=== PATIENT | female | born 1990 | race Caucasian/White ===

== ENCOUNTER 2020-11-22 11:00 | Outpatient (CLI) | payer OTHER, SELFPAY ==
--- NOTE | ~2020-11-22 | US_ITS ---
EXAMINATION: US breast RT limited HISTORY: Palpable lump in the upper outer quadrant of the right breast. Patient with history of segun gn excisional biopsy on the right. TECHNIQUE: Limited right breast ultrasound was performed in the area of clinical concern. FINDINGS: There is no evidence of focal abnormal cystic or solid mass in the vicinity of the palpable abnormality. Features consistent with prior excisional biopsy are noted. More laterally in the upper outer quadrant of the breast, there is normal-appearing dense fibroglandular tissue. IMPRESSION: No suspicious sonographic correlate is identified for the reported palpable abnormality of concern. F urther evaluation at this time should be based on clinical assessment. Continued follow-up physical e xamination is recommended. BI-RADS Category 2: Benign finding(s). Reviewed, dictated and finalized at location A. OYMENT EDUCATIONAL COORD IMPRESSION: No suspicious sonographic correlate is identified for the reported palpable abn ormality of concern. Further evaluation at this time should be based on clinica l assessment. Continued follow-up physical examination is recommended. BI-RADS Category 2: Benign finding(s).
== END 2020-11-22 11:01 | disposition home or self-care (01) ==
LOC: ANHIMG 11:01
PROVIDERS: PCP Internal Medicine; Visit Provider Obstetrics & Gynecology
DX: N63.11 Unspecified lump in the right breast, upper outer quadrant (principal)
CPT/HCPCS: 76642

== ENCOUNTER → 2023-05-16 15:18 | Outpatient (CLI) | payer OTHER, SELFPAY ==
--- NOTE | ~2023-05-16 | US_ITS ---
EXAMINATION: US breast RT limited HISTORY: Painful lump in the upper outer quadrant of the left breast. TECHNIQUE: Limited right breast ultrasound performed. FINDINGS: There is no evidence of focal abnormal cystic or solid mass in the vicinity of the patient reported right breast pain. IMPRESSION: No specific sonographic correlate is identified for the patient's reported right breast pain. Further evaluation at this time should be based on clinical assessment. Continued follow-up physical examina tion is recommended. BI-RADS Category 1: Negative Reviewed, dictated and finalized at location A. IMPRESSION: No specific sonographic correlate is identified for the patient's reported righ t breast pain. Further evaluation at this time should be based on clinical asse ssment. Continued follow-up physical examination is recommended. BI-RADS Category 1: Negative
== END ==
PROVIDERS: PCP Obstetrics & Gynecology; Visit Provider Obstetrics & Gynecology
DX: N63.10 Unspecified lump in the right breast, unspecified quadrant (principal)
CPT/HCPCS: 76642

== ENCOUNTER 2024-05-25 12:57 | Emergency (ER) | payer OTHER, SELFPAY ==
[2024-05-25 13:06] VITALS: BP 107/73; PULSE 79; RESP 18; TEMP 37.1; O2SAT 98
--- NOTE | 2024-05-25 13:10 | ED.URI ---
HPI - URI/Sore Throat General Chief Complaint: Upper Respiratory Infection Stated Complaint: throat Time Seen by Provider: 05/25/24 13:10 Source: patient Mode of arrival: ambulatory Limitations: no limitations History of Present Illness HPI Narrative: 34 yo F presents with c/o sore throat for 2 to 3 days. Sinus pressure, congestion for over a week. Taking zyrtec daily. Feels fatigue and run down. Afebrile. has been taking amox 500mg TID for 1 wk. No improvement of symptoms. Had antibiotic for dental infection. All systems reviewed and negative except as noted above. Related Data Home Medications Medication Instructions Recorded Confirmed norethindrone 1 mg-ethinyl 1 tablet PO DAILY 05/15/21 05/25/24 estradiol 10 mcg (24)-iron 10 mcg(2) tablet (Lo Loestrin Fe) alprazolam 1 mg tablet See Rx Instructions .Route 05/25/24 05/25/24 .COMPLEX PRN Anxiety amoxicillin 500 mg tablet See Rx Instructions .Route .COMPLEX 05/25/24 05/25/24 duloxetine 30 mg capsule,delayed 30 mg PO DAILY 05/25/24 05/25/24 release lisdexamfetamine 30 mg capsule 30 mg PO 05/25/24 (Vyvanse) omeprazole 40 mg capsule,delayed mg 05/25/24 release paroxetine HCl 37.5 mg mg PO 05/25/24 tablet,extended release 24 hr Allergies Allergy/AdvReac Type Severity Reaction Status Date / Time No Known Allergies Allergy Unverified 05/25/21 10:30 Review of Systems Review of Systems: CONSTITUTIONAL: Denies fever, chills, or sweats. EYES: Denies visual changes, redness, or discharge. ENT: Reports rhinorrhea, congestion, sore throat. Denies otalgia. CARDIOVASCULAR: Denies chest pain, palpitations, or edema. RESPIRATORY: Denies cough or dyspnea. GASTROINTESTINAL: Denies abdominal pain, nausea, vomiting, or diarrhea. GENITOURINARY: Denies dysuria or hematuria. SKIN: Denies rash or itching. MUSCULOSKELETAL: Denies back pain, joint pain, or myalgia. NEUROLOGIC: Denies headache, numbness, or weakness. PSYCHIATRIC: Denies anxiety or depression. All other systems reviewed are negative, except as documented in HPI. [facility] Family History Family History (System 05/25/21 @ 10:30 by Meka Tran) Mother Family history of blood dyscrasia Hypertension Family history of elevated blood lipids Grandparent Carcinoma of colon Other Diabetes mellitus Social History Social History (System 05/25/21 @ 10:30 by Meka Tran) Smoking status: Never smoker Second hand tobacco smoke exposure: No Alcohol intake: never Comments At time of signature, agree with nursing past medical, surgical, social and family history. There is no relevant family history pertinent to the presenting complaint. Exam Narrative: GENERAL: This is a well-nourished, well-developed patient, in no apparent distress. HEAD: normocephalic, atraumatic. EYES: PERRL. Sclera clear/white. Vision is grossly intact. EARS: External ears normal, auditory canals clear and without drainage, TMs normal without perforation. Hearing grossly intact. NOSE: External nose normal with mild congestion, erythema and swelling to bilateral nares THROAT: Mucous membranes moist, no significant erythema. No swelling or exudates. NECK: Neck supple, non-tender without lymphadenopathy, masses or thyromegaly. CARDIOVASCULAR: Regular rate and rhythm without murmurs, gallops, or rubs. RESPIRATORY: Clear to auscultation. Breath sounds equal bilaterally. No wheezes, rales, or rhonchi. SKIN: warm, Dry, intact with no suspicious lesions or rash, good texture and turgor. NEURO: awake, alert, and oriented to person, place and time. There were no obvious focal neurologic abnormalities. EXTREMITIES: No joint tenderness, effusion, or edema noted. Course Course Level of Care: Express Care Visit Vital Signs Vital signs: Vital Signs Temperature 37.1 C 05/25/24 13:06 Pulse Rate 79 05/25/24 13:06 Respiratory Rate 18 05/25/24 13:06 Blood Pressure 107/73 05/25/24 13:06
== END 2024-05-25 13:20 | disposition home or self-care (01) ==
PROVIDERS: Emergency Provider Nurse Practitioner Family; PCP Internal Medicine
DX: J01.90 Acute sinusitis, unspecified (principal); K21.9 Gastro-esophageal reflux disease without esophagitis; F41.9 Anxiety disorder, unspecified; F32.A Depression, unspecified
CPT/HCPCS: 99213; G0463

== ENCOUNTER 2025-02-25 16:07 | Emergency (ER) | payer OTHER, SELFPAY ==
--- OUTSIDE RECORDS SUMMARY | 2025-02-25 16:09 | XMS_ITS | Encounter Summary ---
Author Organization [facility] Address [address] [place] [address] Phone Care Team Providers Care Sr Account Executive Name Role Phone Thong Martin MD Primary Care Provider Carlos Gallardo MD Unavailable [phone] Reason for Visit * Reason Comments Medication Refill Encounter Details Date Type Department Care Team (Late st Contact Info) Description 10/10/2023 [facility]ill [facility] [address] [place] [address] Thong Martin MD [address] [address] Medication Refill Social History Tobacco Use Types Packs/Day Years Used Date Smoking Tobacco: Never Smokeless Tobacco: Never Alcohol Use Standard Drinks/Week Comments Yes 0 (1 standard drink = 0.6 oz pur e alcohol) rarely PHQ-2 Answer Date Recorded Total Score - Questions 1-9 0 11/22 Education Answer Date Recorded What is the highest level of school you have completed or the highest degree you have received? Associate degree: occupational, technical, or vocational program 06/12/2023 Sexually Active Control Partners Comments Yes Male Comments No Sex and Gender Information Value Date Recorded Sex Assigned at Not on file Legal Sex Female 11:47 PM CDT Gender Identity Not on file Sexual Orientation Straight 07/03/2023 4: 54 PM CDT documented as of this encounter Miscellaneous Notes * Telephone Encounter - Allie Fitch RN - 10/11/2023 9:25 AM CST PDMP 09/05/23 Medication failed the protocol, provider to review and approve the medication order if appropriate. Requested Prescriptions Pending Prescriptions Disp Refills ALPRAZolam (XANAX) 1 MG Tablet [Pharmacy Med Name: ALPRAZOLAM 1MG TABLETS] 30 Tablet 0 Sig: TAKE 1 TABLET BY MOUTH THREE TIMES DAILY NEEDED FOR SLEEP Not Delegated - Benzodiazepines Protocol Failed - 10/10/2023 10:13 PM Failed - This refill cannot be delegated Passed - Visit with relevant provider in past 12 months or upcoming 90 days Recent Visits Date Type Provider Dept 08/15/23 Office Visit Candy Prabhakar APRN, BASIC COMBATANT SWIMMER [facility] 06/26/23 Office Visit Shailesh Brennan APRN, CNP [facility] 06/13/23 Office Visit Thong Martin MD [facility] 12/14/22 Office Visit Thong Martin MD [facility] 11/30/22 Office Visit [facility] Showing recent visits within past 365 days and meeting all other requirements Future Appointments Date Type Provider Dept 12/17/23 Appointment Thong Martin MD [facility] Showing future appointments within next 90 days and meeting all other 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 documented in this encounter Plan of Treatment Upcoming Encounters Date Type Department Care Team (Late st Contact Info) Description 04/05/2025 2:45 PM CDT Office Visit [facility] - Family Medicine - [place] [address] [place] [address] Thong Martin MD [address] [address] documented as of this encounter Visit Diagnoses Diagnosis Encounter for long-term (current) use of medications Encounter for long-term (current) use of other medications documented in this encounter Additional Health Concerns Infection Onset Date Last Indicated Resolved Time COVID - 19 09/30/2024 09/30/2024 09/30/2024 1:30 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 Respiratory Rule-Out 09/30/2024 09/30/2024 024 1:30 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
--- OUTSIDE RECORDS SUMMARY | 2025-02-25 16:09 | XMS_ITS | Encounter Summary ---
Author Organization [facility] Address [address] [place] [address] Phone Care Team Providers Care Documentum Consultant Name Role Phone Thong Martin MD Primary Care Provider Carlos Gallardo MD Unavailable [phone] Reason for Visit * Reason Comments Medication Refill Encounter Details Date Type Department Care Team (Late st Contact Info) Description 02/07/2024 Refill [facility] [address] [place] [address] Thong Martin MD [address] [address] Medication Refill Social History Tobacco Use Types Packs/Day Years Used Date Smoking Tobacco: Never Smokeless Tobacco: Never Alcohol Use Standard Drinks/Week Comments Yes 0 (1 standard drink = 0.6 oz pur e alcohol) rarely [facility] Utilities Answer Date Recorded In the past 12 months has [employer] electric, gas, oil, or water company threatened to shut off services in your home? No 02/11/2024 Social Connection and Isolat ion Panel [NHANES] Answer Date Recorded In a typical week, how many times do you talk on the phone with family, friends, or neighbors? More than three times a week 02/11/2024 How often do you get togethe r with friends or relatives? Three times a week 02/11/2024 How often do you attend chur ch or sikhism services? Never 02/11/2024 Do you belong to any clubs o r organizations such as gnosticist groups, unions, fraternal or athletic groups, or school groups? No 02/11/2024 How often do you attend meet ings of the clubs or organizations you belong to? Never 02/11/2024 Are you , , di vorced, , never , or living with a partner? 02/11/2024 AUDIT-C Answer Date Recorded Q1: How often do you have a drink containing alc ohol? 2-4 times a month 02/11/2024 Q2: How many drinks containi ng alcohol do you have on a typical day when you are drinking? 1 or 2 02/11/2024 Q3: How often do you have si x or more drinks on one occasion? Less than monthly 02/11/2024 Overall Financial Resource Strain (CARDIA) Answe r Date Recorded How hard is it for you to pa y for the very basics like food, housing, medical care, and heating? Somewhat hard 02/11/2024 PHQ-2 Answer Date Recorded Total Score - Questions 1-9 0 01/20 [facility] - Occupational Stress Questionnaire Answer Date Recorded Do you feel stress - tense, restless, nervous, or anxious, or unable to sleep at night because your mind is troubled all the time - these days? Rather much 02/11/2024 Exercise Vital Sign Answer Date Recorde d On average, how many days pe r week do you engage in moderate to strenuous exercise (like a brisk walk)? 4 days 02/11/2024 On average, how many minutes do you engage in exercise at this level? 60 min 02/11/2024 Hunger Vital Sign Answer Date Recorded Within the past 12 months, y ou worried that your food would run out before you got the money to buy more. Never true 02/11/20 24 Within the past 12 months, t he food you bought just didn't last and you didn't have money to get more. Never true 02/11/2024 PRAPARE - Transportation Answer Date Re corded In the past 12 months, has l ack of transportation kept you from medical appointments or from getting medications? No 01/20 In the past 12 months, has l ack of transportation kept you from meetings, work, or from getting things needed for daily living? No 02/11/2024 Housing Stability Vital Sign Answer Tomás e Recorded In the last 12 months, was t here a time when you were not able to pay the mortgage or rent on time? No 02/11/2024 Number of Places Lived in the Last Year Not on f ile 02/11/2024 In the last 12 months, was t here a time when you did not have a steady place to sleep or slept in a correction (including now)? No 02/11/2024 Education Answer Date Recorded What is the [...] Telephone Encounter - Allie Fitch RN - 02/07/2024 3:43 PM CDT Refused Today (02/07/2024): Patient needs appointment ALPRAZolam (XANAX) 1 MG Tablet Sig: TAKE 1 TABLET BY MOUTH THREE TIMES DAILY NEEDED FOR SLEEP Disp: 30 Tablet Refills: 0 Received from: Pharmacy Refused by Dr Martin. Needs OV documented in this encounter Plan of Treatment Upcoming Encounters Date Type Department Care Team (Late st Contact Info) Description 04/05/2025 2:45 PM CDT [facility] Visit [facility] [address] [place] [address] Thong Martin MD [address] [address] documented as of this encounter Visit Diagnoses Diagnosis Primary insomnia Persistent disorder of initiating or maintaining sleep documented in this encounter Additional Health Concerns Infection Onset Date Last Indicated Resolved Time COVID - 19 09/30/2024 09/30/2024 09/30/2024 1:30 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
--- OUTSIDE RECORDS SUMMARY | 2025-02-25 16:09 | XMS_ITS | Encounter Summary ---
Author Organization [facility] Address [address] [place] [address] Phone Care Team Providers Care Truck Bracer Name Role Phone Thong Martin MD Primary Care Provider [phone] Carlos Gallardo MD Unavailable [phone] Reason for Visit * Reason Comments Medication Refill Encounter Details Date Type Department Care Team (Late st Contact Info) Description 02/07/2024 Refill [facility] - Family Medicine [facility] [address]2 [place] [address] Thong Martin MD [address] [address] Medication Refill Social History Tobacco Use Types Packs/Day Years Used Date Smoking Tobacco: Never Smokeless Tobacco: Never Alcohol Use Standard Drinks/Week Comments Yes 0 (1 standard drink = 0.6 oz pur e alcohol) rarely [facility] Utilities Answer Date Recorded In the past 12 months has [employer] electric, gas, oil, or water company threatened [...] often do you attend chur ch or anglican services? Never 02/11/2024 Do you belong to any clubs o r organizations such as restoration groups, unions, fraternal or athletic groups, or [...] Total Score - Questions 1-9 0 01/20 [facility] of Occupat ional Health - Occupational Stress [...] place to sleep or slept in a intermediate (including now)? No 02/11/2024 Education Answer Date [...] encounter Miscellaneous Notes * Telephone Encounter - Alta Nielsen RMA - 02/10/2024 3:09 PM CDT scheduled * Telephone Encounter - Allie Fitch RN - 02/07/2024 1:57 PM CDT PDMP 12/23/23 Medication failed the protocol, provider to review and approve the medication order if appropriate. Requested Prescriptions Pending Prescriptions Disp Refills ALPRAZolam (XANAX) 1 MG Tablet [Pharmacy Med Name: ALPRAZOLAM 1MG TABLETS] 30 Tablet 0 Sig: TAKE 1 TABLET BY MOUTH THREE TIMES DAILY NEEDED FOR SLEEP Not Delegated - Benzodiazepines Protocol Failed - 02/07/2024 9:46 AM Failed - This refill cannot be delegated Passed - Visit with relevant provider in past 12 months or upcoming 90 days Recent Visits Date Type Provider Dept 08/15/23 Office Visit Candy Prabhakar APRN, SALES AG[employer] [facility] 06/26/23 Office Visit Shailesh Brennan APRN, [facility] 06/13/23 Office Visit Thong Martin MD [facility] Showing recent visits within past 365 days and meeting all other requirements Future Appointments No visits were found meeting these conditions. Showing future appointments within next 90 days and meeting all other requirements documented in this encounter Plan of Treatment Upcoming Encounters Date Type Department Care Team (Late st Contact Info) Description 04/05/2025 2:45 PM CDT Office Visit [facility] - Family Medicine [facility] [address] [place] [address] Thong Martin MD [address] [address] documented as of this encounter Visit Diagnoses Diagnosis Encounter for long-term (current) use of medications Encounter for long-term (current) use of other medications documented in this encounter Additional Health Concerns Infection Onset Date Last Indicated Resolved Time COVID - 19 09/30/2024 09/30/2024 09/30/2024 1:30 PM BOTTOM LINER Respiratory Rule-Out 09/30/2024 09/30/2024 024 1:30 PM BOTTOM LINER Assessment Noted Time PHQ-9 Depression Total Score: 0 12/14/19 23 11:02 AM BOTTOM LINER documented as of this encounter Care Teams Truck Bracer Relationship Specialty Start Date End Date Tohng Martin MD [address] [facility] [place] [address] PCP - General Family Medicine 09/12/15 Carlos Gallardo MD [address] [place] [address] [address] [place] [address] Consulting Physician Obstetrics & Gynecology 08/13/17 documented as of this encounter
--- OUTSIDE RECORDS SUMMARY | 2025-02-25 16:09 | XMS_ITS | Encounter Summary ---
Author Organization [facility] Address [address] [place] [address] Phone Care Team Providers Care Customer Care Manager Name Role Phone Thong Martin MD Primary Care Provider Carlos Gallardo MD Unavailable [phone] Reason for Visit * Reason Comments Medication Refill Encounter Details Date Type Department Care Team (Late st Contact Info) Description 02/24/2023 Refill [facility] [address]2 [place] [address] Thong Martin MD #[address] [address] Medication Refill Social History Tobacco Use Types Packs/Day Years Used Date Smoking Tobacco: Never Smokeless Tobacco: Never Alcohol Use Standard Drinks/Week Comments Yes 0 (1 standard drink = 0.6 oz pur e alcohol) rarely PHQ-2 Answer Date Recorded Total Score - Questions 1-9 0 11/22 Sexually Active Control Partners Comments Yes Male Comments No Sex and Gender Information Value Date Recorded Sex Assigned at Not on file Legal Sex Female 11:47 PM CDT Gender Identity Not on file Sexual Orientation Straight 07/03/2023 4: 54 PM CDT documented as of this encounter Miscellaneous Notes * Telephone Encounter - Allie Ficth RN - 02/25/2023 12:26 PM CDT PDMP 01/21/23 Medication failed the protocol, provider to review and approve the medication order if appropriate. Requested Prescriptions Pending Prescriptions Disp Refills ALPRAZolam (XANAX) 0.5 MG Tablet [Pharmacy Med Name: ALPRAZOLAM 0.5MG TABLETS] 30 Tablet 0 Sig: TAKE 1 TABLET BY MOUTH EVERY NIGHT NEEDED FOR SLEEP Not Delegated - Benzodiazepines Protocol Failed - 02/24/2023 10:01 PM Failed - This refill cannot be delegated Passed - Visit with relevant provider in past 12 months or upcoming 90 days Recent Visits Date Type Provider Dept 12/14/22 Office Visit [facility] 11/30/22 Office Visit Shailesh Brennan APRN, PRESS CLEANER [facility] 06/28/22 Office Visit Thong Martin MD [facility] 04/09/22 Office Visit Candy Prabhakar APRN, [facility] 03/01/22 Office Visit [facility] Showing recent visits within past 365 days and meeting all other requirements Future Appointments No visits were found meeting these conditions. Showing future appointments within next 90 days and meeting all other requirements documented in this encounter Plan of Treatment Upcoming Encounters Date Type Department Care Team (Late st Contact Info) Description 04/05/2025 2:45 PM CDT Office Visit [facility] - Family Medicine [facility] [address]2 [place] [address] Thong Martin MD #[address] [address] documented as of this encounter Visit Diagnoses Diagnosis Primary insomnia Persistent disorder of initiating or maintaining sleep documented in this encounter Additional Health Concerns Infection Onset Date Last Indicated Resolved Time COVID - 19 09/30/2024 09/30/2024 09/30/2024 1:30 PM MANAGER TAX Respiratory Rule-Out 09/30/2024 09/30/2024 024 1:30 PM MANAGER TAX Assessment Noted Time PHQ-9 Depression Total Score: 0 12/14/19 23 11:02 AM MANAGER TAX documented as of this encounter Care Teams Customer Care Manager Relationship Specialty Start Date End Date Thong Martin MD [address] [place] [address] PCP - General Family Medicine 09/12/15 Carlos Gallardo MD [address] [facility] [address] [place] [address] Consulting Physician Obstetrics & Gynecology 08/13/17 documented as of this encounter
--- OUTSIDE RECORDS SUMMARY | 2025-02-25 16:09 | XMS_ITS | Encounter Summary ---
Author Organization [facility] Address [address] [place] [address] Phone Care Team Providers Care Tool Machine Setup Operator Name Role Phone Thong Martin MD Primary Care Provider [phone] Carlos Gallardo MD Unavailable [phone] Reason for Visit * Reason Comments Medication Refill Encounter Details Date Type Department Care Team (Late st Contact Info) Description 02/25/2025 [facility]ill [facility] #2 [place] [address] Thong Martin MD #[address] [address] Medication Refill Social History Tobacco Use Types Packs/Day Years Used Date Smoking Tobacco: Never Smokeless Tobacco: Never Alcohol Use Standard Drinks/Week Comments Yes 0 (1 standard drink = 0.6 oz pur e alcohol) rarely [facility] Utilities Answer Date Recorded In the past 12 months has [employer] electric, gas, oil, or water company threatened to shut off services in your home? No 07/16/2024 Social Connection and Isolat ion Panel [NHANES] Answer Date Recorded In a typical week, how many times do you talk on the phone with family, friends, or neighbors? More than three times a week 07/16/2024 How often do you get togethe r with friends or relatives? Three times a week 07/16/2024 How often do you attend chur ch or tenriism services? Never 07/16/2024 Do you belong to any clubs o r organizations such as restorationism groups, unions, fraternal or athletic groups, or school groups? Yes 07/16/2024 How often do you attend meet ings of the clubs or organizations you belong to? More than 4 times per year 07/16/2024 Are you , , di vorced, , never , or living with a partner? 07/16/2024 AUDIT-C Answer Date Recorded Q1: How often do you have a drink containing alc ohol? Monthly or less 07/16/2024 Q2: How many drinks containi ng alcohol do you have on a typical day when you are drinking? 1 or 2 07/16/2024 Q3: How often do you have si x or more drinks on one occasion? Less than monthly 07/16/2024 Overall Financial Resource Strain (CARDIA) Answe r Date Recorded How hard is it for you to pa y for the very basics like food, housing, medical care, and heating? Not very hard 07/16/2024 PHQ-2 Answer Date Recorded Total Score - Questions 1-9 0 09/20 [facility] ional Health - Occupational Stress Questionnaire Answer Date Recorded Do you feel stress - tense, restless, nervous, or anxious, or unable to sleep at night because your mind is troubled all the time - these days? To some extent 07/16/2024 Exercise Vital Sign Answer Date Recorde d On average, how many days pe r week do you engage in moderate to strenuous exercise (like a brisk walk)? 2 days 07/16/2024 On average, how many minutes do you engage in exercise at this level? 40 min 07/16/2024 Hunger Vital Sign Answer Date Recorded Within the past 12 months, y ou worried that your food would run out before you got the money to buy more. Never true 07/16/20 24 Within the past 12 months, t he food you bought just didn't last and you didn't have money to get more. Never true 07/16/2024 PRAPARE - Transportation Answer Date Re corded In the past 12 months, has l ack of transportation kept you from medical appointments or from getting medications? No 06/22 In the past 12 months, has l ack of transportation kept you from meetings, work, or from getting things needed for daily living? No 07/16/2024 Housing Stability Vital Sign Answer Tomás e [...] place to sleep or slept in a fpc (including now)? No 02/11/2024 Housing Stability Vital Sign Answer Tomás e Recorded In the last 12 months, was t here a time when you were not able to pay the mortgage or rent on time? No 07/16/2024 In the past 12 months, how m any times have you moved where you were living? 0 07/16/2024 At any time in the past 12 m [facility], were you homeless or living in a fpc (including now)? No 07/16/2024 Education Answer Date Recorded What is the [...] PM CDT documented as of this encounter Plan of Treatment Upcoming Encounters Date Type Department Care Team (Late st Contact Info) Description 04/05/2025 2:45 PM CDT Office Visit [facility] Medicine [facility] [address] [place] [address] Thong Martin MD [address] [address] documented as of this encounter Visit Diagnoses Diagnosis Encounter for long-term (current) use of medications Encounter for long-term (current) use of other medications documented in this encounter Additional Health Concerns Assessment Noted Time PHQ-9 Depression Total Score: 0 12/11/20 24 1:07 PM CHEMIST PHYSICAL documented as of this encounter Care Teams Tool Machine Setup Operator Relationship Specialty Start Date End Date Thong Martin MD [facility] [facility] [address] [place] [address] PCP - General Family Medicine 09/12/15 Carlos Gallardo MD [address] [facility] [address] [place] [address] Consulting Physician Obstetrics & Gynecology 08/13/17 documented as of this encounter
--- OUTSIDE RECORDS SUMMARY | 2025-02-25 16:09 | XMS_ITS | Encounter Summary ---
Author Organization [facility] Address [address] [place] [address] Phone Care Team Providers Care Editorial Director Name Role Phone Thong Martin MD Primary Care Provider Carlos Gallardo MD Unavailable [phone] Reason for Visit * Reason Comments Medication Refill Encounter Details Date Type Department Care Team (Late st Contact Info) Description 08/12/2023 Refill [facility] #2 [place] [address] Thong Martin MD #[address] [address] Medication Refill Social History Tobacco Use Types [...] Orientation Straight 07/03/2023 4: 54 PM CDT COVID-19 Exposure Response Date Recorded In the last 10 days, have romina u been in contact with someone who was confirmed or suspected to have Coronavirus/COVID-19? No / Unsure 08/15/2023 8:39 AM CDT documented as of this encounter Miscellaneous Notes * Telephone Encounter - Allie Fitch RN - 08/13/2023 10:55 AM CDT PDMP 07/14/23 - 10 days Medication failed the protocol, provider to review and approve the medication order if appropriate. Requested Prescriptions Pending Prescriptions Disp Refills ALPRAZolam (XANAX) 1 MG Tablet [Pharmacy Med Name: ALPRAZOLAM 1MG TABLETS] 30 Tablet 0 Sig: TAKE 1 TABLET BY MOUTH THREE TIMES DAILY NEEDED FOR SLEEP Not Delegated - Benzodiazepines Protocol Failed - 08/12/2023 4:37 PM Failed - This refill cannot be delegated Passed - Visit with relevant provider in past 12 months or upcoming 90 days Recent Visits Date Type Provider Dept 06/26/23 Office Visit Shailesh Brennan APRN, [facility] 06/13/23 Office Visit Thong Martin MD [facility] [place] 12/14/22 Office Visit Thong Martin MD [facility] 11/30/22 Office Visit Shailesh Brennan APRN, [facility] Showing recent visits within past 365 days [...] Visit [facility] - [place] [address] [place] [address] Thong Martin MD [address] [address] documented as of this encounter Visit Diagnoses Diagnosis Encounter for long-term (current) use of medications Encounter for long-term (current) use of other medications documented in this encounter Additional Health Concerns Infection Onset Date Last Indicated Resolved Time COVID - 19 09/30/2024 09/30/2024 09/30/2024 1:30 PM DELIVERY ARCHITECT Respiratory Rule-Out 09/30/2024 09/30/2024 024 1:30 PM DELIVERY ARCHITECT Assessment Noted Time PHQ-9 Depression Total Score: 0 12/14/19 23 11:02 AM DELIVERY ARCHITECT documented as of this encounter Care Teams Editorial Director Relationship Specialty Start Date End Date Thong Martin MD #2 [facility] [address] [facility] [address] [place] [address] PCP - General Family Medicine 09/12/15 Carlos Gallardo MD [address] [facility] [address] [place] [address] Consulting Physician Obstetrics & Gynecology 08/13/17 documented as of this encounter
--- OUTSIDE RECORDS SUMMARY | 2025-02-25 16:09 | XMS_ITS | Clinical Summary ---
Author Organization [facility] [employer] Address [address] [place] [address] Care Team Providers Care Continuing Education Instructor Name Role Phone Unavailable Primary Care Provider Unavailabl e Source Comments [facility],non-owned Affiliates and Associated Physician Practices is amultiple site organization consisting of ambulatory clinics and hospital sitesin [place], [place], [place] and [place]. This disclosure is being madepursuant to the Care Everywhere program and may not contain all information available regarding this patient. Last updated 18.[facility] [employer] Social History Tobacco Use Types Packs/Day Years Used Date Smoking Tobacco: Never Assessed Comments Unknown Sex and Gender Information Value Date Recorded Sex Assigned at Not on file Legal Sex Female 6:06 PM HYDRO STATION SUPERVISOR Gender Identity Not on file Sexual Orientation Not on file Plan of Treatment Health Maintenance Due Date Last Done Comments HIV SCREENING 01/11/2007 HEPATITIS C SCREENING 01/07/2010 DTAP/TDAP/TD VACCINES (1 - Tdap) 01/11/2011 HEPATITIS B VACCINE (1 of 3 - 19+ 3-dose series) 01/11/2011 COVID-19 VACCINE ( - 2023-2 5 season) 2024 DEPRESSION SCREENING 10/21/2024 INFLUENZA VACCINE (Season Ended) 2025 ZOSTER VACCINE (1 of 2) 01/11/2042 HIB VACCINE Aged Out No longer eligi ble based on patient's age to complete this topic HPV VACCINE Aged Out No longer eligi ble based on patient's age to complete this topic MENINGOCOCCAL (Group B) VACC INE SHARED DECISION-MAKING Aged Out No longer eligibl e based on patient's age to complete this topic MENINGOCOCCAL GROUPS A/C/Y/W VACCINE Aged Out No longer eligible b ased on patient's age to complete this topic PNEUMOCOCCAL VACCINE Aged Out No long er eligible based on patient's age to complete this topic Insurance [facility]
--- OUTSIDE RECORDS SUMMARY | 2025-02-25 16:09 | XMS_ITS | Encounter Summary ---
Author Organization [facility] Address [address] [place] [address] Phone Care Team Providers Care Multiple Spindle Router Operator Name Role Phone Thong Martin MD Primary Care Provider Carlos Gallardo MD Unavailable [phone] Reason for Visit * Reason Comments Medication Refill Encounter Details Date Type Department Care Team (Late st Contact Info) Description 03/04/2021 Refill [facility] #2 [place] [address] Thong Martin MD #[address] [address] Medication Refill Social History Tobacco Use Types Packs/Day Years Used Date Smoking Tobacco: Never Smokeless Tobacco: Never Alcohol Use Standard Drinks/Week Comments Yes 0 (1 standard drink = 0.6 oz pur e alcohol) rarely PHQ-2 Answer Date Recorded Total Score - Questions 1-9 0 11/21 Sexually Active Control Partners Comments Yes Male Comments No Sex and Gender Information Value Date Recorded Sex Assigned at Not on file Legal Sex Female 11:47 PM CDT Gender Identity Not on file Sexual Orientation Straight 07/03/2023 4 :54 PM CDT documented as of this encounter Miscellaneous Notes * Telephone Encounter - Alta Nielsen RMA - 03/07/2021 10:32 AM CDT Pt refuses to make appt at this time. * Telephone Encounter - Allie Fitch RN - 03/07/2021 9:09 AM CDT Patient needs an appointment with PCP for medication. documented in this encounter Plan of Treatment Upcoming Encounters Date Type Department Care Team (Late st Contact Info) Description 04/05/2025 2:45 PM CDT Office Visit [facility] Medicine - [place] [address] [place] [address] Thong Martin [facility] [address] [address] documented as of this encounter Visit Diagnoses Not on filedocumented in this encounter Additional Health Concerns Infection Onset Date Last Indicated Resolved Time COVID - 19 09/18/2021 09/18/2021 10/08/2021 12:1 6 AM TELEVISION TECHNICIAN COVID - 19 Confirmed 09/18/2021 09/18/2021 021 12:16 AM TELEVISION TECHNICIAN COVID - 19 09/30/2024 09/30/2024 09/30/2024 1:30 PM TELEVISION TECHNICIAN Respiratory Rule-Out 09/30/2024 09/30/2024 024 1:30 PM TELEVISION TECHNICIAN Assessment Noted Time PHQ-9 Depression Total Score: 0 11/30/19 21 2:04 PM TELEVISION TECHNICIAN documented as of this encounter Care Teams Multiple Spindle Router Operator Relationship Specialty Start Date End Date Thong Martin MD [address] [address] PCP - General Family Medicine 09/12/15 Carlos Gallardo MD [address] [place] [address] [facility] [address] [place] [address] Consulting Physician Obstetrics & Gynecology 08/13/17 documented as of this encounter
--- OUTSIDE RECORDS SUMMARY | 2025-02-25 16:09 | XMS_ITS | Encounter Summary ---
Author Organization [facility] Address [address] [place] [address] Phone Care Team Providers Care Interior Specialist Name Role Phone Thong Martin MD Primary Care Provider Carlos Gallardo MD Unavailable [phone] Reason for Visit * Reason Comments Medication Refill Encounter Details Date Type Department Care Team (Late st Contact Info) Description 03/08/2024 Refill [facility] #2 [place] [address] Thong Martin MD #[address] [address] Medication Refill Social History Tobacco Use Types Packs/Day Years Used Date Smoking Tobacco: Never Smokeless Tobacco: Never Alcohol Use Standard Drinks/Week Comments Yes 0 (1 standard drink = 0.6 oz pur e alcohol) rarely [facility] Utilities Answer Date Recorded In the past 12 months has [employer] electric, gas, oil, or water company threatened [...] often do you attend chur ch or confucianism services? Never 02/11/2024 Do you belong to any clubs o r organizations such as methodist groups, unions, fraternal or athletic groups, or [...] Total Score - Questions 1-9 0 01/20 [facility] of Occupat ional Health - Occupational Stress [...] place to sleep or slept in a custodial (including now)? No 02/11/2024 Education Answer Date [...] Telephone Encounter - Allie Fitch RN - 03/09/2024 11:49 AM CDT PDMP 02/12/24 - 10 days Medication failed the protocol, provider to review and approve the medication order if appropriate. Requested Prescriptions Pending Prescriptions Disp Refills ALPRAZolam (XANAX) 1 MG Tablet [Pharmacy Med Name: ALPRAZOLAM 1MG TABLETS] 30 Tablet 0 Sig: TAKE 1 TABLET BY MOUTH THREE TIMES DAILY NEEDED FOR SLEEP Not Delegated - Benzodiazepines Protocol Failed - 03/08/2024 8:19 PM Failed - This refill cannot be delegated Passed - Visit with relevant provider in past 12 months or upcoming 90 days Recent Visits Date Type Provider Dept 02/11/24 Office Visit Thong Martin MD [facility] 08/15/23 Office Visit Candy Prabhakar APRN, [facility] 06/26/23 Office Visit Shailesh Brennan APRN, [facility] 06/13/23 Office [facility] Showing recent visits within past 365 days and meeting all other requirements Future Appointments No visits were found meeting these conditions. Showing future appointments within next 90 days and meeting all other requirements documented in this encounter Plan of Treatment Upcoming Encounters Date Type Department Care Team (Late st Contact Info) Description 04/05/2025 2:45 PM CDT Office Visit [facility] #2 [place] [address] Thong Martin MD #[address] [address] documented as of this encounter Visit Diagnoses Diagnosis Encounter for long-term (current) use of medications Encounter for long-term (current) use of other medications documented in this encounter Additional Health Concerns Infection Onset Date Last Indicated Resolved Time COVID - 19 09/30/2024 09/30/2024 09/30/2024 1:30 PM ASP NET DEVELOPER Respiratory Rule-Out 09/30/2024 09/30/2024 024 1:30 PM ASP NET DEVELOPER Assessment Noted Time PHQ-9 Depression Total Score: 0 02/11/20 24 1:26 PM CDT documented as of this encounter Care Teams Interior Specialist Relationship Specialty Start Date End Date Thong Martin MD #[address] [address] PCP - General Family Medicine 09/12/15 Carlos Gallardo MD [address] [place] [address] [facility] [address] [place] [address] Consulting Physician Obstetrics & Gynecology 08/13/17 documented as of this encounter
--- OUTSIDE RECORDS SUMMARY | 2025-02-25 16:09 | XMS_ITS | Encounter Summary ---
Author Organization [facility] Address [address] [place] [address] Phone Care Team Providers Care Analytical Sciences Director Name Role Phone Thong Martin MD Primary Care Provider [phone] Carlos Gallardo MD Unavailable [phone] Reason for Visit * Reason Comments Medication Refill Encounter Details Date Type Department Care Team (Late st Contact Info) Description 06/24/2023 Refill [facility] #2 [place] [address] Thong Martin MD #[address] [address] Medication Refill Social History Tobacco Use Types [...] suspected to have Coronavirus/COVID-19? No / Unsure 06/26/2023 11:19 AM CDT documented as of this encounter Miscellaneous Notes * Telephone Encounter - Allie Fitch RN - 06/25/2023 10:05 AM CDT Medication warning Per nursing clinical judgement, provider to review and approve the medication(s) order(s) if appropriate. Requested Prescriptions Pending Prescriptions Disp Refills PARoxetine CR (PAXIL-CR) 37.5 MG TABLET SR 24 HR [Pharmacy Med Name: PARoxetine HCl ER 37.5 MG OralTablet Extended Release 24 Hour] 90 Tablet 1 Sig: Take 1 tablet by mouth once daily SSRI (6 Month Refill Only) Protocol Passed - 06/24/2023 9:16 AM Passed - No test in the past 12 months or most recent test was negative Passed - No active on record Passed - Visit with relevant provider in past 6 months or upcoming 90 days Recent Visits Date Type Provider Dept 06/13/23 Office Visit Thong Martin MD [facility] Showing recent visits within past 182 days and meeting all other requirements Future Appointments No visits were found meeting these conditions. Showing future appointments within next 90 days and meeting all other requirements Passed - Patient has established therapy with SSRI for at least 6 months Passed - Has an encounter in the past 6 months with a depression, anxiety, adjustment disorder, OCD, or PTSD visit diagnosis documented in this encounter Plan of Treatment Upcoming Encounters Date Type Department Care Team (Late st Contact Info) Description 04/05/2025 2:45 PM CDT Office Visit [facility] - Family Medicine - [place] [address] [place] [address] Thong Martin MD [address] [address] documented as of this encounter Visit Diagnoses Not on filedocumented in this encounter Additional Health Concerns Infection Onset Date Last Indicated Resolved Time COVID - 19 09/30/2024 09/30/2024 09/30/2024 1:30 PM CORPORATE COMMUNICATIONS SPECIALIST Respiratory Rule-Out 09/30/2024 09/30/2024 024 1:30 PM CORPORATE COMMUNICATIONS SPECIALIST Assessment Noted Time PHQ-9 Depression Total Score: 0 12/14/19 11:02 AM CORPORATE COMMUNICATIONS SPECIALIST documented as of this encounter Care Teams Analytical Sciences Director Relationship Specialty Start Date End Date Thong Martin MD #2 [facility] [address] [place] [address] PCP - General Family Medicine 09/12/15 Carlos Gallardo MD [address] [facility] [address] [place] [address] Consulting Physician Obstetrics & Gynecology 08/13/17 documented as of this encounter
--- OUTSIDE RECORDS SUMMARY | 2025-02-25 16:09 | XMS_ITS | Encounter Summary ---
Author Organization [facility] Address [address] [place] [address] Phone Care Team Providers Care Agricultural Production Engineer Name Role Phone Thong Martin MD Primary Care Provider Carlos Gallardo MD Unavailable [phone] Reason for Visit * Reason Comments Medication Refill Encounter Details Date Type Department Care Team (Late st Contact Info) Description 01/14/2022 Refill [facility] #2 [place] [address] Thong Martin MD #[address] [address] Medication Refill Social History Tobacco Use Types [...] Telephone Encounter - Alta Nielsen RMA - 01/16/2022 9:01 AM CDT Spoke with patient, states she doesn't want to come into office visit due to cost, I explained she needed to come in since it's been 6 mo and needed a refill on lorazepam and drug screen. She did notknow it was a controlled substance so stated she did not want refill and did not want an appointment since she went to [facility] to see a different Doctor and is now taking hydroxizine. * Telephone Encounter - Allie Fitch RN - 01/15/2022 3:12 PM CDT Per PCP, OV needed * Telephone Encounter - Allie Fitch RN - 01/15/2022 2:36 PM CDT PDMP 12/26/21 (7 days) Medication failed the protocol, provider to review and approve the medication order if appropriate. Requested Prescriptions Pending Prescriptions Disp Refills LORazepam (ATIVAN) 0.5 MG Tablet [Pharmacy Med Name: LORAZEPAM 0.5MG TABLETS] 30 Tablet Sig: TAKE 1 TABLET BY MOUTH EVERY 6 HOURS NEEDED FOR ANXIETY Not Delegated - Benzodiazepines Protocol Failed - 01/14/2022 9:29 PM Failed - This refill cannot be delegated Passed - Visit with relevant provider in past 12 months or upcoming 90 days Recent Visits Date Type Provider Dept 09/18/21 Office Visit Maren Anna PAC [facility] [place] 07/21/21 Office Visit Thong Martin MD [facility] [place] Showing recent visits within past 365 days and meeting all other requirements Future Appointments No visits were found meeting these conditions. Showing future appointments within next 90 days and meeting all other requirements documented in this encounter Plan of Treatment Upcoming Encounters Date Type Department Care Team (Late st Contact Info) Description 04/05/2025 2:45 PM CDT Office Visit [facility] Group - Family Medicine - [place] [address] [place] [address] Thong Martin MD #2 [address] [facility] [place] [address] documented as of this encounter Visit Diagnoses Diagnosis Anxiety Anxiety state, unspecified documented in this encounter Additional Health Concerns Infection Onset Date Last Indicated Resolved Time COVID - 19 09/30/2024 09/30/2024 09/30/2024 1:30 PM MACHINE OPERATOR HOP PICKER Respiratory Rule-Out 09/30/2024 09/30/2024 024 1:30 PM MACHINE OPERATOR HOP PICKER Assessment Noted Time PHQ-9 Depression Total Score: 0 11/30/19 21 2:04 PM MACHINE OPERATOR HOP PICKER documented as of this encounter Care Teams Agricultural Production Engineer Relationship Specialty Start Date End Date Thong Martin MD #[address] [address] PCP - General Family Medicine 09/12/15 Carlos Gallardo MD 4 [facility] [address] [place] [address] Consulting Physician Obstetrics & Gynecology 08/13/17 documented as of this encounter
--- OUTSIDE RECORDS SUMMARY | 2025-02-25 16:09 | XMS_ITS | Encounter Summary ---
Author Organization [facility] Address [address] [place] [address] Phone Care Team Providers Care Corporate Legal Intern Name Role Phone Thong Martin MD Primary Care Provider Carlos Gallardo MD Unavailable [phone] Reason for Visit * Reason Comments Medication Refill Encounter Details Date Type Department Care Team (Late st Contact Info) Description 08/31/2023 Refill [facility] - [facility] [address] [place] [address] Thong Martin MD #[address] [address] Medication Refill Social History Tobacco Use Types [...] encounter Miscellaneous Notes * Telephone Encounter - Shirin Burnham RN - 08/31/2023 3:49 PM MONOTYPE OPERATOR This script differs from previous script. How often do you want pt to take this PRN? PDMP 08-13-23 #30 Medication failed the protocol, provider to review and approve the medication order if appropriate. Requested Prescriptions Pending Prescriptions Disp Refills ALPRAZolam (XANAX) 0.5 MG Tablet [Pharmacy Med Name: ALPRAZOLAM 0.5MG TABLETS] 30 Tablet Sig: TAKE 1 TABLET BY MOUTH EVERY NIGHT NEEDED FOR ANXIETY Not Delegated - Benzodiazepines Protocol Failed - 08/31/2023 1:53 AM Failed - This refill cannot be delegated Passed - Visit with relevant provider in past 12 months or upcoming 90 days Recent Visits Date Type Provider Dept 08/15/23 Office Visit Candy Prabhakar APRN, [facility] 06/26/23 Office Visit Shailesh Brennan APRN, CNP [facility] 06/13/23 Office Visit Thong Martin MD [facility] 12/14/22 Office Visit Thong Martin MD [facility] 11/30/22 Office Visit Shailesh Brennan APRN, [facility] Showing recent visits within past 365 days and meeting all other requirements Future Appointments No visits were found meeting these conditions. Showing future appointments within next 90 days and meeting all other requirements TYPE OPERATOR documented in this encounter Plan of Treatment Upcoming Encounters Date Type Department Care Team (Late st Contact Info) Description 04/05/2025 2:45 PM CDT Office Visit [facility] - [facility] - [place] [address] [place] [address] Thong Martin MD [address] [address] documented as of this encounter Visit Diagnoses Diagnosis Primary insomnia Persistent disorder of initiating or maintaining sleep documented in this encounter Additional Health Concerns Infection Onset Date Last Indicated Resolved Time COVID - 19 09/30/2024 09/30/2024 09/30/2024 1:30 PM MONOTYPE OPERATOR Respiratory Rule-Out 09/30/2024 09/30/2024 024 1:30 PM MONOTYPE OPERATOR Assessment Noted Time PHQ-9 Depression Total Score: 0 12/14/19 23 11:02 AM MONOTYPE OPERATOR documented as of this encounter Care Teams Corporate Legal Intern Relationship Specialty Start Date End Date Thong Martin MD #2 [facility] [address] [facility] [address] [place] [address] PCP - General Family Medicine 09/12/15 Carlos Gallardo MD [address] [place] [address] Consulting Physician Obstetrics & Gynecology 08/13/17 documented as of this encounter
--- OUTSIDE RECORDS SUMMARY | 2025-02-25 16:09 | XMS_ITS ---
Author Organization [facility] Address [address] [place], [place] [id number] Care Team Providers Care Design Printing Machine Setter Name Role Phone Conner Saunders DO [phone] Allergies No Known Allergies REASON FOR VISIT Post gastric bypass follow up- ulcers- on meds. pt vomiting daily Medications Medication SIG (Take, Route, Frequency, Duration) Notes Start Date End Date Status ProAir Digihaler 108 (90 Base) MCG/ACT Inhalation 01/01/2024 Active Amoxicillin-Pot Clavulanate 875-125 MG Oral 01/01/2024 Not-T aking Fluconazole 150 MG Oral 01/01/2024 Not-Taking Sucralfate 1 GM 1 tablet on an empty stomach Orally 4 times a day for 30 days Crush pill in 1 ounce of liquid before taking 10/28/2024 02/25/2025 Active Ondansetron HCl 4 MG Oral 01/01/2024 Not-Taking PreviDent 5000 Booster Plus 1.1 % Dental 01/01/2024 Active Ondansetron 4 MG Oral 01/01/2024 Ac tive valACYclovir HCl 500 MG Oral 01/01/2024 Active Lo Loestrin Fe 1 MG-10 MCG / 10 MCG Oral 01/01/2024 Active PARoxetine HCl ER 37.5 MG Oral 01/01/2024 Active Omeprazole 40 MG Oral 01/01/2024 Ac tive ALPRAZolam 1 MG Oral 01/01/2024 Act naun Vital Signs Temperature 97.9 degrees Fahrenheit 10/28/19 25 Blood pressure systolic 117 mm Hg 10/28/19 25 Blood pressure diastolic 87 mm Hg 01/08/2 025 Heart Rate 80 /min 10/28/2024 Height 60.00 in 10/28/2024 Weight 125 lbs 10/28/2024 BMI 24.41 kg/m2 10/28/2024 Oximetry 98 % 10/28/2024 Height-cm 152.40 cm 10/28/2024 Weight-kg 56.7 kg 10/28/2024 Procedures Procedure Date Ordered Date Performed Result Body Sit e ESOPHAGOGASTRODUODENOSCOPY 10/28/2024 N/A Encounters Encounter Location Date Provider Diagnosis [facility] [address] [place], [place] [id number] 10/28/2024 Conner Saunders S/P gastric bypass Z98.84 ; Nicotine use Z72.0 ; Epigastric pain R10.13 ; Gastro-esophageal reflux disease without esophagitis K21.9 ; History of bariatric surgery Z98.84 ; Nausea and vomiting in adult R11.2 and Chronic gastritis without bleeding, unspecified gastritis type K29.50 Assessments Encounter Date Diagnosis (ICD Code) Assessment Notes Treatment Notes Treatment Clinical Notes Section Notes 10/28/2024 S/P gastric bypass (ICD-10 - Z98.84) 10/28/2024 Nicotine use (ICD-10 - Z72.0) 10/28/2024 Epigastric pain (ICD-10 - R10.13) 10/28/2024 Gastro-esophagea l reflux disease without esophagitis (ICD-10 - K21.9) 10/28/2024 History of bariatric surgery (ICD-10 - Z98.84) 10/28/2024 Nausea and vomiting in adult (ICD-10 - R11.2) 10/28/2024 Chronic gastritis without bleeding, unspecified gastritis type (ICD-10 - K29.50) Plan Of Treatment Medication Medication Name Sig Start Date Stop Date Notes Sucralfate 1 GM 1 tablet on an empty stomach Orally 4 times a day for 30 days 10/28/2024 02/25/2025 Pending Test Test Name Order Date ESOPHAGOGASTRODUODENOSCOPY 10/28/2024 Next Appt Details Follow Up: 6 Weeks, Reason: Procedure Notes * Category Sub-Category Detail Notes Post Operative Plan Education: Emphasized e xercise and activity expectations; goal of 10,000 steps/day & 150 active min/wk. Reiterated importance of drinking at least 64 oz fluid & taking in at least 60-90g protein daily: . Patient understands the tarsha y postop vitamin requirements: MVI, calcium + Vit D (1,500IU), folate 100mg, and any other vitamin supplements as needed based on laboratory monitoring. Reviewed appropriate eating habits and food choices: . Reminded patient that surger y is not a magic fix for weight loss: it is hard work and requires many behavioral changes to be successful. Encouraged patient follow with their PCP regularly, especially regarding medication changes: ; to see a counselor if mental health concerns arise; and continue to follow-up with bariatric human resource advisor. There are no barriers to education today: . DISPOSITION: Return in: 2 months for follo w-up visit. We will plan to do an EGD to assess her symptoms to assess for a suspected marginal ulcer or stenosis that could be causing her symptoms. In the meantime I strongly encouraged her to stop using her VAPE immediately and we will have her take Omeprazole 40 mg BID and open the capsule as well as start Carafate 1g q 6 hours to see if this helps with her symptoms as well. Patient also instructed to h ave repeat labs drawn prior to next postop follow-up visit; orders placed: CBC w/diff, CMP, Vit B1, Folate, Vit B12, iron/TIBC, lipid panel, 25-Hydroxy, HbA1C, zinc. The patient is encouraged to call the clinic with any questions or concerns in the meantime. The patient demonstrates understanding and is amendable to the above outlined plan: . Progress Notes * SAUL COCHRAN ADOB:1990 (34 yo F)Acc No.[id number]:10/28/2024 Patient: MESHA GARNERN A Provider: Mihaela Saunders DO :1990 A ge:34 Y S ex:Female Date:10/28/2024 Address:[address], [facility] Subjective: * Chief Complaints: * P ost gastric bypass follow up- ulcers- on meds. pt vomiting daily * HPI: H istory of Present Illness: Visit: T marianela since surgery: 5 Years 3 Months S urgical Procedure: R oux-en-Y Gastric Bypass D ate of Surgery: 0 07/13/2019 Interval History: Gio pandey patient is a f emale presenting for bariatric postoperative follow-up. Since our last follow- up, she has been having repeated episodes of nausea and vomiting with foods. No foods in particular trigger these episodes but she does admit that she started using a VAPE regularly that contains nicotine. She is not sure if these events coincide with the timing of her nausea and vomiting. Otherwise she has been doing well and has been tolerating liquids with no issues. She denies any numbness or tingling and denies any decrease in urination or dark color to her urine. gio avila been taking bariatric vitamins and gio avila not had bariatric vitamin labs drawn. > INTERVAL ISSUES/CONCERNS: h eartburn/gastric reflux,nausea,abdominal pain,vomiting,food intolerance Ulcer H as patient been admitted to the hospital??No H as patient undergone any post-bariatric surgical operations or interventions? N o P re-surgical Weight: 2 07 lb L ast Visit Weight: 1 35 lb T NORMA'S WEIGHT: 1 25 lb T otal Weight Loss (TBW): 8 2 lb % TBW Lost: 4 5 % > Daily fluid/water intake = 4 0-60 ounces > Protein Intake is a dequate > Physical Activity: W alking less than 10,000 steps/day COMORBIDITY EVALUATION : KIESHA No GERD No Hypertension No Hyperlipidemia No Diabetes No VTE No Is Patient attending any support groups E ncouraged attendance . Does patient take any medications for weight loss? - N o * ROS: G eneral / Constitutional: Chills d enies. F ever d enies. A llergy / Immunology: Blistering skin d enies. H EENT: Difficulty in swallowing d enies. N tim congestion?denies. E ndocrine: Cold intolerance d enies. E xcessive thirst d enies. R espiratory: Chest pain d enies. C ough d enies. ? C ardiovascular: Chest pain d enies. P alpitations d enies. W eakness d enies. G astrointestinal: Abdominal pain d enies. D iarrhea d enies. J aundice d enies. R ectal bleeding d enies. G enitourinary: Blood in the urine d enies. D ifficulty urinating d enies. M usculoskeletal: Limping gait d enies. W eakness d enies. B urning pain in lower legs d enies. P sychiatric: Auditory / visual hallucinations d enies. S ubstance abuse d enies. S uicidal thoughts d enies. R eview of Systems: Fever/Chills: N o. E levated HR: N o. B loating/hiccups: N o. S OB/cough/wheezing: N o. L ower extremity pain or swelling: N o.?Decreased UOP: N o. B owel function N ormal BMs without complaint. ? * Medical History: * Surgical History: L umpectomy of breast ([id number]) 10/21/2007Cholecystectomy 10/21/2010Cesarean section ([id number]) 10/21/2017Esophagogastroduodenoscopy ([id number]) Dr. Conner Saunders; [facility] 04/14/2019Esophagogastroduodenoscopy ([id number]) Dr. Conner Saunders; [facility] 05/06/2020Gastric bypass Dr. Conner Saunders; [facility] 07/13/2019 * Hospitalization/Major Diagno stic Procedure: * Medications: T akingALPRAZolam 1 MG Tablet Oral Omeprazole 40 MG Capsule Delayed Release Oral Ondansetron 4 MG Tablet Disintegrating Oral valACYclovir HCl 500 MG Tablet Oral Lo Loestrin Fe 1 MG-10 MCG / 10 MCG Tablet Oral PARoxetine HCl ER 37.5 MG Tablet Extended Release 24 Hour Oral PreviDent 5000 Booster Plus 1.1 % Paste Dental ProAir Digihaler 108 (90 Base) MCG/ACT Aerosol Powder Breath Activated Inhalation Taking ALPRAZolam 1 MG Tablet Oral Taking Omeprazole 40 MG Capsule Delayed Release Oral Taking Ondansetron 4 MG Tablet Disintegrating Oral Taking valACYclovir HCl 500 MG Tablet Oral Taking Lo Loestrin Fe 1 MG-10 MCG / 10 MCG Tablet Oral Taking PARoxetine HCl ER 37.5 MG Tablet Extended Release 24 Hour Oral Taking PreviDent 5000 Booster Plus 1.1 % Paste Dental Taking ProAir Digihaler 108 (90 Base) MCG/ACT Aerosol Powder Breath Activated Inhalation Doa-JyjgavOkateijjbxa-Dcg Clavulanate 875-125 MG Tablet Oral Fluconazole 150 MG Tablet Oral Ondansetron HCl 4 MG Tablet Oral Medication List reviewed and reconciled with the patientNot-Taking Amoxicillin-Pot Clavulanate 875-125 MG Tablet Oral Not-Taking Fluconazole 150 MG Tablet Oral Not-Taking Ondansetron HCl 4 MG Tablet Oral Medication List reviewed and reconciled with the patient * Allergies: N .K.D.A.no[Allergies Verified] Objective: * Vitals: W t:125, Ht: 60.00, HT: 5'0, BMI:24.41, Oxygen sat %:98, HR:80, BP:117/87, Temp:97.9, Wt-k.7, Ht-cm: 152.40, Body Surface Area: 1.55. * Examination: P hysical Exam: General: W ell-developed a dult in no acute distress Head: A traumatic, normocephalic . Neck: S upple, trachea midline. No cervical lymphadenopathy . Chest: Unlabored breathing without respiratory distress Heart: Normal rate and regular rhythm Abdomen: Soft, non-tender, Bowel sounds normal, No masses, no organomegaly Extremities: Warm and well perfused Psych G ood insight, good judgement, appropriate affect . Integumentary: W arm and dry . R eviewed any recent lab &/or imaging results w ith patient during visit today. Assessment: * Assessment: 1. S /P gastric bypass - Z98.84 (Primary) 2 . N icotine use - Z72.0 ? 3 . E pigastric pain - R10.13 4 . G rafael-esophageal reflux disease without esophagitis - K21.9 5 . H istory of bariatric surgery - Z98.84 & #160; 6 . N ausea and vomiting in adult - R11.2 7 . C hronic gastritis without bleeding, unspecified gastritis type - K29.50 Plan: * Treatment: 2. G rafael-esophageal reflux disease without esophagitis P rocedure: ESOPHAGOGASTRODUODENOSCOPY * Procedures: P ost Operative Plan: Education: E mphasized exercise and activity expectations; goal of 10,000 steps/day & 150 active min/wk. Reiterated importance of drinking at least 64 oz fluid & taking in at least 60-90g protein daily . P atient understands the daily postop vitamin requirements: MVI, calcium + Vit D (1,500IU), folate 100mg, and any other vitamin supplements as needed based on laboratory monitoring. Reviewed appropriate eating habits and food choices . R eminded patient that surgery is not a magic fix for weight loss: it is hard work and requires many behavioral changes to be successful. Encouraged patient follow with their PCP regularly, especially regarding medication changes ; t o see a counselor if mental health concerns arise; and continue to follow-up with bariatric human resource advisor. There are no barriers to education today . DISPOSITION: Lennie chapman in 2 months for follow-up visit. We will plan to do an EGD to assess her symptoms to assess for a suspected marginal ulcer or stenosis that could be causing her symptoms. In the meantime I strongly encouraged her to stop using her VAPE immediately and we will have her take Omeprazole 40 mg BID and open the capsule as well as start Carafate 1g q 6 hours to see if this helps with her symptoms as well. P atient also instructed to have repeat labs drawn prior to next postop follow-up visit; orders placed: CBC w/diff, CMP, Vit B1, Folate, Vit B12, iron/TIBC, lipid panel, 25-Hydroxy, HbA1C, zinc. The patient is encouraged to call the clinic with any questions or concerns in the meantime. The patient demonstrates understanding and is amendable to the above outlined plan . * Procedure Codes: * Follow Up: 6 Weeks * Billing Information: * Visit Code: 13483 Office Visit, Est Pt., Level 3. * Procedure Codes: * APPROVER Sign off status: Completed true * Provider: Mihaela Saunders DO Date: 0 10/28/2024 Generated for Paulette garcia/Derrell/Laloitting on: 0 02/25/2025 04:09 PM CDT History and Physical Notes * HPI (History of Present Illness) Category Sub-Category Detail Notes Category Not es History of Present Illness Visit: Time since surgery:: 5 Years 3 Months Surgical Procedure:: Elizabeth-en-Y Gastric B ypass Date of Surgery:: 07/13/2019 Interval History: The patient is a: female prese nting for bariatric postoperative follow-up. Since our last follow-up, she has been having repeated episodes of nausea and vomiting with foods. No foods in particular trigger these episodes but she does admit that she started using a VAPE regularly that contains nicotine. She is not sure if these events coincide with the timing of her nausea and vomiting. Otherwise she has been doing well and has been tolerating liquids with no issues. She denies any numbness or tingling and denies any decrease in urination or dark color to her urine. they: have been taking bariatri c vitamins and they: have not had bariatric vitami n labs drawn. > INTERVAL ISSUES/CONCERNS:: heartburn/gastric reflux,nausea,abdominal pain,vomiting,food intolerance Ulcer Has patient been [facility] to the [facility]?: No Has patient undergone any po st-bariatric surgical operations or interventions?: No Pre-surgical Weight:: 207 lb Last Visit Weight:: 135 lb TODAY'S WEIGHT:: 125 lb Total Weight Loss (TBW):: 82 lb %TBW Lost:: 45 % > Daily fluid/water intake =: 40-60 ounc es > Protein Intake is: adequate > Physical Activity:: Walkin g less than 10,000 steps/day COMORBIDITY EVALUATION : KIESHA No GERD No Hypertension No Hyperlipidemia No Diabetes No VTE No Is Patient attending any support groups Encour ed attendance: . Does patient take any medications for weight los s? -: No Examination Category Sub-Category Detail Notes Category Not es Physical Exam General: Well-developed: adult in no acute distress Reviewed any recent lab &/or imaging results with patient during visit today. Chest: Unlabored breath ing without respiratory distress Abdomen: Soft, non-tender, Godwin wel sounds normal, No masses, no organomegaly Extremities: Warm and well perfused Heart: Normal rate and regular rhythm Psych Good insight, good j udgement, appropriate affect: . Integumentary: Warm and dry: . Head: Atraumatic, normocephalic: . Neck: Supple, trachea midl ine. No cervical lymphadenopathy: .
--- OUTSIDE RECORDS SUMMARY | 2025-02-25 16:09 | XMS_ITS | Encounter Summary ---
Author Organization [facility] Address [address] [place] [address] Phone Care Team Providers Care Scientific Systems Analyst Name Role Phone Thong Martin MD Primary Care Provider Carlos Gallardo MD Unavailable [phone] Reason for Visit * Reason Comments Medication Refill Encounter Details Date Type Department Care Team (Late st Contact Info) Description 09/02/2023 Refill [facility] - Family Medicine [facility] [address]2 [place] [address] Thong Martin MD #[address] [address] Medication Refill Social History Tobacco Use Types [...] In the last 10 days, have romina frazier been in contact with someone who was confirmed or suspected to have Coronavirus/COVID-19? No / Unsure 08/15/2023 8:39 AM CDT documented as of this encounter Miscellaneous Notes * Telephone Encounter - Allie Fitch RN - 09/02/2023 3:26 PM CST Signed Today (09/02/2023): ALPRAZolam (XANAX) 0.5 MG Tablet Sig: TAKE 1 TABLET BY MOUTH EVERY NIGHT NEEDED FOR ANXIETY Disp: 30 Tablet ? Refills: 0 Signed by: Thong Martin MD L SERVICE WORKER documented in this encounter Plan of Treatment Upcoming Encounters Date Type Department Care Team (Late st Contact Info) Description 04/05/2025 2:45 PM CDT Office Visit [facility] - Family Medicine [facility] [address]2 [place] [address] Thong Martin MD #[address] [address] documented as of this encounter Visit Diagnoses Diagnosis Encounter for long-term (current) use of medications Encounter for long-term (current) use of other medications documented in this encounter Additional Health Concerns Infection Onset Date Last Indicated Resolved Time COVID - 19 09/30/2024 09/30/2024 09/30/2024 1:30 PM CIVIL SERVICE WORKER Respiratory Rule-Out 09/30/2024 09/30/2024 024 1:30 PM CIVIL SERVICE WORKER Assessment Noted Time PHQ-9 Depression Total Score: 0 12/14/19 23 11:02 AM CIVIL SERVICE WORKER documented as of this encounter Care Teams Scientific Systems Analyst Relationship Specialty Start Date End Date Thong Martin MD #[address] [address] PCP - General Family Medicine 09/12/15 Carlos Gallardo MD [address] [place] [address] Consulting Physician Obstetrics & Gynecology 08/13/17 documented as of this encounter
--- OUTSIDE RECORDS SUMMARY | 2025-02-25 16:09 | XMS_ITS | Encounter Summary ---
Author Organization [facility] Address [address] [address] Phone Care Team Providers Care Cloth Mercerizing Supervisor Name Role Phone Thong Martin MD Primary Care Provider [phone] Carlos Gallardo MD Unavailable [phone] Reason for Visit * Reason Comments Medication Refill Encounter Details Date Type Department Care Team (Late st Contact Info) Description 02/19/2025 Refill [facility] - Family Medicine [facility] #2 [place] [address] Thong Martin MD #[address] [address] Medication Refill Social History Tobacco Use Types Packs/Day Years Used Date Smoking Tobacco: Never Smokeless Tobacco: Never Alcohol Use Standard Drinks/Week Comments Yes 0 (1 standard drink = 0.6 oz pur e alcohol) rarely [facility] Utilities Answer Date Recorded In the past 12 months has [employer] electric, gas, oil, or water company threatened [...] often do you attend chur ch or bahai services? Never 07/16/2024 Do you belong to any clubs o r organizations such as hindu groups, unions, fraternal or athletic groups, or [...] Total Score - Questions 1-9 0 09/20 [facility] - [...] any time in the past 12 [facility], were you homeless or living in [...] Visit [facility] - Family Medicine [facility] [address] [place] [address] Thong Martin MD #[address] [address] documented as of this encounter Visit Diagnoses Not on filedocumented in this encounter Additional Health Concerns Assessment Noted Time PHQ-9 Depression Total Score: 0 09/30/20 24 1:07 PM ANIMAL NUTRITIONIST documented as of this encounter Care Teams Cloth Mercerizing Supervisor Relationship Specialty Start Date End Date Thong Martin MD [address] [place] [address] PCP - General Family Medicine 09/12/15 Carlos Gallardo MD [address] [place] [address] Consulting Physician Obstetrics & Gynecology 08/13/17 documented as of this encounter
--- OUTSIDE RECORDS SUMMARY | 2025-02-25 16:09 | XMS_ITS | Encounter Summary ---
Author Organization [facility] Address [address] [place] [address] Phone Care Team Providers Care Roof Service Technician Name Role Phone Thong Martin MD Primary Care Provider [phone] Carlos Gallardo MD Unavailable [phone] Reason for Visit * Reason Comments Medication Refill Encounter Details Date Type Department Care Team (Late st Contact Info) Description 07/18/2024 [facility]ill [facility] #2 [place] [address] Thong Martin MD #[address] [address] Medication Refill Social History Tobacco Use Types Packs/Day Years Used Date Smoking Tobacco: Never Smokeless Tobacco: Never Alcohol Use Standard Drinks/Week Comments Yes 0 (1 standard drink = 0.6 oz pur e alcohol) rarely [facility] Utilities Answer Date Recorded In the past 12 months has [employer], gas, oil, or water company threatened [...] often do you attend chur ch or advent services? Never 07/16/2024 Do you belong to any clubs o r organizations such as anglican groups, unions, fraternal or athletic groups, or [...] Recorded Total Score - Questions 1-9 0 05/21 [employer] of Occupat ional Health - Occupational Stress [...] in a intermediate (including now)? No 02/11/2024 Housing Stability Vital Sign Answer Tomás e Recorded In the last 12 months, was t here a time when you were not able to pay the mortgage or rent on time? No 07/16/2024 In the past 12 months, how m any times have you moved where you were living? 0 07/16/2024 At any time in the past 12 m [facility], were you homeless or living in a intermediate (including now)? No 07/16/2024 Education Answer Date [...] Visit [facility] [address] [place] [address] Thong Martin MD #[address] [address] documented as of this encounter Visit Diagnoses Not on filedocumented in this encounter Additional Health Concerns Infection Onset Date Last Indicated Resolved Time COVID - 19 09/30/2024 09/30/2024 09/30/2024 1:30 PM WORKERS' COMPENSATION COMMISSIONER Respiratory Rule-Out 09/30/2024 09/30/2024 024 1:30 PM WORKERS' COMPENSATION COMMISSIONER Assessment Noted Time PHQ-9 Depression Total Score: 0 06/02/20 24 10:23 AM CDT documented as of this encounter Care Teams Roof Service Technician Relationship Specialty Start Date End Date Thong Martin MD #2 [facility] [address] [place] [address] PCP - General Family Medicine 09/12/15 Carlos Gallardo MD 4 [facility] [address] [place] [address] Consulting Physician Obstetrics & Gynecology 08/13/17 documented as of this encounter
--- OUTSIDE RECORDS SUMMARY | 2025-02-25 16:09 | XMS_ITS | Encounter Summary ---
Author Organization [facility] Address [address] [place] [address] Phone Care Team Providers Care Sql Consultant Name Role Phone Thong Martin MD Primary Care Provider Carlos Gallardo MD Unavailable [phone] Reason for Visit * Reason Comments Medication Refill Encounter Details Date Type Department Care Team (Late st Contact Info) Description 04/12/2024 Refill [facility] #2 [place] [address] Thong Martin MD #[address] [address] Medication Refill Social History Tobacco Use Types Packs/Day Years Used Date Smoking Tobacco: Never Smokeless Tobacco: Never Alcohol Use Standard Drinks/Week Comments Yes 0 (1 standard drink = 0.6 oz pur e alcohol) rarely [facility] Utilities Answer Date Recorded In the past 12 months has [employer], gas, oil, or water company threatened [...] often do you attend chur ch or scientology services? Never 02/11/2024 Do you belong to any clubs o r organizations such as jewish groups, unions, fraternal or athletic groups, or [...] place to sleep or slept in a [facility] (including now)? No 02/11/2024 Education Answer Date [...] Telephone Encounter - Allie Fitch RN - 04/13/2024 11:20 AM CDT PDMP 03/09/24 - 10 days Medication failed the protocol, provider to review and approve the medication order if appropriate. Requested Prescriptions Pending Prescriptions Disp Refills ALPRAZolam (XANAX) 1 MG Tablet [Pharmacy Med Name: ALPRAZOLAM 1MG TABLETS] 30 Tablet 0 Sig: TAKE 1 TABLET BY MOUTH THREE TIMES DAILY NEEDED FOR SLEEP Not Delegated - Benzodiazepines Protocol Failed - 04/12/2024 8:51 PM Failed - This refill cannot be delegated Passed - Visit with relevant provider in past 12 months or upcoming 90 days Recent Visits Date Type Provider Dept 03/24/24 Office Visit Sophy Landon DO [facility] 02/11/24 Office Visit Thong Martin MD [facility] 08/15/23 Office Visit Candy Prabhakar [facility]N, [facility] [place] 06/26/23 Office Visit Shailesh Brennan APRN, [facility] [place] 06/13/23 Office Visit [facility] [place] Showing recent visits within past 365 days and meeting all other requirements Future Appointments Date Type Provider Dept 05/05/24 Appointment Sophy Landon DO [facility] Showing future appointments within next 90 days and meeting all other requirements documented in this encounter Plan of Treatment Upcoming Encounters Date Type Department Care Team (Late st Contact Info) Description 04/05/2025 2:45 PM CDT Office Visit [facility] - Family Medicine [facility] #2 [place] [address] Thong Martin MD #[address] [address] documented as of this encounter Visit Diagnoses Diagnosis Encounter for long-term (current) use of medications Encounter for long-term (current) use of other medications documented in this encounter Additional Health Concerns Infection Onset Date Last Indicated Resolved Time COVID - 19 09/30/2024 09/30/2024 09/30/2024 1:30 PM PARAPROFESSIONAL INTERPRETER Respiratory Rule-Out 09/30/2024 09/30/2024 024 1:30 PM PARAPROFESSIONAL INTERPRETER Assessment Noted Time PHQ-9 Depression Total Score: 0 02/11/20 24 1:26 PM CDT documented as of this encounter Care Teams Sql Consultant Relationship Specialty Start Date End Date Thong Martin MD #[address] [address] PCP - General Family Medicine 09/12/15 Cralos Gallardo MD [address] [facility] [address] [place] [address] [place] [address] Consulting Physician Obstetrics & Gynecology 08/13/17 documented as of this encounter
--- OUTSIDE RECORDS SUMMARY | 2025-02-25 16:09 | XMS_ITS | Clinical Summary ---
Author Organization [facility] Address [address] [place] [address] Phone Care Team Providers Care Auto Body Repairer Name Role Phone Thong Martin MD Primary Care Provider [phone] Carlos Gallardo MD Unavailable [phone] Allergies Active Allergy Reactions Criticality Noted Date Comments Paroxetine Hcl Nausea 05/03/2020 07/20/21-no longer an issue-currently taking Medications albuterol 108 (90 Base) MCG/ACT Aerosol SolutionIndicatio ns:Mild intermittent reactive airway disease with acute exacerbation take 2 Puffs by inhalation every 4 hours as needed for Wheezing or Cough. 18 g 1 3 Active omeprazole (PriLOSEC) 40 MG CAPSULE DELAYED RELEASE Take 40 mg by mouth daily. 4 Active Lo Loestrin Fe 1 MG-10 MCG / 10 MCG Tablet 4 Active DULoxetine (Cymbalta) [address] Particles Take 1 Capsule by mouth daily. 30 Capsule 3 4 Active albuterol 108 (90 Base) MCG/ACT Aerosol Solution take 1-2 Puffs by inhalation every 4 hours as needed for Cough. 18 g 4 Active ondansetron (ZOFRAN) 4 MG Tablet TAKE 1 TABLET BY MOUTH EVERY 8 HOURS NEEDED FOR NAUSEA 30 Tablet 5 Active promethazine (PHENERGAN) 12.5 MG TabletIndications :Post-traumatic headache, not intractable, unspecified chronicity pattern TAKE 1 TABLET BY MOUTH FOUR TIMES DAILY NEEDED FOR NAUSEA(SECOND LINE) FOR UP TO 10 DAYS 40 Tablet 5 Active PARoxetine CR (PAXIL-CR) 37.5 MG TABLET SR 24 HR TAKE 1 TABLET BY MOUTH DAILY 90 Tablet 1 5 Active ALPRAZolam (XANAX) 1 MG TabletIndications :Encounter for long-term (current) use of medications TAKE 1 TABLET BY MOUTH THREE TIMES DAILY NEEDED FOR SLEEP 30 Tablet 5 Active Active Problems Problem Noted Date Diagnosed Date Anxiety 06/06/2017 Overweight (BMI 25.0-29.9) 12/04/2016 Depression 02/01/2016 Irritable bowel syndrome 07/12/2015 Overview (08/15/2023): IBS Chronic rhinitis Overview (09/07/2015): PNAR Acquired deviated nasal septum Nasal turbinate hypertrophy Tonsillar hypertrophy 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 Resolved Problems Problem Noted Date Diagnosed Date Resolved Date Bronchitis 06/08/2016 11/30/2020 Earache, referred 11/30/2020 Encounters Date Type Department Care Team Description 02/25/2025 Refill [facility]2 [place] [address] Thong Martin MD Medication Refill 02/19/2025 [facility] [place] [address] Thong Martin MD Medication Refill 01/26/2025 [facility] [place] [address] Thong Martin MD Medication Refill 01/15/2025 [facility] [place] [address] Thong Martin MD Medication Refill 12/25/2024 Refill [facility] - Family [facility] #[address] [place] [address] Thong Martin MD Medication Refill from Last 3 Months Immunizations Immunization Administration Dates Next Due Influenza Vaccine 08/18/2014 Influenza Vaccine, Quadrivalent, PF 08/04/2018 TDAP Vaccine 02/16/2014 Family History Medical History Relation Name Comments Ovarian Cancer Mother Relation Name Status Comments Father Alive Mother Alive Social History Tobacco Use Types Packs/Day Years Used Date Smoking Tobacco: Never Smokeless Tobacco: Never Tobacco Cessation:Counseling Given: No Alcohol Use Standard Drinks/Week Comments Yes 0 (1 standard drink = 0.6 oz pur e alcohol) rarely [facility] Utilities Answer Date Recorded In the past 12 months has e [employer], gas, oil, or water [employer] threatened to shut off services in your [...] often do you attend chur ch or caodaism services? Never 07/16/2024 Do you belong to any clubs o r organizations such as yazidi groups, unions, fraternal or athletic groups, or [...] Total Score - Questions 1-9 0 09/20 [facility] of Occupat ional [facility] - Occupational Stress Questionnaire Answer Date Recorded [...] place to sleep or slept in a nursing home (including now)? No 02/11/2024 Housing Stability Vital Sign Answer Tomás e Recorded In the last 12 months, was t here a time when you were not able to pay the mortgage or rent on time? No 07/16/2024 In the past 12 months, how m any times have you moved where you were living? 0 07/16/2024 At any time in the past 12 m [facility], were you homeless or living in a nursing home (including now)? No 07/16/2024 Education Answer Date [...] Orientation Straight 07/03/2023 4: 54 PM CDT Last Filed Vital Signs Vital Sign Reading Time Taken Comments Blood Pressure 122/70 09/30/2024 1:04 PM FAST FOOD SUPERVISOR Pulse 83 09/30/2024 1:04 PM FAST FOOD SUPERVISOR Temperature 36.7 C (98.1 F) 09/30/2024 1:04 PM FAST FOOD SUPERVISOR Respiratory Rate 18 09/30/2024 1:04 PM FAST FOOD SUPERVISOR Oxygen Saturation 99% 09/30/2024 1:04 PM FAST FOOD SUPERVISOR Inhaled Oxygen Concentration - - Weight 57.6 kg (127 lb) 09/30/2024 1:04 PM FAST FOOD SUPERVISOR Height 154.9 cm (5' 1 ) 09/30/2024 1:04 PM FAST FOOD SUPERVISOR Body Mass Index 24 09/30/2024 1:04 PM FAST FOOD SUPERVISOR Plan of Treatment Upcoming Encounters Date Type Department Care Team (Late st Contact Info) Description 04/05/2025 2:45 PM CDT Office Visit [facility] - Family Medicine [facility] [address] [place] [address] Thong Martin MD #[address] [address] Health Maintenance Due Date Last Done Comments Hepatitis C Virus (HCV) Screening 1992 Hepatitis B Immunization (1 of 3 - 19+ 3-dose series) 01/11/2011 HPV/Cotest 01/11/2022 Td Immunization Every 10 Yea rs (Adults With 1 Tdap) 02/17/2024 02/16/2014 SARS-COV-2 Immunization ( season) 2024 Cervical Cancer Screening (CCS) 03/01/2025 Pap Smear 03/01/2025 03/01/2022, 09/09/2016 Influenza Immunization (Seas on Ended) 2025 08/04/2018, 08/18/2014 Respiratory Syncytial Virus (RSV) Immunization (Adult) (1 - 1-dose 75+ series) 01/11/2067 Human Papillomavirus (HPV) Immunization Aged Out No longer eligible b ased on patient's age to complete this topic Meningococcal Immunization (ACWY) Aged Out No longer eligible b ased on patient's age to complete this topic Pneumococcal Immunization Combined Aged Out No longer eligible b ased on patient's age to complete this topic Rotavirus Immunization Aged Out No lo nger eligible based on patient's age to complete this topic Procedures Procedure Name Priority Date/Time Associated Diagnosis Comments PATHOLOGY CYTOLOGY ASSEMBLER FITTER Routine 09/09/2016 from Last 3 Months or Most Recently Relevant to Health Maintenance Results * PATHOLOGY CYTOLOGY ASSEMBLER FITTER (09/09/2016) Specimen of unknown material (specimen) us Not On File Provider PATHOLOGY/CYTOLOGY ORDERABL ES Final Result from Last 3 Months or Most Recently Relevant to Health Maintenance Insurance [facility] Care Teams Auto Body Repairer Relationship Specialty Start Date End Date Thong Martin MD #2 [facility] [address] [place] [address] PCP - General Family Medicine 09/12/15 Carlos Gallardo MD [address] [facility] [address] [address] [place] [address] Consulting Physician Obstetrics & Gynecology 08/13/17
--- OUTSIDE RECORDS SUMMARY | 2025-02-25 16:09 | XMS_ITS | Encounter Summary ---
Author Organization [facility] Address [address] [place] [address] Phone Care Team Providers Care Food Vendor Name Role Phone Thong Martin MD Primary Care Provider Carlos Gallardo MD Unavailable [phone] Reason for Visit * Reason Comments Medication Refill Encounter Details Date Type Department Care Team (Late st Contact Info) Description 09/04/2023 Refill [facility] #2 [place] [address] Thong Martin MD #[address] [address] Medication Refill Social History Tobacco Use Types [...] Telephone Encounter - Shirin Burnham RN - 09/05/2023 10:24 AM MANAGER FLIGHT Per below note, pharmacy is calling stating patient says she requested the wrong dosage. She wants 1 mg tabs sent in; not the previously sent 0.5 mgs. Do you want to send 1 mg? Medication failed the protocol, provider to review and approve the medication order if appropriate. Requested Prescriptions Pending Prescriptions Disp Refills ALPRAZolam (XANAX) 1 MG Tablet [Pharmacy Med Name: ALPRAZOLAM 1MG TABLETS] 30 Tablet Sig: TAKE 1 TABLET BY MOUTH THREE TIMES DAILY NEEDED FOR SLEEP Not Delegated - Benzodiazepines Protocol Failed - 09/04/2023 12:29 PM Failed - This refill cannot be delegated Passed - Visit with relevant provider in past 12 months or upcoming 90 days Recent Visits Date Type Provider Dept 08/15/23 Office Visit Candy Prabhakar APRN, [facility] 06/26/23 Office Visit Shailesh Brennan APRN, CNP [facility] 06/13/23 Office Visit Thong Martin MD [facility] 12/14/22 Office Visit Thong Martin MD [facility] 11/30/22 Office [facility] Showing recent visits within past 365 days and meeting all other requirements Future Appointments No visits were found meeting these conditions. Showing future appointments within next 90 days and meeting all other requirements GER FLIGHT * Telephone Encounter - Kaila Roland MA - 09/04/2023 12:31 PM MANAGER FLIGHT Message left on medication refill voice mail: Heather calling in regards to script 09/02/23 Alprazolam 0.5 mg tabs Per pharmacy stated patient realized she requested the wrong dose . Patient wanted Alprazolam 1 mg tabs, pdmp 08/13/23 10 day supply Per pharmacy patient did not take the Alprazolam 0.5 mg tabs . GER FLIGHT documented in this encounter Plan of Treatment Upcoming Encounters Date Type Department Care Team (Late st Contact Info) Description 04/05/2025 2:45 PM CDT Office Visit [facility] - Family Medicine [facility] #[address] [place] [address] Thong Martin MD #[address] [address] documented as of this encounter Visit Diagnoses Diagnosis Encounter for long-term (current) use of medications Encounter for long-term (current) use of other medications documented in this encounter Additional Health Concerns Infection Onset Date Last Indicated Resolved Time COVID - 19 09/30/2024 09/30/2024 09/30/2024 1:30 PM MANAGER FLIGHT Respiratory Rule-Out 09/30/2024 09/30/2024 024 1:30 PM MANAGER FLIGHT Assessment Noted Time PHQ-9 Depression Total Score: 0 12/14/19 23 11:02 AM MANAGER FLIGHT documented as of this encounter Care Teams Food Vendor Relationship Specialty Start Date End Date Thong Martin MD #[address] [address] PCP - General Family Medicine 09/12/15 Carlos Gallardo MD [address] [place] [address] [facility] [address] [place] [address] Consulting Physician Obstetrics & Gynecology 08/13/17 documented as of this encounter
--- OUTSIDE RECORDS SUMMARY | 2025-02-25 16:09 | XMS_ITS | Encounter Summary ---
Author Organization [facility] Address [address] [place] [address] Phone Care Team Providers Care Net Developer Contract Name Role Phone Thong Martin MD Primary Care Provider Carlos Gallardo MD Unavailable [phone] Reason for Visit * Reason Comments Medication Refill Encounter Details Date Type Department Care Team (Late st Contact Info) Description 02/03/2024 Refill [facility] - [place] #2 [place] [address] Candy Prabhakar APRN, PHARMACIST CRITICAL CARE #[address] [id number] Medication Refill Social History Tobacco Use Types [...] Telephone Encounter - Allie Fitch RN - 02/04/2024 11:24 AM CDT Medication failed the protocol, provider to review and approve the medication order if appropriate. Requested Prescriptions Pending Prescriptions Disp Refills PARoxetine CR (PAXIL-CR) 37.5 MG TABLET SR 24 HR [Pharmacy Med Name: PARoxetine HCl ER 37.5 MG OralTablet Extended Release 24 Hour] 90 Tablet 1 Sig: Take 1 tablet by mouth once daily SSRI (6 Month Refill Only) Protocol Failed - 02/03/2024 6:10 PM Failed - Has an encounter in the past 6 months with a depression, anxiety, adjustment disorder, OCD, or PTSD visit diagnosis Passed - No test in the past 12 months or most recent test was negative Passed - No active on record Passed - Visit with relevant provider in past 6 months or upcoming 90 days Recent Visits Date Type Provider Dept 08/15/23 Office Visit Candy Prabhakar APRN, PHARMACIST CRITICAL CARE [facility] Showing recent visits within past 182 days and meeting all other requirements Future Appointments No visits were found meeting these conditions. Showing future appointments within next 90 days and meeting all other requirements Passed - Patient has established therapy with SSRI for at least 6 months documented in this encounter Plan of Treatment Upcoming Encounters Date Type Department Care Team (Late st Contact Info) Description 04/05/2025 2:45 PM CDT Office Visit [facility] - Family Medicine - [place] [address] [place] [address] Thong Martin MD #[address] [address] documented as of this encounter Visit Diagnoses Not on filedocumented in this encounter Additional Health Concerns Infection Onset Date Last Indicated Resolved Time COVID - 19 09/30/2024 09/30/2024 09/30/2024 1:30 PM SOFTWARE RELIABILITY ENGINEER Respiratory Rule-Out 09/30/2024 09/30/2024 024 1:30 PM SOFTWARE RELIABILITY ENGINEER Assessment Noted Time PHQ-9 Depression Total Score: 0 12/14/19 23 11:02 AM SOFTWARE RELIABILITY ENGINEER documented as of this encounter Care Teams Net Developer Contract Relationship Specialty Start Date End Date Thong Martin MD #2 [facility] [address] [place] [address] PCP - General Family Medicine 09/12/15 Carlos Gallardo MD 4 [facility] [address] [place] [address] Consulting Physician Obstetrics & Gynecology 08/13/17 documented as of this encounter
--- OUTSIDE RECORDS SUMMARY | 2025-02-25 16:09 | XMS_ITS | Encounter Summary ---
Author Organization [facility] Address [address] [place] [address] Phone Care Team Providers Care Nurse Name Role Phone Thong Martin MD Primary Care Provider Carlos Gallardo MD Unavailable [phone] Reason for Visit * Reason Comments Medication Refill Encounter Details Date Type Department Care Team (Late st Contact Info) Description 12/21/2023 Refill [facility] #2 [place] [address] Thong Martin MD #[address] [address] Medication Refill Social History Tobacco Use Types [...] Telephone Encounter - Allie Fitch RN - 12/23/2023 8:52 AM CST PDMP 11/20/23 Medication failed the protocol, provider to review and approve the medication order if appropriate. Requested Prescriptions Pending Prescriptions Disp Refills ALPRAZolam (XANAX) 1 MG Tablet [Pharmacy Med Name: ALPRAZOLAM 1MG TABLETS] 30 Tablet 0 Sig: TAKE 1 TABLET BY MOUTH THREE TIMES DAILY NEEDED FOR SLEEP Not Delegated - Benzodiazepines Protocol Failed - 12/21/2023 5:07 AM Failed - This refill cannot be delegated Passed - Visit with relevant provider in past 12 months or upcoming 90 days Recent Visits Date Type Provider Dept 08/15/23 Office Visit Candy Prabhakar APRN, LIME KILN WORKER HELPER [facility] 06/26/23 Office Visit Shailesh Brennan APRN, LIME KILN WORKER HELPER [facility] 06/13/23 Office Visit [facility] Showing recent visits within past 365 days and meeting all other requirements Future Appointments Date Type Provider Dept 01/07/24 Appointment Thong Martin MD [facility] [place] Showing future appointments within next 90 days and meeting all other requirements INERY DEPARTMENT MANAGER documented in this encounter Plan of Treatment Upcoming Encounters Date Type Department Care Team (Late st Contact Info) Description 04/05/2025 2:45 PM CDT Office Visit [facility] - Family Medicine - [place] #[address] [place] [address] Thong Martin MD #[address] [address] documented as of this encounter Visit Diagnoses Diagnosis Encounter for long-term (current) use of medications Encounter for long-term (current) use of other medications documented in this encounter Additional Health Concerns Infection Onset Date Last Indicated Resolved Time COVID - 19 09/30/2024 09/30/2024 09/30/2024 1:30 PM MILLINERY DEPARTMENT MANAGER Respiratory Rule-Out 09/30/2024 09/30/2024 024 1:30 PM MILLINERY DEPARTMENT MANAGER Assessment Noted Time PHQ-9 Depression Total Score: 0 12/14/19 23 11:02 AM MILLINERY DEPARTMENT MANAGER documented as of this encounter Care Teams Nurse Relationship Specialty Start Date End Date Thong Martin MD #2 [facility] [address] [place] [address] PCP - General Family Medicine 09/12/15 Carlos Gallardo MD [address] [facility] [address] [place] [address] [place] [address] Consulting Physician Obstetrics & Gynecology 08/13/17 documented as of this encounter
--- OUTSIDE RECORDS SUMMARY | 2025-02-25 16:09 | XMS_ITS | Encounter Summary ---
Author Organization [facility] Address [address] [place] [address] Phone Care Team Providers Care Track Fitter Name Role Phone Thong Martin MD Primary Care Provider Carlos Gallardo MD Unavailable [phone] Reason for Visit * Reason Comments Medication Refill Encounter Details Date Type Department Care Team (Late st Contact Info) Description 11/19/2023 Refill [facility] [address] [place] [address] Thong Martin MD [address] [address] Medication Refill Social History Tobacco Use Types [...] Telephone Encounter - Allie Fitch RN - 11/20/2023 8:[address] Martin, is patient on both the 0.5 mg & 1 mg tabs? They are both on her medication list. I do not see any recent refills on PDMP for the 0.5 mg tabs. The 1 mg tab was last filled 10/11/23. ARCH PROFESSOR documented in this encounter Plan of Treatment Upcoming Encounters Date Type Department Care Team (Late st Contact Info) Description 04/05/2025 2:45 PM CDT Office Visit [facility] - [facility] - [place] [address] [place] [address] Thong Martin MD #[address] [facility] [place] [address] documented as of this encounter Visit Diagnoses Diagnosis Primary insomnia Persistent disorder of initiating or maintaining sleep documented in this encounter Additional Health Concerns Infection Onset Date Last Indicated Resolved Time COVID - 19 09/30/2024 09/30/2024 09/30/2024 1:30 PM RESEARCH PROFESSOR Respiratory Rule-Out 09/30/2024 09/30/2024 024 1:30 PM RESEARCH PROFESSOR Assessment Noted Time PHQ-9 Depression Total Score: 0 12/14/19 23 11:02 AM RESEARCH PROFESSOR documented as of this encounter Care Teams Track Fitter Relationship Specialty Start Date End Date Thong Martin MD [address] [facility] [place] [address] PCP - General Family Medicine 09/12/15 Carlos Gallardo MD [address] [place] [address] [address] [place] [address] Consulting Physician Obstetrics & Gynecology 08/13/17 documented as of this encounter
--- OUTSIDE RECORDS SUMMARY | 2025-02-25 16:10 | XMS_ITS | Continuity of Care Document ---
Author Organization [facility] Address [address] [place] [address] Phone Care Team Providers Care Splicing Machine Operator Automatic Name Role Phone Administrative, Provider Unavailable Unavail able Procedures Procedure Date Medical testimony Rende Scheduling Rescheduling Medical Testimon y Rende Work/Medical Disability Exam RJR 2016 ANITA No Show Rende Advance Directives Directive Yes / No Effective Date File Name No Information Encounters Encounter Description Practice Location Reason(s) For Visit Diagnoses Date Provider Providers Copied on Encounter [facility], [address] [place] [address], [address] [place] [address], tel:[phone] [employer] No Information 7 Administrative Provider. [address] [place] [address], [id number], [place]. tel:[phone] Referring Provider: Deacon Nova, [address] [place] [address], [address] . tel:[phone] [facility], [address] [place] [address], [id number], [place] tel:[phone] [facility] No Information 7 Administrative Provider. [address] [place] [address], [id number], [place]. tel:[phone] Referring Provider: Deacon Nova, [address], [place], [address] . tel:[phone] [facility], [address] [place] [address], [place], [place], [id number], tel:[phone] [facility] Sprain of ligaments of cervical spine, initial encounter Administrative Provider. [address] [place] [address], [place] [address], [place], [place], [id number], . tel:[phone] Referring Provider: Deacon Nova, [address] [place] [address], [place], [address] . tel:[phone] [facility], [address] [place] [address], [place], [place], [id number], tel:[phone] [facility] No Information Administrative Provider. [address] [place] [address], [place], [place], [id number], . tel:[phone] Referring Provider: Deacon Nova, [address] [place] [address], [place], [address] . tel:[phone] Family History Family Member Type Diagnosis Age At Onset No Information Payers Payer name Insurance type Covered democrat ID Authoriza tion(s) No Information Social History Type Description Quantity Date Captured Comments Sex Female Smoking Status No Information Chief Complaint And Reason For Visit No Information Reason For Referral Reason For Referral No Information History Of Present Illness Encounter Date Complaint History Of Prese nt Illness No Information Functional Status Date Functional Assessmen t No Information Instructions Date Instruction Additional Infor mation No Information Assessments Type Assessment Date No Information Patient Care Teams Name Effective Dates (start - stop) Status Members No Information
--- OUTSIDE RECORDS SUMMARY | 2025-02-25 16:10 | XMS_ITS | Clinical Summary ---
Author Organization [facility] Address [address] [place] [address] Care Team Providers Care Property Accountant Name Role Phone Thong Martin MD Primary Care Provider [phone] Allergies Active Allergy Reactions Criticality Noted Date Comments Paroxetine Hcl Nausea only Low 05/03/2020 07/20/21-no longer an issue-currently taking Medications glycopyrrolate (ROBINUL) 2 mg tablet 2 mg. 0 0 5 Active Additional Information Patient not taking.Reported on 07/22/2022 ondansetron (ZOFRAN, HYDROCHLORIDE,) 4 mg tablet take 2 tablet by oral route every 8 hours for 2 days 0 0 5 Active Additional Information Patient not taking.Reported on 07/22/2022 norethindrone-e .estradiol-iron (LO LOESTRIN FE) 1 mg-10 mcg (24)/10 mcg (2) tablet TAKE 1 TABLET BY ORAL ROUTE EVERY DAY 3 packet 2 7 Active ALPRAZolam (XANAX) 0.5 mg tablet Take 1 tablet (0.5 mg total) by mouth nightly as needed 4 Active omeprazole (PriLOSEC) 40 mg capsule Take 1 capsule (40 mg total) by mouth daily 2 Active PARoxetine CR (PAXIL-CR) 37.5 mg 24 hr tablet Take 1 tablet (37.5 mg total) by mouth daily 5 Active norethindrone-e .estradioL-iron (Lo Loestrin Fe) 1 mg-10 mcg (24)/10 mcg (2) tablet per tablet Take 1 tablet by mouth daily 3 tablet 4 5 Active Active Problems Problem Noted Date Diagnosed Date Acquired deviated nasal septum 01/04/2025 Chronic rhinitis 01/04/2025 Overview (01/04/2025): PNAR Nasal turbinate hypertrophy 01/04/2025 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 Primary snoring 01/04/2025 Temporomandibular tcves-uyap-nfnvgbkiolc syndrom e 01/04/2025 Tonsillar hypertrophy 01/04/2025 Morbid obesity with body mass index of 40.0-49.9 03/30/2019 Anxiety 06/06/2017 Irritable bowel syndrome 07/12/2015 Overview (01/25/2017): IBS Knee pain 03/06/2014 Overview (01/25/2017): Knee pain Depression 07/07/2013 Overview (01/25/2017): Depression Lump or mass in breast 01/13/2010 Encounters Date Type Department Care Team Description 01/11/[address] [address] Mahsa Marrero DO 01/04/2025 2:30 PM CDT Office Visit [facility] [address] [place] [address] Mahsa Marrero DO Encounter to establish care (Primary Dx); Encounter for surveillance of contraceptive pills from Last 3 Months Immunizations Immunization Administration Dates Next Due Influenza, Quadrivalent, Spl it, Preservative Free, Intramuscular 08/04/2018 Influenza, Trivalent, Preservative Free, Intramu scular 08/18/2014 Tdap 02/16/2014 Surgical History Surgery Date Site/Laterality Comments OTHER SURGICAL HISTORY 2006 Right Fibrocystic disease: Fibrocyst removed from breast CHOLECYSTECTOMY 2010 Cholecystectomy ANTERIOR CRUCIATE LIGAMENT REPAIR ACL reconstruction YARIEL-EN-Y PROCEDURE Medical History Medical History Date Comments Hx Other Medical gallbladder Hx Other Medical acl reconstruct ion Hx Other Medical breast cyst rem oval Hx Other Medical Fibrocystic dis ease Factor 5 Leiden mutation, heterozygous Depressed Family History Medical History Relation Name Comments Colon cancer Maternal Grandfather Cancer, colon; Breast cancer Maternal Grandmother Cancer , breast; Ovarian cancer Mother Ovarian cance r; Thyroid disease Mother Thyroid dise ase; Cancer Other 1 Family history of Cancer; Diabetes Other 2 Family history of Diabetes mellitus; Relation Name Status Comments Maternal Grandfather Maternal Grandmother Mother Other 1 Other 2 Social History Tobacco Use Types Packs/Day Years Used Date Smoking Tobacco: Every Day Vaping Tobacco Cessation:Ready to Q uit: Not Asked; Counseling Given: Not Answered Alcohol Use Standard Drinks/Week Comments No 0 (1 standard drink = 0.6 oz pur e alcohol) Comments No Sex and Gender Information Value Date Recorded Sex Assigned at Not on file Legal Sex Female 8:43 PM DELICATESSEN CLERK Gender Identity Not on file Sexual Orientation Not on file Occupation Industry Job Start Date Job End Date Not on file Not on file Not on file Not on file Obstetrics History Para Term AB IAB SAB Ectopic Multiple Livin g Live Births 4 1 1 0 3 0 3 0 0 1 1 Date Outcome GA Total Labor Labor//3rd Weight Sex Type Anes PTL Shelbi A1 A5 Name Clin SAB SAB SAB 2017 Term 3.09 kg (6 lb 13 oz) C-Sec tion Living Last Filed Vital Signs Vital Sign Reading Time Taken Comments Blood Pressure 114/60 01/04/2025 2:19 PM CDT Pulse 67 01/15/2024 9:42 AM CDT Temperature 36.4 C (97.6 F) 01/15/2024 9:42 AM CDT Respiratory Rate 18 01/15/2024 9:42 AM CDT Oxygen Saturation 97% 01/15/2024 9:42 AM CDT Inhaled Oxygen Concentration - - Weight 52.2 kg (115 lb) 01/04/2025 2:19 PM CDT Height 154.9 cm (5' 1 ) 01/04/2025 2:19 PM CDT Body Mass Index 21.73 01/04/2025 2:19 PM CDT Plan of Treatment Health Maintenance Due Date Last Done Comments Depression Screening 1992 Hepatitis C Screening 1992 Varicella Vaccines (1 of 2 - 13+ 2-dose series) 01/11/2005 Hepatitis B Screening 01/11/2010 Regular Well Visit/Exam 18-64 01/11/2010 Pneumococcal vaccine <65 (1 of 2 - PCV) 01/11/2011 Cervical Cancer Screening 09/09/2017 09/09/2016 DTaP/Tdap/Td Vaccine (2 - Td or Tdap) 02/17/2024 02/16/2014 Influenza Vaccine (Season Ended) 2025 08/04/2018, 08/18/2014 HPV Vaccines Aged Out No longer eligi ble based on patient's age to complete this topic Procedures Procedure Name Priority Date/Time Associated Diagnosis Comments GENITAL FLUID PAP SMEAR, THIN PREP WITH HPV EVALUATION Routine 09/09/2016 6:00 PM DELICATESSEN CLERK from Last 3 Months or Most Recently Relevant to Health Maintenance Results * Genital fluid pap smear, thin prep with HPV evaluation (09/09/2016 6:00 PM DELICATESSEN CLERK) Clinical information SEE NOTE CDR HISTORICAL RESULTS Comment:Information not prov ided LMP SEE NOTE CDR HISTORICAL RESULTS Comment:INFORMATION NOT PROV IDED Previous Pap SEE NOTE CDR HISTORICAL RESULTS Comment:INFORMATION NOT PROV IDED Previous biopsy SEE NOTE CDR HISTORICAL RESULTS Comment:INFORMATION NOT PROV IDED Referral specimen source SEE NOTE CDR HISTORICAL RESULTS Comment:Cervix, Endocervix Statement of adequacy SEE NOTE CDR HISTORICAL RESULTS Comment: Satisfactory for evaluation. Endocervical/transformation zone component present. Age and/or menstrual status not provided Referral specimen, interp SEE NOTE CDR HISTORICAL RESULTS Comment:Negative for intraep ithelial lesion or malignancy. Variable comment SEE NOTE CDR HISTORICAL RESULTS Comment: This Pap test has been evaluated with computer assisted technology. Genital 09/09/2016 6:00 PM DELICATESSEN CLERK Narrative CDR HISTORICAL RESULTS - 09/17/2016 6:00 AM DELICATESSEN CLERK Test performed at [facility] [address] Director: SHIRLEY BOUCHER MD us Historical Provider LAB CYTOLOGY ORDERABLES F inal Result CDR HISTORICAL RESULTS from Last 3 Months or Most Recently Relevant to Health Maintenance Insurance CIGNA CIGNA AETNA SIG [id number] Care Teams Property Accountant Relationship Specialty Start Date End Date Thong Martin MD [address] [place] [id number] PCP - General 07/12/15
--- OUTSIDE RECORDS SUMMARY | 2025-02-25 16:10 | XMS_ITS | Encounter Summary ---
Author Organization [facility] Address [address] [place] [address] Phone Care Team Providers Care Linen Checker Name Role Phone Thong Martin MD Primary Care Provider Carlos Gallardo MD Unavailable [phone] Reason for Visit * Reason Comments Medication Refill Encounter Details Date Type Department Care Team (Late st Contact Info) Description 06/06/2023 Refill [facility] - [place] [address] [place] [address] Candy Prabhakar APRN, MECHANICAL EQUIPMENT SALES ENGINEER [address] [id number] Medication Refill Social History Tobacco Use Types [...] Telephone Encounter - Alta Nielsen RMA - 06/06/2023 3:18 PM CDT scheduled * Telephone Encounter - Allie Fitch RN - 06/06/2023 2:25 PM CDT Needs OV with Dr Martin * Telephone Encounter - Allie Fitch RN - 06/06/2023 1:59 PM CDT PDMP 05/08/23 Medication failed the protocol, provider to review and approve the medication order if appropriate. Requested Prescriptions Pending Prescriptions Disp Refills ALPRAZolam (XANAX) 0.5 MG Tablet [Pharmacy Med Name: ALPRAZOLAM 0.5MG TABLETS] 30 Tablet 0 Sig: TAKE 1 TABLET BY MOUTH EVERY NIGHT NEEDED FOR ANXIETY Not Delegated - Benzodiazepines Protocol Failed - 06/06/2023 6:49 AM Failed - This refill cannot be delegated Passed - Visit with relevant provider in past 12 months or upcoming 90 days Recent Visits Date Type Provider Dept 12/14/22 Office Visit Thong Martin MD [facility] 11/30/22 Office Visit Shailesh Brennan APRN, CNP [facility] 06/28/22 Office Visit Thong Martin MD [facility] Showing recent visits within past 365 days and meeting all other requirements Future Appointments No visits were found meeting these conditions. Showing future appointments within next 90 days and meeting all other requirements documented in this encounter Plan of Treatment Upcoming Encounters Date Type Department Care Team (Late st Contact Info) Description 04/05/2025 2:45 PM CDT Office Visit [facility] - Family Medicine - [place] [address] [place] [address] Thong Martin MD [address] [address] documented as of this encounter Visit Diagnoses Diagnosis Primary insomnia Persistent disorder of initiating or maintaining sleep documented in this encounter Additional Health Concerns Infection Onset Date Last Indicated Resolved Time COVID - 19 09/30/2024 09/30/2024 09/30/2024 1:30 PM NEWSCAST PRODUCER Respiratory Rule-Out 09/30/2024 09/30/2024 024 1:30 PM NEWSCAST PRODUCER Assessment Noted Time PHQ-9 Depression Total Score: 0 12/14/19 23 11:02 AM NEWSCAST PRODUCER documented as of this encounter Care Teams Linen Checker Relationship Specialty Start Date End Date Thong Martin MD #2 [facility] [address] [facility] [address] [place] [address] PCP - General Family Medicine 09/12/15 Carlos Gallardo MD [address] [address] [facility] [address] [place] [address] Consulting Physician Obstetrics & Gynecology 08/13/17 documented as of this encounter
--- OUTSIDE RECORDS SUMMARY | 2025-02-25 16:10 | XMS_ITS | Encounter Summary ---
Author Organization [facility] Address [address] [place] [address] Phone Care Team Providers Care Spike Machine Heater Name Role Phone Thong Martin MD Primary Care Provider [phone] Carlos Gallardo MD Unavailable [phone] Reason for Visit * Reason Comments Medication Refill Encounter Details Date Type Department Care Team (Late st Contact Info) Description 05/06/2023 Refill [facility] [place] [facility] #2 [place] [address] Thong Martin MD #[address] [address] Medication Refill Social History Tobacco Use Types [...] Telephone Encounter - Allie Fitch RN - 05/09/2023 7:22 AM CDT Name from pharmacy: ALPRAZOLAM 0.5MG TABLETS Will file in chart as: ALPRAZolam (XANAX) 0.5 MG Tablet The original prescription was reordered on 05/08/2023 by Candy Prabhakar APRN, PUNCH MOLDER. * Telephone Encounter - Allie Fitch RN - 05/07/2023 3:48 PM CDT duplicate * Telephone Encounter - Mickie Wan RN - 05/07/2023 11:34 AM CDT Duplicate documented in this encounter Plan of Treatment Upcoming Encounters Date Type Department Care Team (Late st Contact Info) Description 04/05/2025 2:45 PM CDT Office Visit [facility] [place] #[address] [place] [address] Thong Martin MD #[address] [address] documented as of this encounter Visit Diagnoses Diagnosis Primary insomnia Persistent disorder of initiating or maintaining sleep documented in this encounter Additional Health Concerns Infection Onset Date Last Indicated Resolved Time COVID - 19 09/30/2024 09/30/2024 09/30/2024 1:30 PM COMEDIAN Respiratory Rule-Out 09/30/2024 09/30/2024 024 1:30 PM COMEDIAN Assessment Noted Time PHQ-9 Depression Total Score: 0 12/14/19 23 11:02 AM COMEDIAN documented as of this encounter Care Teams Spike Machine Heater Relationship Specialty Start Date End Date Thong Martin MD #[address] [address] PCP - General Family Medicine 09/12/15 Carlos Gallardo MD [address] [facility] [place] [address] Consulting Physician Obstetrics & Gynecology 08/13/17 documented as of this encounter
--- OUTSIDE RECORDS SUMMARY | 2025-02-25 16:10 | XMS_ITS ---
Author Organization [facility] Address [address] [place], [place] [address] Care Team Providers Care Operations Assistant Name Role Phone Saunders Conner Unavailable [phone] Medications Medication SIG (Take, Route, Frequency, Duration) Notes Start Date End Date Status Ondansetron HCl 4 MG Oral 01/01/2024 Unknown Fluconazole 150 MG Oral 01/01/2024 Unknown Amoxicillin-Pot Clavulanate 875-125 MG Oral 01/01/2024 Unkno wn Sucralfate 1 GM 1 tablet on an empty stomach Orally 4 times a day for 30 days Crush pill in 1 ounce of liquid before taking 10/28/2024 02/25/2025 Unknown ProAir Digihaler 108 (90 Base) MCG/ACT Inhalation 01/01/2024 Unknown PreviDent 5000 Booster Plus 1.1 % Dental 01/01/2024 Unknown PARoxetine HCl ER 37.5 MG Oral 01/01/2024 Unknown Lo Loestrin Fe 1 MG-10 MCG / 10 MCG Oral 01/01/2024 Unknown valACYclovir HCl 500 MG Oral 01/01/2024 Unknown Ondansetron 4 MG Oral 01/01/2024 Un known ALPRAZolam 1 MG Oral 01/01/2024 Unk nown Omeprazole 40 MG Oral 01/01/2024 Un known Encounters Encounter Location Date Provider Diagnosis [facility] [address] [place], [place] [address] 01/06/2025 Conner Saunders Vitamin deficiency, unspecified E56.9 ; Postsurgical malabsorption, 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 ; Other specified personal risk factors, not elsewhere classified Z91.89 and S/P bariatric surgery Z98.84 Assessments Encounter Date Diagnosis (ICD Code) Assessment Notes Treatment Notes Treatment Clinical Notes Section Notes 01/06/2025 Vitamin deficiency, unspecified (ICD-10 - E56.9) 01/06/2025 Postsurgical malabsorption, not elsewhere classified (ICD-10 - K91.2) 01/06/2025 Other specified personal risk factors, not elsewhere classified (ICD-10 - Z91.89) 01/06/2025 S/P bariatric surgery (ICD-10 - Z98.84) Plan Of Treatment Pending Test Test Name Order Date LIPID PANEL, STANDARD (7600) 01/06/2025 IRON, TIBC AND FERRITIN PANEL (5616) COMPREHENSIVE METABOLIC PANEL (49688) CBC (H/H, RBC, INDICES, WBC, PLT) (1759) 01/06/2025 HEMOGLOBIN A1c (496) 01/06/2025 VITAMIN B12/FOLATE, SERUM PANEL (7065) 0 01/06/2025 TSH (899) 01/06/2025 VITAMIN D,25-OH,TOTAL,IA (63184) 025 ZINC (945) 01/06/2025 VITAMIN B1 (THIAMINE), SERUM/PLASMA, LC/ MS/MS (62545) 01/06/2025 Procedure Notes * Category Sub-Category Detail Notes [...] arise; and continue to follow-up with bariatric gas compressor operator. There are no barriers to education today: . DISPOSITION: Return in: 6 months for follo w-up visit. Patient also instructed to h ave repeat [...] . Progress Notes * SAUL COCHRAN ADOB:1990 (35 yo F)Acc No.[id number]:01/06/2025 Progress Notes Patient: SAUL GARNER Provider: Mihaela Saunders DO :1990 A ge:34 Y S ex:Female Date:01/06/2025 Address:[address], [id number] Subjective: * Chief Complaints: * * HPI: H istory of Present Illness: Visit: T marianela since surgery: 5 Years 6 Months S urgical Procedure: R oux En Y Gastric Bypass Laparoscopic With Small Bowel Resection D ate of Surgery: 0 07/13/2019 Interval History: T dannie patient is a f emale presenting for bariatric postoperative follow-up. Since our last follow- up, gio avila been taking bariatric vitamins and gio avila not had bariatric vitamin labs drawn. > INTERVAL ISSUES/CONCERNS: n one H as patient been admitted to the hospital??No H as patient undergone any post-bariatric surgical operations or interventions? N o P re-surgical Weight: 2 19 lb L ast Visit Weight: 1 25 lb T NORMA'S WEIGHT: l b T otal Weight Loss (TBW): l b % TBW Lost: % > Daily fluid/water intake = 4 0-60 ounces > Protein Intake is a dequate > Physical Activity: W alking less than 10,000 steps/day COMORBIDITY EVALUATION : KIESHA Yes - no longer requiring CPAP at night following weight loss s/p bariatric surgery GERD Yes - taking omeprazole (Prilosec) Hypertension No Hyperlipidemia No Diabetes No VTE [...] BMs without complaint. ? 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 * Surgical History: L umpectomy of breast (979621405) 10/21/2007, Cholecystectomy 10/21/2010, section (35770122) 10/21/2017, Esophagogastroduodenoscopy (02971412) Dr. Conner Saundesr; [facility] 04/14/2019, Esophagogastroduodenoscopy (32251400) Dr. Conner Saunders; [facility] 05/06/2020, Gastric bypass Dr. Conner Saunders; [facility] 07/13/2019. * Medications: U nknown ALPRAZolam 1 MG Tablet Oral , Unknown Omeprazole 40 MG Capsule Delayed Release Oral , Unknown Ondansetron 4 MG Tablet Disintegrating Oral , Unknown valACYclovir HCl 500 MG Tablet Oral , Unknown Lo Loestrin Fe 1 MG-10 MCG / 10 MCG Tablet Oral , Unknown PARoxetine HCl ER 37.5 MG Tablet Extended Release 24 Hour Oral , Unknown PreviDent 5000 Booster Plus 1.1 % Paste Dental , Unknown ProAir Digihaler 108 (90 Base) MCG/ACT Aerosol Powder Breath Activated Inhalation , Unknown Sucralfate 1 GM Tablet 1 tablet on an empty stomach Orally 4 times a day Crush pill in 1 ounce of liquid before taking, stop date 02/25/2025, Unknown Amoxicillin-Pot Clavulanate 875-125 MG Tablet Oral , Unknown Fluconazole 150 MG Tablet Oral , Unknown Ondansetron HCl 4 MG Tablet Oral Objective: * Vitals: Past Vitals:* 10/28/2024 Wt:125, BMI:24.41, BP:117/87 * Examination: P hysical Exam: General: W [...] during visit today. Assessment: * Assessment: 1. V itamin deficiency, unspecified - E56.9 2 . P ostsurgical malabsorption, not elsewhere classified - K91.2 3 . O ther specified personal risk factors, not elsewhere classified - Z91.89 4 . S /P bariatric surgery - Z98.84 ? Plan: * Treatment: 2. P ostsurgical malabsorption, not elsewhere classified L AB: LIPID PANEL, STANDARD (7600) L AB: IRON, TIBC AND FERRITIN PANEL (5616) L AB: COMPREHENSIVE METABOLIC PANEL (33180) L AB: CBC (H/H, RBC, INDICES, WBC, PLT) (1759) L AB: HEMOGLOBIN A1c (496) L AB: VITAMIN B12/FOLATE, SERUM PANEL (7065) L AB: TSH (899) L AB: VITAMIN D,25-OH,TOTAL,IA (67587) L AB: ZINC (945) L AB: VITAMIN B1 (THIAMINE), SERUM/PLASMA, LC/MS/MS (29302) 3. O ther specified personal risk factors, not elsewhere classified L AB: LIPID PANEL, STANDARD (7600) L AB: IRON, TIBC AND FERRITIN PANEL (5616) L AB: COMPREHENSIVE METABOLIC PANEL (87353) L AB: CBC (H/H, RBC, INDICES, WBC, PLT) (1759) L AB: HEMOGLOBIN A1c (496) L AB: VITAMIN B12/FOLATE, SERUM PANEL (7065) L AB: TSH (899) L AB: VITAMIN D,25-OH,TOTAL,IA (22488) L AB: ZINC (945) L AB: VITAMIN B1 (THIAMINE), SERUM/PLASMA, LC/MS/MS (71465) 4. S /P bariatric surgery L AB: LIPID PANEL, STANDARD (7600) L AB: IRON, TIBC AND FERRITIN PANEL (5616) L AB: COMPREHENSIVE METABOLIC PANEL (53718) L AB: CBC (H/H, RBC, INDICES, WBC, PLT) (1759) L AB: HEMOGLOBIN A1c (496) L AB: VITAMIN B12/FOLATE, SERUM PANEL (7065) L AB: TSH (899) L AB: VITAMIN D,25-OH,TOTAL,IA (12716) L AB: ZINC (945) L AB: VITAMIN B1 (THIAMINE), SERUM/PLASMA, LC/MS/MS (94151) * Procedures: P ost Operative Plan: Education: [...] arise; and continue to follow-up with bariatric gas compressor operator. There are no barriers to education today . DISPOSITION: R eturn in 6 months for follow-up visit. P atient also instructed to have repeat labs drawn prior to next postop follow-up visit; orders placed: CBC w/diff, CMP, Vit B1, Folate, Vit B12, iron/TIBC, lipid panel, 25-Hydroxy, HbA1C, zinc. The patient is encouraged to call the clinic with any questions or concerns in the meantime. The patient demonstrates understanding and is amendable to the above outlined plan . * Billing Information: * Visit Code: * Procedure Codes: * Electronic signature of Stewart Saunders DO, [id number] on 02/25/2025 at 04:10 PM CDT Sign off status: Pending * Provider: Mihaela Saunders DO Date: 0 01/06/2025 Generated for Paulette garcia/Derrell/Johnransmitting on: 0 02/25/2025 04:10 PM CDT History and Physical Notes * HPI (History of Present Illness) Category Sub-Category Detail Notes Category Not es History of Present Illness Visit: Time since surgery:: 5 Years 6 Months Surgical Procedure:: Elizabeth En Y Gastric B ypass Laparoscopic With Small Bowel Resection Date of Surgery:: 07/13/2019 Interval History: The patient is a: female prese nting for bariatric postoperative follow-up. Since our last follow-up, they: have been taking bariatri c vitamins and they: have not had bariatric vitami n labs drawn. > INTERVAL ISSUES/CONCERNS:: none [facility] No Has patient undergone any po st-bariatric surgical operations or interventions?: No Pre-surgical Weight:: 219 lb Last Visit Weight:: 125 lb TODAY'S WEIGHT:: lb Total Weight Loss (TBW):: lb %TBW Lost:: % > Daily fluid/water intake =: 40-60 ounc es > Protein Intake is: adequate > Physical Activity:: Walkin g less than 10,000 steps/day COMORBIDITY EVALUATION : KIESHA Yes - no longer requ iring CPAP at night following weight loss s/p bariatric surgery GERD Yes - taking omeprazole (Prilose c) Hypertension No Hyperlipidemia No Diabetes No VTE No Is Patient attending any support groups Encour ed attendance: . Does patient take any medica tions for weight loss? -: No Examination Category Sub-Category Detail Notes [...]
--- OUTSIDE RECORDS SUMMARY | 2025-02-25 16:10 | XMS_ITS ---
Author Organization [facility] Address [address] [place], [place] [address] Care Team Providers Care Die Drawing Checker Name Role Phone Conner Saunders DO [phone] REASON FOR VISIT egd-ulcer @1p pt aware Encounters Encounter Location Date Provider Diagnosis [facility] [address] [place] [address] 11/06/2024 Conner Saunders Plan Of Treatment No Information Progress Notes * SAUL COCHRAN ADOB:1990 (35 yo F)Acc No.[id number]:11/06/2024 Patient: Lennie SAUL HERNANDEZ Provider: Mihaela Saunders DO :1990 A ge:34 Y S ex:Female Date:11/06/2024 Address:[facility] [address] [id number] * Billing Information: * Visit Code: * Procedure Codes: * Electronic signature of Stewart Saunders DO, [id number] on 02/25/2025 at 04:09 PM CDT Sign off status: Pending * Provider: Mihaela Saunders DO Date: 0 11/06/2024 Generated for Paulette garcia/Derrell/eTamansmitting on: 0 02/25/2025 04:09 PM CDT
--- OUTSIDE RECORDS SUMMARY | 2025-02-25 16:10 | XMS_ITS | Encounter Summary ---
Author Organization [facility] Address [address] [place] [address] Phone Care Team Providers Care Call Worker Name Role Phone hTong Martin MD Primary Care Provider Carlos Gallardo MD Unavailable [phone] Reason for Visit * Reason Comments Medication Refill Encounter Details Date Type Department Care Team (Late st Contact Info) Description 12/17/2022 Refill [facility] [address] [place] [address] Thong Martin MD [address] [address] Medication Refill Social History Tobacco Use Types [...] Orientation Straight 07/03/2023 4 :54 PM CDT COVID-19 Exposure Response Date Recorded In the last 10 days, have yo u been in contact with someone who was confirmed or suspected to have Coronavirus/COVID-19? No / Unsure 12/14/2022 10:49 AM TUBE CLOSING MACHINE OPERATOR documented as of this encounter Miscellaneous Notes * Telephone Encounter - Abby Roland RN - 12/18/2022 8:58 AM CST Medication failed the protocol, provider to review and approve the medication order if appropriate. Requested Prescriptions Pending Prescriptions Disp Refills PARoxetine CR (PAXIL-CR) 37.5 MG TABLET SR 24 HR [Pharmacy Med Name: PARoxetine HCl ER 37.5 MG OralTablet Extended Release 24 Hour] 90 Tablet 0 Sig: Take 1 tablet by mouth once daily SSRI (6 Month Refill Only) Protocol Failed - 12/17/2022 12:11 PM Failed - Patient has established therapy with SSRI for at least 6 months Passed - No test in the past 12 months or most recent test was negative Passed - No active on record Passed - Visit with relevant provider in past 6 months or upcoming 90 days Recent Visits Date Type Provider Dept 12/14/22 Office Visit Thong Martin MD [facility] 11/30/22 Office Visit Shailesh Brennan APRN, SORAYA [facility] 06/28/22 Office Visit Thong Martin MD [facility] Showing recent visits within past 182 days and meeting all other requirements Future Appointments No visits were found meeting these conditions. Showing future appointments within next 90 days and meeting all other requirements Passed - Has an encounter in the past 6 months with a depression, anxiety, adjustment disorder, OCD, or PTSD visit diagnosis CLOSING MACHINE OPERATOR documented in this encounter Plan of Treatment Upcoming Encounters Date Type Department Care Team (Late st Contact Info) Description 04/05/2025 2:45 PM CDT Office Visit [facility] - [facility] - [place] [address] [place] [address] Thong Martin MD [address] [address] documented as of this encounter Visit Diagnoses Not on filedocumented in this encounter Additional Health Concerns Infection Onset Date Last Indicated Resolved Time COVID - 19 09/30/2024 09/30/2024 09/30/2024 1:30 PM TUBE CLOSING MACHINE OPERATOR Respiratory Rule-Out 09/30/2024 09/30/2024 024 1:30 PM TUBE CLOSING MACHINE OPERATOR Assessment Noted Time PHQ-9 Depression Total Score: 0 12/14/19 23 11:02 AM TUBE CLOSING MACHINE OPERATOR documented as of this encounter Care Teams Call Worker Relationship Specialty Start Date End Date Thong Martin MD #2 [facility] [address] [facility] [address] [place] [address] PCP - General Family Medicine 09/12/15 Carlos Gallardo MD [address] [facility] [place] [address] Consulting Physician Obstetrics & Gynecology 08/13/17 documented as of this encounter
--- OUTSIDE RECORDS SUMMARY | 2025-02-25 16:10 | XMS_ITS | Encounter Summary ---
Author Organization [facility] Address [address] [place] [address] Phone Care Team Providers Care Stonecutter Apprentice Hand Name Role Phone Thong Martin MD Primary Care Provider Carlos Gallardo MD Unavailable [phone] Reason for Visit * Reason Comments Medication Refill Encounter Details Date Type Department Care Team (Late st Contact Info) Description 09/03/2022 Refill [facility] [address]2 [place] [address] Thong Martin MD #[address] [address] Medication Refill Social History Tobacco Use Types Packs/Day Years Used Date Smoking Tobacco: Never Smokeless Tobacco: Never Alcohol Use Standard Drinks/Week Comments Yes 0 (1 standard drink = 0.6 oz pur e alcohol) rarely PHQ-2 Answer Date Recorded Total Score - Questions 1-9 0 04/0 02/2022 Sexually Active Control Partners Comments Yes Male Comments No Sex and Gender Information Value Date Recorded Sex Assigned at Not on file Legal Sex Female 11:47 PM CDT Gender Identity Not on file Sexual Orientation Straight 07/03/2023 4 :54 PM CDT documented as of this encounter Miscellaneous Notes * Telephone Encounter - Allie Fitch RN - 09/04/2022 10:59 AM CST Name from pharmacy: PHENTERMINE 37.5MG TABLETS Will file in chart as: Phentermine HCl 37.5 MG Tablet The original prescription was discontinued on 07/20/2021 Last Rx 05/03/2020 Needs apt with PCP to discuss need. DATA DEVELOPER documented in this encounter Plan of Treatment Upcoming Encounters Date Type Department Care Team (Late st Contact Info) Description 04/05/2025 2:45 PM CDT Office Visit [facility] - [place] [address] [place] [address] Thong Martin MD #[address] [facility] [place] [address] documented as of this encounter Visit Diagnoses Not on filedocumented in this encounter Additional Health Concerns Infection Onset Date Last Indicated Resolved Time COVID - 19 09/30/2024 09/30/2024 09/30/2024 1:30 PM TERADATA DEVELOPER Respiratory Rule-Out 09/30/2024 09/30/2024 024 1:30 PM TERADATA DEVELOPER Assessment Noted Time PHQ-9 Depression Total Score: 0 01/24/20 22 12:00 PM CDT documented as of this encounter Care Teams Stonecutter Apprentice Hand Relationship Specialty Start Date End Date Thong Martin MD #[address] [facility] [place] [address] PCP - General Family Medicine 09/12/15 Carlos Gallardo MD 4 [facility] [address] [place] [address] Consulting Physician Obstetrics & Gynecology 08/13/17 documented as of this encounter
--- OUTSIDE RECORDS SUMMARY | 2025-02-25 16:10 | XMS_ITS | Referral Summary ---
Author Organization [facility] Address [address] [place] [address] Care Team Providers Care Import Coordination And Production Head Name Role Phone Thong Martin MD Primary Care Provider [phone] Encounters Date Type Department Care Team Description 01/11/2025 Documentation [facility] [address] [place] [address] Mahsa Marrero DO 01/04/2025 2:30 PM CDT Office Visit [facility] [address] [place] [address] Mahsa Marrero DO Encounter to establish care (Primary Dx); Encounter for surveillance of contraceptive pills from Last 3 Months Allergies Active Allergy Reactions Criticality Noted Date [...] 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 Primary snoring 01/04/2025 Temporomandibular ameed-qgml-ezbxctpprim syndrom e 01/04/2025 Tonsillar hypertrophy 01/04/2025 Morbid obesity with body mass index of 40.0-49.9 03/30/2019 Anxiety 06/06/2017 Irritable bowel syndrome 07/12/2015 Overview (01/25/2017): IBS Knee pain 03/06/2014 Overview (01/25/2017): Knee pain Depression 07/07/2013 Overview (01/25/2017): Depression Lump or mass in breast 01/13/2010 Immunizations Immunization Administration Dates Next Due Influenza, Quadrivalent, Spl it, Preservative Free, Intramuscular 08/04/2018 Influenza, Trivalent, Preservative Free, Intramu scular 08/18/2014 Tdap 02/16/2014 Social History Tobacco Use Types Packs/Day Years Used Date Smoking Tobacco: Every Day Vaping Tobacco Cessation:Ready to Q uit: Not Asked; Counseling Given: Not Answered Alcohol Use Standard Drinks/Week Comments No 0 (1 standard drink = 0.6 oz pur e alcohol) Comments No Sex and Gender Information Value Date Recorded Sex Assigned at Not on file Legal Sex Female 8:43 PM AUTOMATION MACHINE BUILDER Gender Identity Not on file Sexual Orientation Not on file Occupation Industry Job Start Date Job End Date Not on file Not on file Not on file Not on file Last Filed Vital Signs Vital Sign Reading [...] 01/04/2025 2:19 PM CDT Plan of Treatment Not on file Procedures Procedure Name Priority Date/Time Associated Diagnosis Comments GENITAL FLUID PAP SMEAR, THIN PREP WITH HPV EVALUATION Routine 09/09/2016 6:00 PM AUTOMATION MACHINE BUILDER from Last 3 Months or Most Recently Relevant to Health Maintenance Results * Genital fluid pap smear, thin prep with HPV evaluation (09/09/2016 6:00 PM AUTOMATION MACHINE BUILDER) Clinical information SEE NOTE CDR HISTORICAL RESULTS [...] computer assisted technology. Genital 09/09/2016 6:00 PM AUTOMATION MACHINE BUILDER Narrative CDR HISTORICAL RESULTS - 09/17/2016 6:00 AM AUTOMATION MACHINE BUILDER Test performed at [address] [address] Director: SHIRLEY BOUCHER MD us Historical Provider LAB CYTOLOGY ORDERABLES F inal Result CDR HISTORICAL RESULTS from Last 3 Months or Most Recently Relevant to Health Maintenance Insurance CIG CIG AETNA SIG GRV01 Care Teams Import Coordination And Production Head Relationship Specialty Start Date End Date Thong Martin MD [address] [facility] [address] [address] PCP - General 07/12/15
--- OUTSIDE RECORDS SUMMARY | 2025-02-25 16:10 | XMS_ITS | Encounter Summary ---
Author Organization [facility] Address [address] [place] [address] Phone Care Team Providers Care Chief Human Resources Officer Name Role Phone Thong Martin MD Primary Care Provider Carlos Gallardo MD Unavailable [phone] Reason for Visit * Reason Comments Medication Refill Encounter Details Date Type Department Care Team (Late st Contact Info) Description 01/20/2023 Refill [facility] [address] [place] [address] Thong Martin MD #[address] [address] Medication Refill Social History Tobacco Use Types [...] Telephone Encounter - Allie Fitch RN - 01/21/2023 12:21 PM CDT PDMP 12/19/22 Medication failed the protocol, provider to review and approve the medication order if appropriate. Requested Prescriptions Pending Prescriptions Disp Refills ALPRAZolam (XANAX) 0.5 MG Tablet [Pharmacy Med Name: ALPRAZOLAM 0.5MG TABLETS] 30 Tablet 0 Sig: TAKE 1 TABLET BY MOUTH EVERY NIGHT NEEDED FOR SLEEP Not Delegated - Benzodiazepines Protocol Failed - 01/20/2023 5:19 PM Failed - This refill cannot be delegated Passed - Visit with relevant provider in past 12 months or upcoming 90 days Recent Visits Date Type Provider Dept 12/14/22 Office Visit [facility] 11/30/22 Office Visit Shailesh Brennan APRN, SORAYA [facility] 06/28/22 [facility] 04/09/22 Office Visit Candy Prabhakar APRN, SILVERWARE ASSEMBLER [facility] 03/01/22 [facility] 01/26/22 Office Visit Candy Prabhakar APRN, SILVERWARE ASSEMBLER [facility] 01/23/22 Office Visit Thong Martin MD [facility] Showing recent visits within past 365 days and meeting all other requirements Future Appointments No visits were found meeting these conditions. Showing future appointments within next 90 days and meeting all other requirements documented in this encounter Plan of Treatment Upcoming Encounters Date Type Department Care Team (Late st Contact Info) Description 04/05/2025 2:45 PM CDT Office Visit [facility] - Family Medicine - [place] [address] [place] [address] Thong Martin MD [address] [address] documented as of this encounter Visit Diagnoses Diagnosis Primary insomnia Persistent disorder of initiating or maintaining sleep documented in this encounter Additional Health Concerns Infection Onset Date Last Indicated Resolved Time COVID - 19 09/30/2024 09/30/2024 09/30/2024 1:30 PM DOUBLE BOTTOM DRIVER Respiratory Rule-Out 09/30/2024 09/30/2024 024 1:30 PM DOUBLE BOTTOM DRIVER Assessment Noted Time PHQ-9 Depression Total Score: 0 12/14/19 23 11:02 AM DOUBLE BOTTOM DRIVER documented as of this encounter Care Teams Chief Human Resources Officer Relationship Specialty Start Date End Date Thong Martin MD #2 [facility] [address] [place] [address] PCP - General Family Medicine 09/12/15 Carlos Gallardo MD [address] [facility] [address] [place] [address] Consulting Physician Obstetrics & Gynecology 08/13/17 documented as of this encounter
--- OUTSIDE RECORDS SUMMARY | 2025-02-25 16:10 | XMS_ITS | Clinical Summary ---
Author Organization [facility] [place] Address [address] [place] [address] Phone Care Team Providers Care Senior Web Services Developer Name Role Phone Thong Martin MD Primary Care Provider [phone] Allergies No known active allergies Medications norethindrone-e .estradiol-iron (LO LOESTRIN FE) 1 mg-10 mcg (24)/10 mcg (2) Tablet per tablet Take 1 Tablet by mouth late in the day. Active omeprazole (PriLOSEC) 40 mg Capsule, Delayed Release(E.C.)In dications:S/P gastric bypass Take 1 Capsule (40 mg) by mouth daily. Please open capsule and put contents in sugar free jello 30 Capsule 2 12/15/2021 Active sucralfate (CARAFATE) 1 gram tabletIndicatio ns:S/P gastric bypass Take 1 Tablet (1 Gram) by mouth 4 times daily. 120 Tablet 02/07/2023 Active ALPRAZolam (XANAX) 0.5 mg tablet Take 0.5 mg by mouth nightly as needed for Anxiety. Active ondansetron (ZOFRAN ODT) 4 mg Tablet, Rapid Dissolve Take 1 Tablet (4 mg) by mouth every 8 hours as needed for Nausea/Emesis . Dissolve tablet on top of tongue, then swallow with saliva. 30 Tablet 2 01/24/2024 Active PARoxetine hcl (PAXIL CR) 37.5 mg Controlled Release 24 hour tablet Take 37.5 mg by mouth daily. Active Active Problems Patient Care Coordination No te Formatting of this note migh t be different from the original. Primary Care: Eliel Referring Provider: Liam Other: Problem Noted Date Diagnosed Date Morbid obesity with body mass index of 40.0-49.9 03/30/2019 Lump or mass in breast 01/13/2010 Encounters Date Type Department Care Team Description 02/02/2025 External Device Data [facility] ABSTRACTION Provider, Abstract 01/06/2025 External Device Data [facility] Provider, Abstract 01/05/2025 External Device Data [facility] Provider, Abstract 12/26/2024 External Device Data [facility] Provider, Abstract 12/25/2024 External Device Data [facility] Provider, Abstract 12/22/2024 External Device Data [facility] Provider, Abstract 12/08/2024 External Device Data [facility] Provider, Abstract from Last 3 Months Family History Medical History Relation Name Comments Diabetes Maternal Aunt Colon Cancer Maternal Grandfather Ovarian Cancer Mother age 48 Ovarian Cancer Other maternal great grandmoth a ge 72 Relation Name Status Comments Maternal Aunt Maternal Grandfather Mother Other maternal great grandmoth Alive Social History Tobacco Use Types Packs/Day Years Used Date Smoking Tobacco: Never Smokeless Tobacco: Never Tobacco Cessation:Counseling Given: Not Answered Alcohol Use Standard Drinks/Week Comments Yes 0 (1 standard drink = 0.6 oz pur e alcohol) rarely Feeling Safe Answer Date Recorded Are you in a relationship wi th someone who hurts you emotionally and/or physically? No 11/06/2024 Comments No Sex and Gender Information Value Date Recorded Sex Assigned at Not on file Legal Sex Female 5:52 AM SALES OPERATIONS Gender Identity Not on file Sexual Orientation Not on file Last Filed Vital Signs Vital Sign Reading Time Taken Comments Blood Pressure 101/61 11/06/2024 1:27 PM SALES OPERATIONS Pulse 65 11/06/2024 1:27 PM SALES OPERATIONS Temperature 36.7 C (98 F) 11/06/2024 1:13 PM SALES OPERATIONS Respiratory Rate 16 11/06/2024 1:27 PM SALES OPERATIONS Oxygen Saturation 100% 11/06/2024 1:27 PM SALES OPERATIONS Inhaled Oxygen Concentration - - Weight 55.8 kg (123 lb) 11/06/2024 12:27 PM SALES OPERATIONS Height 154.9 cm (5' 1 ) 11/06/2024 12:27 PM SALES OPERATIONS Body Mass Index 23.24 11/06/2024 12:27 PM SALES OPERATIONS Plan of Treatment Health Maintenance Due Date Last Done Comments HEPATITIS B VACCINES (1 of 3 - 19+ 3-dose series) 01/11/2011 HPV/Cotest (21-29) 01/11/2013 CERVICAL CANCER SCREENING 01/11/2022 HPV/Cotest (30-65) 01/11/2022 PAP SMEAR 01/11/2022 09/09/2016 DTAP/TDAP/TD VACCINES (2 - Td or Tdap) 02/17/2024 02/16/2014 INFLUENZA VACCINE (#1) 2024 9, 08/04/2018, 06/30/2018, Additional history exists HPV VACCINES Aged Out No longer eligi ble based on patient's age to complete this topic Insurance [facility] Advance Directives For more information, please contact: [phone] * Full Code (Latest Code Status on File) Date Activated Date Inactivated Comments 11/06/2024 12:27 PM 11/06/2024 4:30 PM * Full Code Date Activated Date Inactivated Comments 01/24/2024 1:18 PM 01/24/2024 4:32 PM * Full Code Date Activated Date Inactivated Comments 05/06/2020 8:02 AM 05/06/2020 11:32 AM * Full Code Date Activated Date Inactivated Comments 07/13/2019 11:53 AM 07/15/2019 4:16 PM * Full Code Date Activated Date Inactivated Comments 07/13/2019 10:47 AM 07/13/2019 11:52 AM Care Teams Senior Web Services Developer Relationship Specialty Start Date End Date Thong Martin MD [address] [address] PCP - General Internal Medicine 07/03/19
--- OUTSIDE RECORDS SUMMARY | 2025-02-25 16:10 | XMS_ITS | Patient Health Record ---
Author Organization [facility] Address [address] [place], [place] [address] Care Team Providers Care Stove Refinisher Name Role Phone Conner Saunders DO Unavailable [phone] Migration, Provider Unavailable Unavailable Allergies No Known Allergies Reason For Referral No Information Medications Medication SIG (Take, Route, Frequency, Duration) Notes Start Date End Date Status ALPRAZolam 1 MG Oral 01/01/2024 Unk nown Ondansetron HCl 4 MG Oral 01/01/2024 Unknown [...] Ondansetron 4 MG Oral 01/01/2024 Un known Omeprazole 40 MG Oral 01/01/2024 Un known Problems Problem Type SNOMED Code ICD Code Onset Dates Problem Status W/U Status Risk Notes Problem Vitamin deficiency (60978024) Vitamin deficiency, unspecified (E56.9) Active confirmed Problem Obstructive sleep apnea syndrome (disorder) (38618058) Obstructive sleep apnea (adult) (pediatric) (G47.33) 4 Active confirmed Problem Gastro-esophageal reflux disease without esophagitis (658518190) Gastro-esophagea l reflux disease without esophagitis (K21.9) 4 Active confirmed Problem Intestinal malabsorption (075276421) Intestinal malabsorption, unspecified (K90.9) 4 Active confirmed Problem Post-surgical malabsorption (disorder) (457205455) Postsurgical malabsorption, 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) 4 Active confirmed Problem Family history of diabetes mellitus (618746306) Family history of diabetes mellitus (Z83.3) 4 Active confirmed Problem History of peptic ulcer (213168753) Personal history of peptic ulcer disease (Z87.11) 4 Active confirmed Problem Personal risk factor (883303820) Other specified personal risk factors, not elsewhere classified (Z91.89) 4 Active confirmed Problem History of bariatric surgical procedure (897362828) Bariatric surgery status (Z98.84) 4 Active confirmed Problem Depression (707092902) Depression, unspecified (F32.A) 4 Active confirmed Problem Body mass index 25-29 - overweight (097338206) Body mass index (BMI) 27.0-27.9, adult (Z68.27) 4 Active confirmed Vital Signs Heart Rate 80 /min 10/28/2024 Temperature 97.9 degrees Fahrenheit 10/28/2024 Height-cm 152.40 cm 10/28/2024 Blood pressure diastolic 87 mm Hg 10/28/2024 Oximetry 98 % 10/28/2024 Weight-kg 56.7 kg 10/28/2024 Height 60.00 in 10/28/2024 Blood pressure systolic 117 mm Hg 10/28/2024 Weight 125 lbs 10/28/2024 BMI 24.41 kg/m2 10/28/2024 Procedures Procedure Date Ordered Date Performed Result Body Sit e ESOPHAGOGASTRODUODENOSCOPY 10/28/2024 N/A Encounters Encounter Location Date Provider Diagnosis [facility] [address] [place] [address] 11/06/2024 Conner Saunders [facility] [address] [id number] 10/28/2024 Conner Saunders S/P gastric bypass Z98.84 ; Nicotine use Z72.0 ; Epigastric pain R10.13 ; Gastro-esophageal reflux disease without esophagitis K21.9 ; History of bariatric surgery Z98.84 ; Nausea and vomiting in adult R11.2 and Chronic gastritis without bleeding, unspecified gastritis type K29.50 [facility] [address] [id number] 03/14/2024 Provider Migration [facility] [address] [id number] 03/15/2024 Provider Migration [facility] [address] [id number] 10/16/2024 Conner Saunders Assessments Encounter Date Diagnosis (ICD Code) Assessment [...] type (ICD-10 - K29.50) Plan Of Treatment Pending Test Test Name Order Date ESOPHAGOGASTRODUODENOSCOPY 10/28/2024 Insurance Providers Payer Name Payer Address Payer Phone Subscriber Number Group Number Insured Name Patient Relationship to Insured Coverage Start Date Coverage End Date [employer] [address] [place] [id number] SAUL BOWDEN Self - patient is the insured Medical (General) History Medical History History ICD Code Problems: Depressive disorder Family history of diabetes mellitus Gastroesophageal reflux disease History of bypass of stomach History of peptic ulcer Obstructive sleep apnea syndrome , Gastroesophageal reflux dis : Yes 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 Conner Saunders; [facility] 04/14/2019 Esophagogastroduodenoscopy ( 31376556) Dr. Conner Saunders; [facility] 05/06/[address] Conner Saunders; [facility] 07/13/2019
--- OUTSIDE RECORDS SUMMARY | 2025-02-25 16:13 | XMS_ITS | Continuity of Care Document ---
Author Organization [facility] Address [address] [place] [address] Phone Care Team Providers Care Scallop Cutter Machine Name Role Phone Administrative, Provider Unavailable Unavail able Procedures Procedure Date Medical testimony Rende Scheduling Rescheduling Medical Testimon y Rende Work/Medical Disability Exam RJR 2016 ANITA No Show Rende Advance Directives Directive Yes / No Effective Date File Name No Information Encounters Encounter Description Practice Location Reason(s) For Visit Diagnoses Date Provider Providers Copied on Encounter [facility], [address] [place] [address], [address] [place] [address], tel:[phone] [place] No Information 7 Administrative Provider. [address] [place] [address], [id number], [place]. tel:[phone] Referring Provider: Deacon Nova, [address] [place] [address], [address] . tel:[phone] [facility], [address] [place] [address], [id number], [place] tel:[phone] [facility] No Information 7 Administrative Provider. [address] [place] [address], [id number], [place]. tel:[phone] Referring Provider: Deacon Nova, [address], [place], [address] . tel:[phone] [facility], [address] [place] [address], [place], [place], [id number], tel:[phone] [facility] Sprain of ligaments of cervical spine, initial encounter Administrative Provider. [address] [place] [address], [place] [address], [place], [place], [id number], . tel:[phone] Referring Provider: Deacon Nova, [address] [place] [address], [place], [address] . tel:[phone] [facility], [address] [place] [address], [place], [place], [id number], tel:[phone] [facility] No Information Administrative Provider. [address] [place] [address], [place], [place], [id number], . tel:[phone] Referring Provider: Deacon Nova, [address] [place] [address], [place], [address] . tel:[phone] Family History Family Member Type Diagnosis Age At Onset No Information Payers Payer name Insurance type Covered constitution party ID Authoriza tion(s) No Information Social History [...]
[2025-02-25 16:15] VITALS: BP 128/86; PULSE 91; RESP 20; TEMP 36.8; O2SAT 100
--- NOTE | 2025-02-25 16:54 | ED_ITS ---
HPI - URI/Sore Throat General Chief Complaint: Upper Respiratory Infection Stated Complaint: Sinus Pain Time Seen by Provider: 02/25/25 16:50 Source: patient, RN notes reviewed and old records reviewed Mode of arrival: ambulatory Limitations: no limitations History of Present Illness HPI Narrative: 35 year old female who presents to [facility] care with complaints of sinus congestion, headache and teeth pain for the past 7 days with some facial pressure. Patient reports that she has not noted any fevers chills or body aches. Patient reports that she has been taking Tylenol , Zyrtec, Claritin,Mucinex and also some tramadol for her symptoms without resolution. MD elicited complaint: rhinorrhea, nasal congestion, sinus pain and other (headache) Onset (ago): day(s) (7) Pain scale (0-10): 8 Description of mucous: yellow Able to tolerate fluids by mouth: Yes Treatments prior to arrival: acetaminophen and other (Mucinex, Zyrtec, Claritin and tramadol) Related Data Home Medications ?Medication ?Instructions ?Recorded ?Confirmed ?Last Taken ?Type norethindrone 1 mg-ethinyl 1 tablet PO DAILY 05/15/21 05/25/24 Unknown History estradiol 10 mcg (24)-iron 10 mcg(2) tablet (Lo Loestrin Fe) alprazolam 1 mg tablet See Rx Instructions .Route 05/25/24 05/25/24 Unknown History .COMPLEX PRN Anxiety omeprazole 40 mg capsule,delayed mg 05/25/24 Unknown History release paroxetine HCl 37.5 mg mg PO 05/25/24 Unknown History tablet,extended release 24 hr sucralfate 1 gram tablet 02/25/25 Unknown History Allergies Allergy/AdvReac Type Severity Reaction Status Date / Time No Known Allergies Allergy Verified 02/25/25 16:28 Review of Systems Review of Systems: CONSTITUTIONAL: Reports malaise,no chills, sweats, or fever. EYES: Denies visual changes, redness, or discharge. ENT: Reports rhinorrhea, congestion, sinus pain,no otalgia and no sore throat. CARDIOVASCULAR: Denies chest pain, palpitations, or edema. RESPIRATORY: Reports no acute cough.? Denies dyspnea. GASTROINTESTINAL: Denies abdominal pain, nausea, vomiting, diarrhea SKIN: Denies rash or itching. MUSCULOSKELETAL: Denies myalgia. NEUROLOGIC: reports headache. All systems reviewed & are unremarkable except as noted in HPI and below PMFSH Past Medical History Medical History GERD (gastroesophageal reflux disease) Ulcer Anxiety and depression Surgical History Surgical History Hx of cholecystectomy History of weight loss surgery History of breast biopsy Family History Family History Mother Family history of blood dyscrasia Hypertension Family history of elevated blood lipids Grandparent Carcinoma of colon Other Diabetes mellitus Social History Social History Smoking status: Current every day smoker Tobacco type: e-cigarettes/vaping Second hand tobacco smoke exposure: No Alcohol intake: never Comments At time of signature, agree with nursing past medical, surgical, social and family history. There is no relevant family history pertinent to the presenting complaint Exam Narrative: GENERAL: Well-appearing, well-nourished, and in no acute distress. HEAD: Normocephalic EYES: PERRLA, conjunctivae clear ENT: Nares clear, turbinates edematous and erythematous, yellowish discharge, sinus pressure and headache. Mucous membranes moist. TM pearly reece with dull light reflex bilaterally; no tragal tenderness. Oropharynx erythematous without lesions. Tonsils not enlarged and without exudate, no drooling, no hoarseness, no trismus, uvula midline.post nasal drainage NECK: Supple. No lymphadenopathy CHEST: Clear to auscultation, breath sounds equal. No wheezing, rhonchi, rales, or stridor. No respiratory distress, speaks in full sentences.SAO2 100% on room air HEART: Regular rate and rhythm. No murmur heard. SKIN: Warm, dry, no rash. NEURO: Alert and oriented x3. PSYCH: Normal mood and affect Course Course Emergency Course: Patient is aware of diagnosis, understands and agrees to treatment plan.? Anticipatory guidance given.? Patient agrees to follow-up as directed and is aware of reasons to seek care at the emergency department. Portions of this record may have been created with voice recognition software Level of Care: Express Care Visit Vital Signs Vital signs: Vital Signs Temperature 36.8 C 05/08/25 16:15 Pulse Rate 91 02/25/25 16:15 Respiratory Rate 20 02/25/25 16:15 Blood Pressure 128/86 02/25/25 16:15 Pulse Oximetry 100 02/25/25 16:15 Oxygen Delivery Room Air 02/25/25 16:15 Temperature 36.8 C 02/25/25 16:15 Pulse Rate 91 02/25/25 16:15 Respiratory Rate 20 02/25/25 16:15 Blood Pressure 128/86 02/25/25 16:15 Pulse Oximetry 100 02/25/25 16:15 Oxygen Delivery Room Air 02/25/25 16:15 Reviewed MDM - URI/Sore Throat MDM Narrative Medical decision making narrative: Differential diagnosis considered: Jeffries virus, strep pharyngitis, allergic rhinitis, upper respiratory tract infection, sinusitis, rhinosinusitis, nasopharyngitis. viral pharyngitis, otitis media, otitis externa, pneumonia, bronchitis, viral cough syndrome, viral syndrome, and influenza.? Exam findings show no acute concerns or changes; patient is non-toxic appearing and is in no distress.? Patient is appropriate for outpatient treatment and follow-up. Differential Diagnosis Differential diagnosis: Likely upper respiratory infection, sinusitis and viral infection Medical Records Attestation: I reviewed the patient's medical records. Lab Data Attestation: I reviewed the patient's lab results. Critical Care Time Critical Care Time Critical Care Time: No Discharge Plan Discharge Clinical Impression: Sinusitis Qualifiers: Sinusitis location: pansinusitis Chronicity: acute Recurrence: not specified as recurrent Qualified Code(s): J01.40 - Acute pansinusitis, unspecified Patient Disposition: Home Condition: Stable Instructions: Antibiotic Form, Sinusitis (ED) Additional Instructions: Increase fluids especially juices and water Ipis-ehy-lvgpxjm cough and cold medicine of your choice for your symptoms Zyrtec Claritin or Jane daily include plain Sudafed in a.m. heat to the face 20-30 minutes 4-6 times a day for pain Salt water gargles, throat lozenges or throat sprays as desired Antibiotic as directed--finished the medication Tylenol for any fever pain If your symptoms persist, change or worsen significantly before you can contact your personal physician then please, without delay, go to the emergency department for further evaluation. Follow-up with PCP in 7-10 days or sooner if needed Follow up with PCP soon in regards to your blood pressure which is elevated above threshold for referral. Blood pressure above 120/80 may indicate pre- hypertension. minimal elevation 128/86 use nasal saline in the morning in as needed throughout the day Patient Language: Turkish Prescriptions: New azithromycin 250 mg tablet See Rx Instructions .ROUTE .COMPLEX Qty: 6 0RF Rx Instructions: For 250 mg dose pack: take 500 mg today (day 1), then 250 mg for 4 days (days 2-5) No Action alprazolam 1 mg tablet See Rx Instructions .ROUTE .COMPLEX PRN (Reason: Anxiety) Rx Instructions: ass prescribedd omeprazole 40 mg capsule,delayed release(DR/EC) paroxetine HCl 37.5 mg tablet extended release 24 hr PO sucralfate 1 gram tablet Lo Loestrin Fe 1 mg-10 mcg (24)/10 mcg (2) tablet 1 tablet PO DAILY Follow-up/Referrals: Mario,Thong Wells MD [Primary Care Provider] - Time of Disposition: 17:02 Quality [place] Coma Scale Eyes: Open Verbal: Oriented and Alert Motor: Follows Commands Mary Coma Total Score: 15
== END 2025-02-25 17:05 | disposition home or self-care (01) ==
PROVIDERS: Emergency Provider Registered Nurse; PCP Internal Medicine
DX: J01.40 Acute pansinusitis, unspecified (principal); F17.290 Nicotine dependence, other tobacco product, uncomplicated; K21.9 Gastro-esophageal reflux disease without esophagitis; F41.9 Anxiety disorder, unspecified
CPT/HCPCS: 99213; G0463

== ENCOUNTER 2025-05-10 10:18 | Emergency (ER) | payer OTHER, SELFPAY ==
[2025-05-10 10:26] VITALS: BP 135/81; PULSE 107; RESP 16; TEMP 36.7; O2SAT 100
--- OUTSIDE RECORDS SUMMARY | 2025-05-10 10:31 | XMS_ITS | Encounter Summary ---
Author Organization [facility] Address [address] [place] [address] Phone Care Team Providers Care Ship Rigger Name Role Phone Thong Martin MD Primary Care Provider [phone] Carlos Gallardo MD Unavailable Reason for Visit * Reason Comments Medication Refill Encounter Details Date Type Department Care Team (Late st Contact Info) Description 10/10/2023 Refill [facility] [address] [place] [address] Thong Martin MD [address] [address] Medication Refill Social History Tobacco Use Types [...] 08/15/23 Office Visit Candy Prabhakar APRN, SORAYA [facility] 06/26/23 Office Visit Shailesh Brennan APRN, CNP [facility] 06/13/23 Office Visit Thong Martin MD [facility] 12/14/22 Office Visit Thong Martin MD [facility] 11/30/22 Office Visit Shailesh Brennan APRN, ARCHITECTURAL EXAMINER [facility] Showing recent visits within past 365 days and meeting all other requirements Future Appointments Date Type Provider Dept 12/17/23 Appointment Thong Martin MD [facility] Showing future appointments within next 90 days and meeting all other requirements GER VOICE documented in this encounter Plan of Treatment Upcoming Encounters Date Type Department Care Team (Late st Contact Info) Description 05/28/2025 1:45 PM CDT Office Visit [facility] - [facility] - [place] [address] [place] [address] Maren Anna PAC [address] [place] [address] documented as of this encounter Visit Diagnoses Diagnosis Encounter for long-term (current) use of medications Encounter for long-term (current) use of other medications documented in this encounter Additional Health Concerns Infection Onset Date Last Indicated Resolved Time COVID - 19 09/30/2024 09/30/2024 09/30/2024 1:30 PM MANAGER VOICE Respiratory Rule-Out 09/30/2024 09/30/2024 024 1:30 PM MANAGER VOICE Assessment Noted Time PHQ-9 Depression Total Score: 0 12/14/19 11:02 AM MANAGER VOICE documented as of this encounter Care Teams Ship Rigger Relationship Specialty Start Date End Date Thong Martin MD [address] [address] PCP - General Family Medicine 09/12/15 Carlos Gallardo MD [address] [address] Consulting Physician Obstetrics & Gynecology 08/13/17 documented as of this encounter
--- OUTSIDE RECORDS SUMMARY | 2025-05-10 10:31 | XMS_ITS | Encounter Summary ---
Author Organization [facility] Address [address] [place] [address] Phone Care Team Providers Care Police Aide Name Role Phone Thong Martin MD Primary Care Provider [phone] Carlos Gallardo MD Unavailable [phone] Reason for Visit * Reason Comments Medication Refill Encounter Details Date Type Department Care Team (Late st Contact Info) Description 05/06/2023 Refill [facility] [address] [place] [address] Thong Martin MD [address] [address] Medication Refill Social History Tobacco Use Types [...] reordered on 05/08/2023 by Candy Prabhakar APRN, FLOOR COVERINGS INSTALLER. * Telephone Encounter - Allie Fitch RN - 05/07/2023 3:48 PM CDT duplicate * Telephone Encounter - Mickie Wan RN - 05/07/2023 11:34 AM CDT Duplicate documented in this encounter Plan of Treatment Upcoming Encounters Date Type Department Care Team (Late st Contact Info) Description 05/28/2025 1:45 PM CDT Office Visit [facility] - Family [facility] [address] [place] [address] Maren Anna PAC [address] [place] [address] documented as of this encounter Visit Diagnoses Diagnosis Primary insomnia Persistent disorder of initiating or maintaining sleep documented in this encounter Additional Health Concerns Infection Onset Date Last Indicated Resolved Time COVID - 19 09/30/2024 09/30/2024 09/30/2024 1:30 PM DATA SPECIALIST Respiratory Rule-Out 09/30/2024 09/30/2024 024 1:30 PM DATA SPECIALIST Assessment Noted Time PHQ-9 Depression Total Score: 0 12/14/19 23 11:02 AM DATA SPECIALIST documented as of this encounter Care Teams Police Aide Relationship Specialty Start Date End Date Thong Martin MD [address] [address] PCP - General Family Medicine 09/12/15 Carlos Gallardo MD [address] [address] Consulting Physician Obstetrics & Gynecology 08/13/17 documented as of this encounter
--- OUTSIDE RECORDS SUMMARY | 2025-05-10 10:31 | XMS_ITS | Encounter Summary ---
Author Organization [facility] Address [address] [place] [address] Phone Care Team Providers Care Buttoner Name Role Phone Thong Martin MD Primary Care Provider Carlos Gallardo MD Unavailable [phone] Reason for Visit * Reason Comments Medication Refill Encounter Details Date Type Department Care Team (Late st Contact Info) Description 08/31/2023 Refill [facility] #2 [place] [address] Thogn Martin MD [address] [address] Medication Refill Social History Tobacco Use Types [...] Shirin Burnham RN - 08/31/2023 3:49 PM SMALL ANIMAL VETERINARIAN This script differs from previous script. How [...] Dept 08/15/23 Office Visit Candy Prabhakar APRN, CNP [facility] 06/26/23 Office Visit Shailesh Brennan APRN, CNP [facility] 06/13/23 Office Visit Thong Martin MD [facility] 12/14/22 Office Visit Thong Martin MD [facility] 11/30/22 Office Visit Shailesh Brennan APRN, [facility] Showing recent visits within past 365 days and meeting all other requirements Future Appointments No visits were found meeting these conditions. Showing future appointments within next 90 days and meeting all other requirements L ANIMAL VETERINARIAN documented in this encounter Plan of Treatment Upcoming Encounters Date Type Department Care Team (Late st Contact Info) Description 05/28/2025 1:45 PM CDT Office Visit [facility] - Family Medicine - [place] [address] [place] [address] Maren Anna, PAC [address]2 [place] [address] documented as of this encounter Visit Diagnoses Diagnosis Primary insomnia Persistent disorder of initiating or maintaining sleep documented in this encounter Additional Health Concerns Infection Onset Date Last Indicated Resolved Time COVID - 19 09/30/2024 09/30/2024 09/30/2024 1:30 PM SMALL ANIMAL VETERINARIAN Respiratory Rule-Out 09/30/2024 09/30/2024 024 1:30 PM SMALL ANIMAL VETERINARIAN Assessment Noted Time PHQ-9 Depression Total Score: 0 12/14/19 23 11:02 AM SMALL ANIMAL VETERINARIAN documented as of this encounter Care Teams Buttoner Relationship Specialty Start Date End Date Thong Martin MD #[address] [address] PCP - General Family Medicine 09/12/15 Carlos Gallardo MD #[address] [address] Consulting Physician Obstetrics & Gynecology 08/13/17 documented as of this encounter
--- OUTSIDE RECORDS SUMMARY | 2025-05-10 10:31 | XMS_ITS | Encounter Summary ---
Author Organization [facility] Address [address] [place] [address] Phone Care Team Providers Care Emulsion Coater Name Role Phone Thong Martin MD Primary Care Provider Carlos Gallardo MD Unavailable [phone] Reason for Visit * Reason Comments Medication Refill Encounter Details Date Type Department Care Team (Late st Contact Info) Description 06/06/2023 Refill [facility] - [place] [address]2 [place] [address] Candy Prabhakar APRN, EDITORIAL CARTOONIST #[address] [id number] Medication Refill Social History Tobacco Use Types [...] Dept 12/14/22 Office Visit Thong Martin MD [facility] 11/30/22 Office Visit Shailesh Brennan APRN, CNP [facility] 06/28/22 Office Visit Thong Martin MD [facility] Showing recent visits within past 365 days and meeting all other requirements Future Appointments No visits were found meeting these conditions. Showing future appointments within next 90 days and meeting all other requirements documented in this encounter Plan of Treatment Upcoming Encounters Date Type Department Care Team (Late st Contact Info) Description 05/28/2025 1:45 PM CDT Office Visit [facility] Medical Group - Family Medicine - [place] [address]2 [place] [address] Maren Anna, PAC [address]2 [place] [address] documented as of this encounter Visit Diagnoses Diagnosis Primary insomnia Persistent disorder of initiating or maintaining sleep documented in this encounter Additional Health Concerns Infection Onset Date Last Indicated Resolved Time COVID - 19 09/30/2024 09/30/2024 09/30/2024 1:30 PM MARKETING MANAGER HEALTH COMMUNICATIONS Respiratory Rule-Out 09/30/2024 09/30/2024 024 1:30 PM MARKETING MANAGER HEALTH COMMUNICATIONS Assessment Noted Time PHQ-9 Depression Total Score: 0 12/14/19 23 11:02 AM MARKETING MANAGER HEALTH COMMUNICATIONS documented as of this encounter Care Teams Emulsion Coater Relationship Specialty Start Date End Date Thong Martin MD #[address] [address] PCP - General Family Medicine 09/12/15 Carlos Gallardo MD #[address] [address] Consulting Physician Obstetrics & Gynecology 08/13/17 documented as of this encounter
--- OUTSIDE RECORDS SUMMARY | 2025-05-10 10:31 | XMS_ITS | Encounter Summary ---
Author Organization [facility] Address [address] [place] [address] Phone Care Team Providers Care Button Puncher Name Role Phone Thong Martin MD Primary Care Provider [phone] Carlos Gallardo MD Unavailable [phone] Reason for Visit * Reason Comments Medication Refill Encounter Details Date Type Department Care Team (Late st Contact Info) Description 12/21/2023 Refill [facility] - Family Medicine [facility] #2 [place] [address] Thong Martin MD #[address] [address] Medication Refill Social History Tobacco Use Types [...] Dept 08/15/23 Office Visit Candy Prabhakar APRN, OXYGEN EQUIPMENT AIDE [facility] 06/26/23 Office Visit Shailesh Brennan APRN, [facility] 06/13/23 Office Visit Thong Martin MD [facility] Showing recent visits within past 365 days and meeting all other requirements Future Appointments Date Type Provider Dept 01/07/24 Appointment Thong Martin MD [facility] [place] Showing future appointments within next 90 days and meeting all other requirements CAL PLANNER documented in this encounter Plan of Treatment Upcoming Encounters Date Type Department Care Team (Late st Contact Info) Description 05/28/2025 1:45 PM CDT Office Visit [facility] - [place] [address] [place] [address] Maren Anna PAC [address] [place] [address] documented as of this encounter Visit Diagnoses Diagnosis Encounter for long-term (current) use of medications Encounter for long-term (current) use of other medications documented in this encounter Additional Health Concerns Infection Onset Date Last Indicated Resolved Time COVID - 19 09/30/2024 09/30/2024 09/30/2024 1:30 PM MEDICAL PLANNER Respiratory Rule-Out 09/30/2024 09/30/2024 024 1:30 PM MEDICAL PLANNER Assessment Noted Time PHQ-9 Depression Total Score: 0 12/14/19 23 11:02 AM MEDICAL PLANNER documented as of this encounter Care Teams Button Puncher Relationship Specialty Start Date End Date Thong Martin MD [address]2 [facility] [address] [place] [address] PCP - General Family Medicine 09/12/15 Carlos Gallardo MD [address]2 [facility] [address] [place] [address] Consulting Physician Obstetrics & Gynecology 08/13/17 documented as of this encounter
--- OUTSIDE RECORDS SUMMARY | 2025-05-10 10:31 | XMS_ITS | Encounter Summary ---
Author Organization [facility] Address [address] [place] [address] Phone Care Team Providers Care Custom Car Builder Name Role Phone Thong Martin MD Primary Care Provider [phone] Carlos Gallardo MD Unavailable [phone] Reason for Visit * Reason Comments Medication Refill Encounter Details Date Type Department Care Team (Late st Contact Info) Description 09/02/2023 Refill [facility] - Family Medicine [facility] #2 [place] [address] Thong Martin MD #[address] [address] Medication Refill Social History Tobacco Use Types [...] Refills: 0 Signed by: Thong Martin MD HOP documented in this encounter Plan of Treatment Upcoming Encounters Date Type Department Care Team (Late st Contact Info) Description 05/28/2025 1:45 PM CDT Office Visit [facility] - Family [facility] #2 [place] [address] Maren Anna PAC [address] [place] [address] documented as of this encounter Visit Diagnoses Diagnosis Encounter for long-term (current) use of medications Encounter for long-term (current) use of other medications documented in this encounter Additional Health Concerns Infection Onset Date Last Indicated Resolved Time COVID - 19 09/30/2024 09/30/2024 09/30/2024 1:30 PM BOAT HOP Respiratory Rule-Out 09/30/2024 09/30/2024 024 1:30 PM BOAT HOP Assessment Noted Time PHQ-9 Depression Total Score: 0 12/14/19 23 11:02 AM BOAT HOP documented as of this encounter Care Teams Custom Car Builder Relationship Specialty Start Date End Date Thong Martin MD #[address] [address] PCP - General Family Medicine 09/12/15 Carlos Gallardo MD [address] [address] Consulting Physician Obstetrics & Gynecology 08/13/17 documented as of this encounter
--- OUTSIDE RECORDS SUMMARY | 2025-05-10 10:31 | XMS_ITS | Encounter Summary ---
Author Organization [facility] Address [address] [place] [address] Phone Care Team Providers Care Die Cleaner Name Role Phone Thong Martin MD Primary Care Provider [phone] Carlos Gallardo MD Unavailable [phone] Reason for Visit * Reason Comments Medication Refill Encounter Details Date Type Department Care Team (Late st Contact Info) Description 02/24/2023 Refill [facility] Family Medicine [facility] #2 [place] [address] Thong Martin MD #[address] [address] Medication Refill Social History Tobacco Use Types [...] Telephone Encounter - Allie Fitch RN - 02/25/2023 12:26 PM CDT PDMP [...] Dept 12/14/22 Office Visit Th[facility] MD [facility] 11/30/22 Office Visit Shailesh Brennan APRN, METALLURGICAL SPECIALIST [facility] 06/28/22 Office Visit Thong Martin MD [facility] 04/09/22 Office Visit Candy Prabhakar APRN, METALLURGICAL SPECIALIST [facility] 03/01/22 Office Visit Maren Anna PAC [facility] Showing recent visits within past 365 days and meeting all other requirements Future Appointments No visits were found meeting these conditions. Showing future appointments within next 90 days and meeting all other requirements documented in this encounter Plan of Treatment Upcoming Encounters Date Type Department Care Team (Late st Contact Info) Description 05/28/2025 1:45 PM CDT Office Visit [facility] Group - Family Medicine [facility] #2 [place] [address] Maren Anna PAC [address]2 [place] [address] documented as of this encounter Visit Diagnoses Diagnosis Primary insomnia Persistent disorder of initiating or maintaining sleep documented in this encounter Additional Health Concerns Infection Onset Date Last Indicated Resolved Time COVID - 19 09/30/2024 09/30/2024 09/30/2024 1:30 PM DISTANCE LEARNING UNIT LEADER Respiratory Rule-Out 09/30/2024 09/30/2024 024 1:30 PM DISTANCE LEARNING UNIT LEADER Assessment Noted Time PHQ-9 Depression Total Score: 0 12/14/19 23 11:02 AM DISTANCE LEARNING UNIT LEADER documented as of this encounter Care Teams Die Cleaner Relationship Specialty Start Date End Date Thong Martin MD [address] [address] PCP - General Family Medicine 09/12/15 Carlos Gallardo MD [address] [address] Consulting Physician Obstetrics & Gynecology 08/13/17 documented as of this encounter
--- OUTSIDE RECORDS SUMMARY | 2025-05-10 10:31 | XMS_ITS | Clinical Summary ---
Author Organization [facility] Address [address] [place] [address] Phone Care Team Providers Care Supervisor Nuclear Medicine Name Role Phone Thong Martin MD Primary Care Provider [phone] Carlos Gallardo MD Unavailable [phone] Allergies Active Allergy Reactions Criticality Noted Date Comments Paroxetine Hcl Nausea 05/03/2020 07/20/21-no longer an issue-currently taking Can take the 37.5 ER Not 40 mg Medications albuterol 108 (90 Base) MCG/ACT Aerosol SolutionIndicat ions:Mild intermittent reactive airway disease with acute exacerbation take 2 Puffs by inhalation every 4 hours as needed for Wheezing or Cough. 18 g 1 06/26/20 23 Active omeprazole (PriLOSEC) 40 MG CAPSULE DELAYED RELEASE Take 40 mg by mouth daily. 01/01/20 24 Active Lo Loestrin Fe 1 MG-10 MCG / 10 MCG Tablet 11/20/19 24 Active DULoxetine (Cymbalta) [address] Particles Take 1 Capsule by mouth daily. 30 Capsule 3 04/14/20 24 Active albuterol 108 (90 Base) MCG/ACT Aerosol Solution take 1-2 Puffs by inhalation every 4 hours as needed for Cough. 18 g 06/02/20 24 Active ondansetron (ZOFRAN) 4 MG Tablet TAKE 1 TABLET BY MOUTH EVERY 8 HOURS NEEDED FOR NAUSEA 30 Tablet 11/25/19 25 Active promethazine (PHENERGAN) 12.5 MG TabletIndicatio ns:Post-traumat ic headache, not intractable, unspecified chronicity pattern TAKE 1 TABLET BY MOUTH FOUR TIMES DAILY NEEDED FOR NAUSEA(SECOND LINE) FOR UP TO 10 DAYS 40 Tablet 12/26/19 25 Active PARoxetine CR (PAXIL-CR) 37.5 MG TABLET SR 24 HR TAKE 1 TABLET BY MOUTH DAILY 90 Tablet 1 01/17/20 25 Active methylPREDNISol one (MEDROL DOSPACK) 4 MG Tablet Therapy Pack Use as per instructions on package. 1 Tablet 04/21/20 25 Active ALPRAZolam (XANAX) 1 MG TabletIndicatio ns:Encounter for long-term (current) use of medications TAKE 1 TABLET BY MOUTH THREE TIMES DAILY NEEDED FOR SLEEP 30 Tablet 05/02/20 25 Active ALPRAZolam (XANAX) 1 MG TabletIndicatio ns:Encounter for long-term (current) use of medications TAKE 1 TABLET BY MOUTH THREE TIMES DAILY NEEDED FOR SLEEP 30 Tablet 04/02/20 25 2024 Discontinued SUMAtriptan-Nap roxen Sodium (Treximet) 85-500 MG Tablet Take 1 Tablet by mouth daily as needed for Other (migraine) for up to 30 days. 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 Resolved Problems Problem Noted Date Diagnosed Date Resolved Date Bronchitis 06/08/2016 11/30/2020 Earache, referred 11/30/2020 Encounters Date Type Department Care Team Description 04/28/2025 Refill [facility] #[address] [place] [address] Thong Martin MD Medication Refill [facility] [place] [address] Thong Martin MD Medication Refill 04/21/20[facility] [address] [place] [address] Thong Martin MD Advice Only; Sinus Pain; Nasal Congestion 04/08/2025 Nurse Triage [facility] [address] [place] [address] Thong Martin MD Headache 04/01/2025 [facility] [place] [address] Thong Martin MD Medication Refill 02/25/2025 [facility] [place] [address] Thong Martin MD Medication Refill 02/19/2025 Refill [facility] #[address] [place] [address] Thong Martin MD Medication Refill from Last [...] = 0.6 oz pur e alcohol) rarely [facility] Utilities Answer Date Recorded In the past 12 months has [employer], gas, oil, or water company threatened to shut off services in your home? No 07/16/2024 Social Connection and Isolation Panel Answer Date Recorded In a typical week, how many times do you talk on the phone with family, friends, or neighbors? More than three times a week 07/16/2024 How often do you get togethe r with friends or relatives? Three times a week 07/16/2024 How often do you attend chur ch or taoist services? Never 07/16/2024 Do you belong to any clubs o r organizations such as adventist groups, unions, fraternal or athletic groups, or [...] Total Score - Questions 1-9 0 09/20 [facility] [place] of Occupat ional Health - Occupational Stress [...] place to sleep or slept in a mcc (including now)? No 02/11/2024 Housing Stability Vital Sign Answer Tomás e Recorded In the last 12 months, was t here a time when you were not able to pay the mortgage or rent on time? No 07/16/2024 In the past 12 months, how m any times have you moved where you were living? 0 07/16/2024 At any time in the past 12 m [facility], were you homeless or living in a mcc (including now)? No 07/16/2024 Education Answer Date [...] Comments Blood Pressure 122/70 09/30/2024 1:04 PM TEACHER EMOTIONALLY IMPAIRED Pulse 83 09/30/2024 1:04 PM TEACHER EMOTIONALLY IMPAIRED Temperature 36.7 C (98.1 F) 09/30/2024 1:04 PM TEACHER EMOTIONALLY IMPAIRED Respiratory Rate 18 09/30/2024 1:04 PM TEACHER EMOTIONALLY IMPAIRED Oxygen Saturation 99% 09/30/2024 1:04 PM TEACHER EMOTIONALLY IMPAIRED Inhaled Oxygen Concentration - - Weight 57.6 kg (127 lb) 09/30/2024 1:04 PM TEACHER EMOTIONALLY IMPAIRED Height 154.9 cm (5' 1) 09/30/2024 1:04 PM TEACHER EMOTIONALLY IMPAIRED Body Mass Index 24 09/30/2024 1:04 PM TEACHER EMOTIONALLY IMPAIRED Plan of Treatment Upcoming Encounters Date Type Department Care Team (Late st Contact Info) Description 05/28/2025 1:45 PM CDT Office Visit [facility] - [facility] [address] [place] [address] Shoshana Maren Diez, PAC #[address] [place] [address] Health Maintenance Due Date Last Done Comments Hepatitis C Virus (HCV) Screening 1992 Human Papillomavirus (HPV) Immunization (1 - 3-dose series) 01/11/2007 Hepatitis B Immunization (1 of 3 - 19+ 3-dose series) 01/11/2011 HPV/Cotest 01/11/2022 Td Immunization Every 10 Yea rs (Adults With 1 Tdap) 02/17/2024 02/16/2014 SARS-COV-2 Immunization ( season) 2024 Cervical Cancer Screening (CCS) 03/01/2025 Pap Smear 03/01/2025 03/01/2022, 09/09/2016 Influenza Immunization (#1) 06/21/202507/21, 08/18/2014 Respiratory Syncytial Virus (RSV) Immunization (Adult) (1 - 1-dose 75+ series) 01/11/2067 Meningococcal Immunization (ACWY) Aged Out No longer eligible b ased on patient's age to complete this topic Pneumococcal Immunization Combined Aged Out No longer eligible b ased on patient's age to complete this topic Rotavirus Immunization Aged Out No lo nger eligible based on patient's age to complete this topic Procedures Procedure Name Priority Date/Time Associated Diagnosis Comments PATHOLOGY CYTOLOGY ORTHODONTIST Routine 09/09/2016 from Last 3 Months or Most Recently Relevant to Health Maintenance Results * PATHOLOGY CYTOLOGY ORTHODONTIST (09/09/2016) Specimen of unknown material (specimen) us Not On File Provider PATHOLOGY/CYTOLOGY ORDERABL ES Final Result from Last 3 Months or Most Recently Relevant to Health Maintenance Insurance [facility] Care Teams Supervisor Nuclear Medicine Relationship Specialty Start Date End Date Thong Martin MD #[address] [address] PCP - General Family Medicine 09/12/15 Carlos Gallardo MD #[address] [address] Consulting Physician Obstetrics & Gynecology 08/13/17
--- OUTSIDE RECORDS SUMMARY | 2025-05-10 10:31 | XMS_ITS | Encounter Summary ---
Author Organization [facility] Address [address] [place] [address] Phone Care Team Providers Care Doctor Of Optometry Name Role Phone Thong aMrtin MD Primary Care Provider [phone] Carlos Gallardo MD Unavailable [phone] Reason for Visit * Reason Comments Medication Refill Encounter Details Date Type Department Care Team (Late st Contact Info) Description 01/14/2022 Refill [facility] - Family Medicine [facility] #2 [place] [address] Thong Martin MD #[address] [address] Medication Refill Social History Tobacco Use Types [...] want an appointment since she went to [facility] to see a different Doctor and [...] Dept 09/18/21 Office Visit Maren Anna PAC [facility] [place] 07/21/21 Office Visit Thong Martni MD [facility] Showing recent visits within past 365 days and meeting all other requirements Future Appointments No visits were found meeting these conditions. Showing future appointments within next 90 days and meeting all other requirements documented in this encounter Plan of Treatment Upcoming Encounters Date Type Department Care Team (Late st Contact Info) Description 05/28/2025 1:45 PM CDT Office Visit [facility] Group - Family Medicine - [place] #[address] [place] [address] Maren Anna PAC #2 [place] [address] documented as of this encounter Visit Diagnoses Diagnosis Anxiety Anxiety state, unspecified documented in this encounter Additional Health Concerns Infection Onset Date Last Indicated Resolved Time COVID - 19 09/30/2024 09/30/2024 09/30/2024 1:30 PM INTERNET ARCHITECT Respiratory Rule-Out 09/30/2024 09/30/2024 024 1:30 PM INTERNET ARCHITECT Assessment Noted Time PHQ-9 Depression Total Score: 0 11/30/19 21 2:04 PM INTERNET ARCHITECT documented as of this encounter Care Teams Doctor Of Optometry Relationship Specialty Start Date End Date Thong Martin MD #[address] [address] PCP - General Family Medicine 09/12/15 Carlos Gallardo MD #[address] [address] Consulting Physician Obstetrics & Gynecology 08/13/17 documented as of this encounter
--- OUTSIDE RECORDS SUMMARY | 2025-05-10 10:31 | XMS_ITS | Encounter Summary ---
Author Organization [facility] Address [address] [place] [address] Phone Care Team Providers Care Arabic Linguist Name Role Phone Thong Martin MD Primary Care Provider [phone] Carlos Gallardo MD Unavailable [phone] Reason for Visit * Reason Comments Medication Refill Encounter Details Date Type Department Care Team (Late st Contact Info) Description 02/03/2024 Refill [facility] - Family Medicine - [place] #2 [place] [address] Candy Prabhakar APRN, GRAIN ROASTER #[address] [id number] Medication Refill Social History Tobacco Use Types [...] Dept 08/15/23 Office Visit Candy Prabhakar APRN, GRAIN ROASTER [facility] Showing recent visits within past 182 days [...] Visit [facility] [place] #2 [place] [address] Maren Anna PAC #2 [place] [address] documented as of this encounter Visit Diagnoses Not on filedocumented in this encounter Additional Health Concerns Infection Onset Date Last Indicated Resolved Time COVID - 19 09/30/2024 09/30/2024 09/30/2024 1:30 PM DIRECTOR OF MARKET RESEARCH Respiratory Rule-Out 09/30/2024 09/30/2024 024 1:30 PM DIRECTOR OF MARKET RESEARCH Assessment Noted Time PHQ-9 Depression Total Score: 0 12/14/19 23 11:02 AM DIRECTOR OF MARKET RESEARCH documented as of this encounter Care Teams Arabic Linguist Relationship Specialty Start Date End Date Thong Martin MD #2 [facility] [address] [place] [address] PCP - General Family Medicine 09/12/15 Carlos Gallardo MD #[address] [address] Consulting Physician Obstetrics & Gynecology 08/13/17 documented as of this encounter
--- OUTSIDE RECORDS SUMMARY | 2025-05-10 10:31 | XMS_ITS | Encounter Summary ---
Author Organization [facility] Address [address] [place] [address] Phone Care Team Providers Care Extruder Name Role Phone Thong Martin MD Primary Care Provider [phone] Carlos Gallardo MD Unavailable [phone] Reason for Visit * Reason Comments Medication Refill Encounter Details Date Type Department Care Team (Late st Contact Info) Description 08/12/2023 [facility]ill [facility] #2 [place] [address] Thong Martin MD [address] [address] Medication Refill Social History Tobacco Use Types [...] Dept 06/26/23 Office Visit Shailesh Brennan APRN, CNP [facility] 06/13/23 Office Visit Thong Martin MD [facility] [place] 12/14/22 Office Visit Thong Martin MD [facility] 11/30/22 Office Visit Shailesh Brennan APRN, SORAYA [facility] Showing recent visits within past 365 days [...] Group - Family Medicine - [place] #2 [place] [address] Maren Anna PAC [address]2 [place] [address] documented as of this encounter Visit Diagnoses Diagnosis Encounter for long-term (current) use of medications Encounter for long-term (current) use of other medications documented in this encounter Additional Health Concerns Infection Onset Date Last Indicated Resolved Time COVID - 19 09/30/2024 09/30/2024 09/30/2024 1:30 PM ORTHOPEDIC NURSE Respiratory Rule-Out 09/30/2024 09/30/2024 024 1:30 PM ORTHOPEDIC NURSE Assessment Noted Time PHQ-9 Depression Total Score: 0 12/14/19 23 11:02 AM ORTHOPEDIC NURSE documented as of this encounter Care Teams Extruder Relationship Specialty Start Date End Date Thong Martin MD [address] [address] PCP - General Family Medicine 09/12/15 Carlos Gallardo MD [address] [address] Consulting Physician Obstetrics & Gynecology 08/13/17 documented as of this encounter
--- OUTSIDE RECORDS SUMMARY | 2025-05-10 10:31 | XMS_ITS | Encounter Summary ---
Author Organization [facility] Address [address] [place] [address] Phone Care Team Providers Care Financial Assistance Specialist Name Role Phone Thong Martin MD Primary Care Provider [phone] Carlos Gallardo MD Unavailable [phone] Reason for Visit * Reason Comments Medication Refill Encounter Details Date Type Department Care Team (Late st Contact Info) Description 02/07/2024 Refill [facility] Medical Group - Family Medicine [facility] #2 [place] [address] Thong Martin MD [address] [address] Medication Refill Social History Tobacco Use Types Packs/Day Years Used Date Smoking Tobacco: Never Smokeless Tobacco: Never Alcohol Use Standard Drinks/Week Comments Yes 0 (1 standard drink = 0.6 oz pur e alcohol) rarely [facility] Utilities Answer Date Recorded In the past 12 months has [employer] electric, gas, oil, or water company threatened to shut off services in your home? No 02/11/2024 Social Connection and Isolation Panel Answer Date Recorded In a typical week, how many times do you talk on the phone with family, friends, or neighbors? More than three times a week 02/11/2024 How often do you get togethe r with friends or relatives? Three times a week 02/11/2024 How often do you attend [facility] or presybeterian services? Never 02/11/2024 Do you belong to any clubs o r organizations such as pentecostal groups, unions, fraternal or athletic groups, or [...] Total Score - Questions 1-9 0 01/20 [facility] - Occupational [...] Dept 08/15/23 Office Visit Candy Prabhakar APRN, COMMERCIAL CREDIT REVIEWER [facility] 06/26/23 Office Visit Shailesh Brennan APRN, COMMERCIAL CREDIT REVIEWER [facility] 06/13/23 Office Visit Thong Martin MD [facility] Showing recent visits within past 365 days and meeting all other requirements Future Appointments No visits were found meeting these conditions. Showing future appointments within next 90 days and meeting all other requirements documented in this encounter Plan of Treatment Upcoming Encounters Date Type Department Care Team (Late st Contact Info) Description 05/28/2025 1:45 PM CDT Office Visit [facility] Medical Group - Family [facility] #2 [place] [address] Maren Anna PAC [address]2 [place] [address] documented as of this encounter Visit Diagnoses Diagnosis Encounter for long-term (current) use of medications Encounter for long-term (current) use of other medications documented in this encounter Additional Health Concerns Infection Onset Date Last Indicated Resolved Time COVID - 19 09/30/2024 09/30/2024 09/30/2024 1:30 PM CARE TECHNICIAN Respiratory Rule-Out 09/30/2024 09/30/2024 024 1:30 PM CARE TECHNICIAN Assessment Noted Time PHQ-9 Depression Total Score: 0 12/14/19 23 11:02 AM CARE TECHNICIAN documented as of this encounter Care Teams Financial Assistance Specialist Relationship Specialty Start Date End Date Thong Martin MD [address] [address] PCP - General Family Medicine 09/12/15 Carlos Gallardo MD #[address] [address] Consulting Physician Obstetrics & Gynecology 08/13/17 documented as of this encounter
--- OUTSIDE RECORDS SUMMARY | 2025-05-10 10:31 | XMS_ITS | Encounter Summary ---
Author Organization [facility] Address [address] [place] [address] Phone Care Team Providers Care Computer Systems Manager Name Role Phone Thong Martin MD Primary Care Provider [phone] Carlos Gallardo MD Unavailable [phone] Reason for Visit * Reason Comments Medication Refill Encounter Details Date Type Department Care Team (Late st Contact Info) Description 02/07/2024 Refill [facility] Medical Group - Family Medicine [facility] #2 [place] [address] Thong Martin MD #[address] [address] Medication Refill Social History Tobacco Use Types Packs/Day Years Used Date Smoking Tobacco: Never Smokeless Tobacco: Never Alcohol Use Standard Drinks/Week Comments Yes 0 (1 standard drink = 0.6 oz pur e alcohol) rarely [facility] Utilities Answer Date Recorded In the past 12 months has [employer] electric, gas, oil, or water company threatened [...] week 02/11/2024 How often do you attend [facility] or mosque services? Never 02/11/2024 Do you belong to any clubs o r organizations such as baptism groups, unions, fraternal or athletic groups, or [...] Score - Questions 1-9 0 01/20 [facility] of Occupat ional Health - [...] Visit [facility] #2 [place] [address] Maren Anna PAC [address]2 [place] [address] documented as of this encounter Visit Diagnoses Diagnosis Primary insomnia Persistent disorder of initiating or maintaining sleep documented in this encounter Additional Health Concerns Infection Onset Date Last Indicated Resolved Time COVID - 19 09/30/2024 09/30/2024 09/30/2024 1:30 PM RESIDENT ENGINEER Respiratory Rule-Out 09/30/2024 09/30/2024 024 1:30 PM RESIDENT ENGINEER Assessment Noted Time PHQ-9 Depression Total Score: 0 12/14/19 23 11:02 AM RESIDENT ENGINEER documented as of this encounter Care Teams Computer Systems Manager Relationship Specialty Start Date End Date Thong Martin MD #[address] [address] PCP - General Family Medicine 09/12/15 Carlos Gallardo MD #[address] [address] Consulting Physician Obstetrics & Gynecology 08/13/17 documented as of this encounter
--- OUTSIDE RECORDS SUMMARY | 2025-05-10 10:31 | XMS_ITS | Encounter Summary ---
Author Organization [facility] Address [address] [place] [address] Phone Care Team Providers Care Pharmacy District Manager Name Role Phone Thong Martin MD Primary Care Provider [phone] Carlos Gallardo MD Unavailable [phone] Reason for Visit * Reason Comments Medication Refill Encounter Details Date Type Department Care Team (Late st Contact Info) Description 03/08/2024 Refill [facility] Medical Group - Family Medicine [facility] #2 [place] [address] Thong Martin MD #[address] [address] Medication Refill Social History Tobacco Use Types Packs/Day Years Used Date Smoking Tobacco: Never Smokeless Tobacco: Never Alcohol Use Standard Drinks/Week Comments Yes 0 (1 standard drink = 0.6 oz pur e alcohol) rarely [facility] Utilities Answer Date Recorded In the past 12 months has [employer] electric, gas, oil, or water company threatened [...] week 02/11/2024 How often do you attend [facility] or uatsdin services? Never 02/11/2024 Do you belong to any clubs o r organizations such as scientology groups, unions, fraternal or athletic groups, or [...] Total Score - Questions 1-9 0 01/20 [facility] Occupat ional Health - [...] place to sleep or slept in a fci (including now)? No 02/11/2024 Education Answer Date [...] 08/15/23 Office Visit Candy Prabhakar APRN, SORAYA [facility] 06/26/23 Office Visit Shailesh Brennan APRN, SORAYA [facility] 06/13/23 Office Visit Thong Martin MD [facility] Showing recent visits within past 365 [...] Office Visit [facility] - Family [facility] #2 [place] [address] Maren Anna, REN[place] [address] [place] [address] documented as of this encounter Visit Diagnoses Diagnosis Encounter for long-term (current) use of medications Encounter for long-term (current) use of other medications documented in this encounter Additional Health Concerns Infection Onset Date Last Indicated Resolved Time COVID - 19 09/30/2024 09/30/2024 09/30/2024 1:30 PM CLINICAL LABORATORY MANAGER Respiratory Rule-Out 09/30/2024 09/30/2024 024 1:30 PM CLINICAL LABORATORY MANAGER Assessment Noted Time PHQ-9 Depression Total Score: 0 02/11/20 24 1:26 PM CDT documented as of this encounter Care Teams Pharmacy District Manager Relationship Specialty Start Date End Date Thong Martin MD #[address] [address] PCP - General Family Medicine 09/12/15 Carlos Gallardo MD #[address] [address] Consulting Physician Obstetrics & Gynecology 08/13/17 documented as of this encounter
--- OUTSIDE RECORDS SUMMARY | 2025-05-10 10:31 | XMS_ITS | Clinical Summary ---
Author Organization [facility] [employer] Address [address] [place] [address] Care Team Providers Care Broadcast Technician Name Role Phone Unavailable Primary Care Provider Unavailabl e Source Comments [facility],non-owned Affiliates and Associated Physician Practices is amultiple site organization consisting of ambulatory clinics and hospital sitesin [place], [place], [place] and [place]. This disclosure is being madepursuant to the Care Everywhere program and may not contain all information available regarding this patient. Last updated 18.[facility] [employer] Social History Tobacco Use Types Packs/Day Years Used Date Smoking Tobacco: Never Assessed Comments Unknown Sex and Gender Information Value Date Recorded Sex Assigned at Not on file Legal Sex Female 6:06 PM SILVERER Gender Identity Not on file Sexual Orientation Not on file Plan of Treatment Health Maintenance Due Date Last Done Comments HIV SCREENING 01/11/2007 HEPATITIS C SCREENING 01/07/2010 DTAP/TDAP/TD VACCINES (1 - Tdap) 01/11/2011 HEPATITIS B VACCINE (1 of 3 - 19+ 3-dose series) 01/11/2011 HPV VACCINE (1 - 3-dose SCDM series) 01/11/2019 COVID-19 VACCINE (1 - 2023-2 5 season) 2024 DEPRESSION SCREENING 10/21/2024 INFLUENZA VACCINE (#1) 2025 ZOSTER VACCINE (1 of 2) 01/11/2042 [...] patient's age to complete this topic Insurance [facility]
--- OUTSIDE RECORDS SUMMARY | 2025-05-10 10:31 | XMS_ITS ---
Author Organization [facility] Address [address] [place], [place] [address] Care Team Providers Care Door Clamper Name Role Phone Conner Saunders DO [phone] REASON FOR VISIT egd-ulcer @1p pt aware Encounters Encounter Location Date Provider Diagnosis [facility] [address] [place] [address] 11/06/2024 Conner Saunders Plan Of Treatment No Information Progress Notes * SAUL COCHRAN ADOB:1990 (35 yo F)Acc No.[id number]:11/06/2024 Patient: Lennie CRISTINABeauSAUL Provider: Mihaela Saunders DO :1990 A ge:34 Y S ex:Female Date:11/06/2024 Address[facility] [address] [facility] * Billing Information: * Visit Code: * Procedure Codes: * Electronic signature of Stewart Saunders DO, [id number] on 05/10/2025 at 10:31 AM CDT Sign off status: Pending * Provider: Mihaela Saunders DO Date: 0 11/06/2024 Generated for Paulette garcia/Derrell/eTamansmitting on: 0 05/10/2025 10:31 AM CDT
--- OUTSIDE RECORDS SUMMARY | 2025-05-10 10:31 | XMS_ITS | Encounter Summary ---
Author Organization [facility] Address [address] [place] [address] Phone Care Team Providers Care Assembler And Tester Electronics Name Role Phone Thong Martin MD Primary Care Provider [phone] Carlos Gallardo MD Unavailable [phone] Reason for Visit * Reason Comments Medication Refill Encounter Details Date Type Department Care Team (Late st Contact Info) Description 09/03/2022 Refill [facility] #2 [place] [address] Thong Martin MD #[address] [address] Medication Refill Social History Tobacco Use Types [...] Needs apt with PCP to discuss need. OGY PROFESSOR documented in this encounter Plan of Treatment Upcoming Encounters Date Type Department Care Team (Late st Contact Info) Description 05/28/2025 1:45 PM CDT Office Visit [facility] Medical Group - Family [facility] #2 [place] [address] Maren Anna PAC [address]2 [place] [address] documented as of this encounter Visit Diagnoses Not on filedocumented in this encounter Additional Health Concerns Infection Onset Date Last Indicated Resolved Time COVID - 19 09/30/2024 09/30/2024 09/30/2024 1:30 PM ECOLOGY PROFESSOR Respiratory Rule-Out 09/30/2024 09/30/2024 024 1:30 PM ECOLOGY PROFESSOR Assessment Noted Time PHQ-9 Depression Total Score: 0 01/24/20 22 12:00 PM CDT documented as of this encounter Care Teams Assembler And Tester Electronics Relationship Specialty Start Date End Date Thong Martin MD #[address] [address] PCP - General Family Medicine 09/12/15 Carlos Gallardo MD #[address] [address] Consulting Physician Obstetrics & Gynecology 08/13/17 documented as of this encounter
--- OUTSIDE RECORDS SUMMARY | 2025-05-10 10:31 | XMS_ITS | Encounter Summary ---
Author Organization [facility] Address [address] [place] [address] Phone Care Team Providers Care Relations Liaison Name Role Phone Thong Martin MD Primary Care Provider [phone] Carlos Gallardo MD Unavailable [phone] Reason for Visit * Reason Comments Medication Refill Encounter Details Date Type Department Care Team (Late st Contact Info) Description 04/12/2024 Refill [facility] Medical Group - Family Medicine [facility] #2 [place] [address] Thong Martin MD #[address] [address] Medication Refill Social History Tobacco Use Types Packs/Day Years Used Date Smoking Tobacco: Never Smokeless Tobacco: Never Alcohol Use Standard Drinks/Week Comments Yes 0 (1 standard drink = 0.6 oz pur e alcohol) rarely [facility] Utilities Answer Date Recorded In the past 12 months has [employer] electric, gas, oil, or water company threatened [...] week 02/11/2024 How often do you attend [facility] or taoist services? Never 02/11/2024 Do you belong to any clubs o r organizations such as congregational groups, unions, fraternal or athletic groups, or [...] Total Score - Questions 1-9 0 01/20 [facility] of Occupat ional Health - [...] place to sleep or slept in a penitentiary (including now)? No 02/11/2024 Education Answer Date [...] Dept 03/24/24 Office Visit Sophy Landon DO [facility] 02/11/24 Office Visit Thong Martin MD [facility] 08/15/23 Office Visit Candy Prabhakar APRN, SURGICAL INSTRUMENTS INSPECTOR [facility] 06/26/23 Office Visit Shailesh Brennan APRN, SORAYA [facility] 06/13/23 Office Visit Thong Martin MD [facility] Showing recent visits within past 365 days and meeting all other requirements Future Appointments Date Type Provider Dept 05/05/24 Appointment Sophy Landon, [facility] Showing future appointments within next 90 days and meeting all other requirements documented in this encounter Plan of Treatment Upcoming Encounters Date Type Department Care Team (Late st Contact Info) Description 05/28/2025 1:45 PM CDT Office Visit [facility] - Family Medicine - [place] #2 [place] [address] Maren Anna PAC [address]2 [place] [address] documented as of this encounter Visit Diagnoses Diagnosis Encounter for long-term (current) use of medications Encounter for long-term (current) use of other medications documented in this encounter Additional Health Concerns Infection Onset Date Last Indicated Resolved Time COVID - 19 09/30/2024 09/30/2024 09/30/2024 1:30 PM VENDETTE Respiratory Rule-Out 09/30/2024 09/30/2024 024 1:30 PM VENDETTE Assessment Noted Time PHQ-9 Depression Total Score: 0 02/11/20 24 1:26 PM CDT documented as of this encounter Care Teams Relations Liaison Relationship Specialty Start Date End Date Thong Martin MD #[address] [address] PCP - General Family Medicine 09/12/15 Carlos Gallardo MD #[address] [address] Consulting Physician Obstetrics & Gynecology 08/13/17 documented as of this encounter
--- OUTSIDE RECORDS SUMMARY | 2025-05-10 10:31 | XMS_ITS | Encounter Summary ---
Author Organization [facility] Address [address] [place] [address] Phone Care Team Providers Care Welfare Eligibility Worker Name Role Phone Thong Martin MD Primary Care Provider [phone] Carlos Gallardo MD Unavailable [phone] Reason for Visit * Reason Comments Medication Refill Encounter Details Date Type Department Care Team (Late st Contact Info) Description 01/20/2023 Refill [facility] #2 [place] [address] Thong Martin MD #[address] [address] Medication Refill Social History Tobacco Use Types [...] Dept 12/14/22 Office Visit Thong [facility] MD [facility] 11/30/22 Office Visit Shailesh Brennan APRN, SORAYA [facility] 06/28/22 Office Visit Thong Martin MD [facility] 04/09/22 Office Visit Candy Prabhakar APRN, SORAYA [facility] 03/01/22 Office Visit Maren Anna PAC [facility] 01/26/22 Office Visit Candy Prabhakar APRN, SORAYA [facility] 01/23/22 Office Visit Thong Martin MD [facility] Showing recent visits within past 365 days and meeting all other requirements Future Appointments No visits were found meeting these conditions. Showing future appointments within next 90 days and meeting all other requirements documented in this encounter Plan of Treatment Upcoming Encounters Date Type Department Care Team (Late st Contact Info) Description 05/28/2025 1:45 PM CDT Office Visit [facility] Medical Group - Family Medicine - [place] #2 [place] [address] Maren Anna PAC [address]2 [place] [address] documented as of this encounter Visit Diagnoses Diagnosis Primary insomnia Persistent disorder of initiating or maintaining sleep documented in this encounter Additional Health Concerns Infection Onset Date Last Indicated Resolved Time COVID - 19 09/30/2024 09/30/202409/3009/30/2024 1:3 0 PM LETTERPRESS PRINTING MACHINIST Respiratory Rule-Out 09/30/2024 09/30/2024 024 1:30 PM LETTERPRESS PRINTING MACHINIST Assessment Noted Time PHQ-9 Depression Total Score: 0 12/14/19 11:02 AM LETTERPRESS PRINTING MACHINIST documented as of this encounter Care Teams Welfare Eligibility Worker Relationship Specialty Start Date End Date Thong Martin MD [address] [address] PCP - General Family Medicine 09/12/15 Carlos Gallardo MD [address] [address] Consulting Physician Obstetrics & Gynecology 08/13/17 documented as of this encounter
--- OUTSIDE RECORDS SUMMARY | 2025-05-10 10:31 | XMS_ITS | Encounter Summary ---
Author Organization [facility] Address [address] [place] [address] Phone Care Team Providers Care Firmware Test Engineer Name Role Phone Thong Martin MD Primary Care Provider [phone] Carlos Gallardo MD Unavailable [phone] Reason for Visit * Reason Comments Medication Refill Encounter Details Date Type Department Care Team (Late st Contact Info) Description 02/19/2025 Refill [facility] #2 [place] [address] Thong Martin MD #[address] [address] Medication Refill Social History Tobacco Use Types Packs/Day Years Used Date Smoking Tobacco: Never Smokeless Tobacco: Never Alcohol Use Standard Drinks/Week Comments Yes 0 (1 standard drink = 0.6 oz pur e alcohol) rarely [facility] Utilities Answer Date Recorded In the past 12 months has [employer] electric, gas, oil, or water company threatened [...] week 07/16/2024 How often do you attend [facility] or jain services? Never 07/16/2024 Do you belong to [...] Total Score - Questions 1-9 0 09/20 [facility] of Occupat ional Health - [...] place to sleep or slept in a longterm (including now)? No 02/11/2024 Housing Stability Vital Sign Answer Tomás e Recorded In the last 12 months, was t here a time when you were not able to pay the mortgage or rent on time? No 07/16/2024 In the past 12 months, how m any times have you moved where you were living? 0 07/16/2024 At any time in the past 12 m onths, were you homeless or living in a longterm (including now)? No 07/16/2024 Education Answer Date [...] - Family Medicine [facility] #2 [place] [address] Maren Anna PAC [address]2 [place] [address] documented as of this encounter Visit Diagnoses Not on filedocumented in this encounter Additional Health Concerns Assessment Noted Time PHQ-9 Depression Total Score: 0 09/30/20 24 1:07 PM CORPORATE ACCOUNTANT documented as of this encounter Care Teams Firmware Test Engineer Relationship Specialty Start Date End Date Thong Martin MD #[address] [facility] [address] [place] [address] PCP - General Family Medicine 09/12/15 Carlos Gallardo MD #[address] [facility] [address] [place] [address] Consulting Physician Obstetrics & Gynecology 08/13/17 documented as of this encounter
--- OUTSIDE RECORDS SUMMARY | 2025-05-10 10:31 | XMS_ITS | Encounter Summary ---
Author Organization [facility] Address [address] [place] [address] Phone Care Team Providers Care Glove Finisher Name Role Phone Thong Martin MD Primary Care Provider [phone] Carlos Gallardo MD Unavailable [phone] Reason for Visit * Reason Comments Medication Refill Encounter Details Date Type Department Care Team (Late st Contact Info) Description 11/19/2023 [facility]ill [facility] [address]2 [place] [address] Thong Martin MD #[address] [address] Medication Refill Social History Tobacco Use Types [...] 1 mg tab was last filled 10/11/23. SMOKING MACHINE OPERATOR documented in this encounter Plan of Treatment Upcoming Encounters Date Type Department Care Team (Late st Contact Info) Description 05/28/2025 1:45 PM CDT Office Visit [facility] - Family Medicine [facility] [address]2 [place] [address] Maren Anna PAC [address]2 [place] [address] documented as of this encounter Visit Diagnoses Diagnosis Primary insomnia Persistent disorder of initiating or maintaining sleep documented in this encounter Additional Health Concerns Infection Onset Date Last Indicated Resolved Time COVID - 19 09/30/2024 09/30/2024 09/30/2024 1:30 PM PIPE SMOKING MACHINE OPERATOR Respiratory Rule-Out 09/30/2024 09/30/2024 024 1:30 PM PIPE SMOKING MACHINE OPERATOR Assessment Noted Time PHQ-9 Depression Total Score: 0 12/14/19 23 11:02 AM PIPE SMOKING MACHINE OPERATOR documented as of this encounter Care Teams Glove Finisher Relationship Specialty Start Date End Date Thong Martin MD #[address] [address] PCP - General Family Medicine 09/12/15 Carlos Gallardo MD #[address] [address] Consulting Physician Obstetrics & Gynecology 08/13/17 documented as of this encounter
--- OUTSIDE RECORDS SUMMARY | 2025-05-10 10:31 | XMS_ITS | Encounter Summary ---
Author Organization [facility] Address [address] [place] [address] Phone Care Team Providers Care Bindery Manager Name Role Phone Thong Martin MD Primary Care Provider [phone] Carlos Gallardo MD Unavailable Reason for Visit * Reason Comments Medication Refill Encounter Details Date Type Department Care Team (Late st Contact Info) Description 07/18/2024 Refill [facility] #2 [place] [address] Thong Martin MD #[address] [address] Medication Refill Social History Tobacco Use Types Packs/Day Years Used Date Smoking Tobacco: Never Smokeless Tobacco: Never Alcohol Use Standard Drinks/Week Comments Yes 0 (1 standard drink = 0.6 oz pur e alcohol) rarely [facility] Utilities Answer Date Recorded In the past 12 months has [email or web address] electric, gas, oil, or water company threatened [...] week 07/16/2024 How often do you attend [facility] or restoration services? Never 07/16/2024 Do you belong to [...] Total Score - Questions 1-9 0 05/21 [facility] - Occupational [...] No 07/16/2024 Housing Stability Vital Sign Answer Tomsá e Recorded In the last 12 months, [...] [facility] [address]2 [place] [address] Maren Anna, PAC [address] [place] [address] documented as of this encounter Visit Diagnoses Not on filedocumented in this encounter Additional Health Concerns Infection Onset Date Last Indicated Resolved Time COVID - 19 09/30/2024 09/30/2024 09/30/2024 1:30 PM SUPERVISOR REACTOR FUELING Respiratory Rule-Out 09/30/2024 09/30/2024 024 1:30 PM SUPERVISOR REACTOR FUELING Assessment Noted Time PHQ-9 Depression Total Score: 0 06/02/20 24 10:23 AM CDT documented as of this encounter Care Teams Bindery Manager Relationship Specialty Start Date End Date Thong Martin MD [address]2 [facility] [address] [place] [address] PCP - General Family Medicine 09/12/15 Carlos Gallardo MD [address] [facility] [address] [place] [address] Consulting Physician Obstetrics & Gynecology 08/13/17 documented as of this encounter
--- OUTSIDE RECORDS SUMMARY | 2025-05-10 10:31 | XMS_ITS | Encounter Summary ---
Author Organization [facility] Address [address] [place] [address] Phone Care Team Providers Care Jig Boring Machine Set Up Operator Name Role Phone Thong Martin MD Primary Care Provider [phone] Carlos Gallardo MD Unavailable [phone] Reason for Visit * Reason Comments Medication Refill Encounter Details Date Type Department Care Team (Late st Contact Info) Description 03/04/2021 Refill [facility] #2 [place] [address] Thong Martin MD #[address] [address] Medication Refill Social History Tobacco Use Types [...] Visit [facility] #2 [place] [address] Maren Anna PAC [address]2 [place] [address] documented as of this encounter Visit Diagnoses Not on filedocumented in this encounter Additional Health Concerns Infection Onset Date Last Indicated Resolved Time COVID - 19 09/18/2021 09/18/2021 10/08/2021 12:1 6 AM METAL CUTTER COVID - 19 Confirmed 09/18/2021 09/18/2021 021 12:16 AM METAL CUTTER COVID - 19 09/30/2024 09/30/2024 09/30/2024 1:30 PM METAL CUTTER Respiratory Rule-Out 09/30/2024 09/30/2024 024 1:30 PM METAL CUTTER Assessment Noted Time PHQ-9 Depression Total Score: 0 11/30/19 21 2:04 PM METAL CUTTER documented as of this encounter Care Teams Jig Boring Machine Set Up Operator Relationship Specialty Start Date End Date Thong Martin MD #[address] [address] PCP - General Family Medicine 09/12/15 Carlos Gallardo MD #[address] [address] Consulting Physician Obstetrics & Gynecology 08/13/17 documented as of this encounter
--- OUTSIDE RECORDS SUMMARY | 2025-05-10 10:31 | XMS_ITS | Encounter Summary ---
Author Organization [facility] Address [address] [place] [address] Phone Care Team Providers Care Attendant Sales Name Role Phone Thong Martin MD Primary Care Provider [phone] Carlos Gallardo MD Unavailable [phone] Reason for Visit * Reason Comments Medication Refill Encounter Details Date Type Department Care Team (Late st Contact Info) Description 09/04/2023 Refill [facility] #2 [place] [address] Thong Martin MD #[address] [address] Medication Refill Social History Tobacco Use Types [...] Shirin Burnham RN - 09/05/2023 10:24 AM MUSIC PROFESSOR Per below note, pharmacy is calling stating [...] Allen 11/30/22 Office Visit [facility]ailesh [facility] Showing recent visits within past 365 days and meeting all other requirements Future Appointments No visits were found meeting these conditions. Showing future appointments within next 90 days and meeting all other requirements C PROFESSOR * Telephone Encounter - Kaila Roland MA - 09/04/2023 12:31 PM MUSIC PROFESSOR Message left on medication refill voice mail: Heather calling in regards to script 09/02/23 Alprazolam 0.5 mg tabs Per pharmacy stated patient realized she requested the wrong dose . Patient wanted Alprazolam 1 mg tabs, pdmp 08/13/23 10 day supply Per pharmacy patient did not take the Alprazolam 0.5 mg tabs . C PROFESSOR documented in this encounter Plan of Treatment Upcoming Encounters Date Type Department Care Team (Late st Contact Info) Description 05/28/2025 1:45 PM CDT Office Visit [facility] - Family [facility] #2 [place] [address] Maren Anna, PAC [address]2 [place] [address] documented as of this encounter Visit Diagnoses Diagnosis Encounter for long-term (current) use of medications Encounter for long-term (current) use of other medications documented in this encounter Additional Health Concerns Infection Onset Date Last Indicated Resolved Time COVID - 19 09/30/2024 09/30/2024 09/30/2024 1:30 PM MUSIC PROFESSOR Respiratory Rule-Out 09/30/2024 09/30/2024 024 1:30 PM MUSIC PROFESSOR Assessment Noted Time PHQ-9 Depression Total Score: 0 12/14/19 23 11:02 AM MUSIC PROFESSOR documented as of this encounter Care Teams Attendant Sales Relationship Specialty Start Date End Date Thong Martin MD #[address] [address] PCP - General Family Medicine 09/12/15 Carlos Gallardo MD #[address] [address] Consulting Physician Obstetrics & Gynecology 08/13/17 documented as of this encounter
--- OUTSIDE RECORDS SUMMARY | 2025-05-10 10:31 | XMS_ITS | Encounter Summary ---
Author Organization [facility] Address [address] [place] [address] Phone Care Team Providers Care Resp Ther Name Role Phone Thong Martin MD Primary Care Provider [phone] Carlos Gallardo MD Unavailable [phone] Reason for Visit * Reason Comments Medication Refill Encounter Details Date Type Department Care Team (Late st Contact Info) Description 06/24/2023 Refill [facility] #2 [place] [address] Thong Martin MD #[address] [address] Medication Refill Social History Tobacco Use Types [...] Dept 06/13/23 Office Visit Thong Martin MD [facility] [place] Showing recent visits within past 182 days [...] [facility] - [place] [address] [place] [address] Maren Anna PAC [address] [place] [address] documented as of this encounter Visit Diagnoses Not on filedocumented in this encounter Additional Health Concerns Infection Onset Date Last Indicated Resolved Time COVID - 19 09/30/2024 09/30/2024 09/30/2024 1:30 PM HOOP MAKER MACHINE Respiratory Rule-Out 09/30/2024 09/30/2024 024 1:30 PM HOOP MAKER MACHINE Assessment Noted Time PHQ-9 Depression Total Score: 0 12/14/19 11:02 AM HOOP MAKER MACHINE documented as of this encounter Care Teams Resp Ther Relationship Specialty Start Date End Date Thong Martin MD [address] [address] PCP - General Family Medicine 09/12/15 Carlos Gallardo MD #[address] [address] Consulting Physician Obstetrics & Gynecology 08/13/17 documented as of this encounter
--- OUTSIDE RECORDS SUMMARY | 2025-05-10 10:31 | XMS_ITS | Encounter Summary ---
Author Organization [facility] Address [address] [place] [address] Phone Care Team Providers Care Marking Stitcher Name Role Phone Thong Martin MD Primary Care Provider [phone] Carlos Gallardo MD Unavailable [phone] Reason for Visit * Reason Comments Medication Refill Encounter Details Date Type Department Care Team (Late st Contact Info) Description 12/17/2022 Refill [facility] #2 [place] [address] Thong Martin MD #[address] [address] Medication Refill Social History Tobacco Use Types [...] Coronavirus/COVID-19? No / Unsure 12/14/2022 10:49 AM ROOFER APPLICATOR documented as of this encounter Miscellaneous Notes [...] Thong Martin MD [facility] 11/30/22 Office Visit Shailesh Brennan APRN, [facility] 06/28/22 Office Visit Thong Martin MD [facility] Showing recent visits within past 182 days and meeting all other requirements Future Appointments No visits were found meeting these conditions. Showing future appointments within next 90 days and meeting all other requirements Passed - Has an encounter in the past 6 months with a depression, anxiety, adjustment disorder, OCD, or PTSD visit diagnosis ER APPLICATOR documented in this encounter Plan of Treatment Upcoming Encounters Date Type Department Care Team (Late st Contact Info) Description 05/28/2025 1:45 PM CDT Office Visit [facility] - [place] [address] [place] [address] Maren Anna, R[place]2 [place] [address] documented as of this encounter Visit Diagnoses Not on filedocumented in this encounter Additional Health Concerns Infection Onset Date Last Indicated Resolved Time COVID - 19 09/30/2024 09/30/2024 09/30/2024 1:30 PM ROOFER APPLICATOR Respiratory Rule-Out 09/30/2024 09/30/2024 024 1:30 PM ROOFER APPLICATOR Assessment Noted Time PHQ-9 Depression Total Score: 0 12/14/19 11:02 AM ROOFER APPLICATOR documented as of this encounter Care Teams Marking Stitcher Relationship Specialty Start Date End Date Thong Martin MD [address] [address] PCP - General Family Medicine 09/12/15 Carlos Gallardo MD #[address] [address] Consulting Physician Obstetrics & Gynecology 08/13/17 documented as of this encounter
--- OUTSIDE RECORDS SUMMARY | 2025-05-10 10:32 | XMS_ITS | Referral Summary ---
Author Organization [facility] Address [address] [place] [address] Care Team Providers Care Senior Java Programmer Name Role Phone Thong Martin MD Primary Care Provider [phone] Encounters Date Type Department Care Team Description 05/07/2025 Telephone [facility] [address] [place] [address] Mahsa Marrero DO 05/07/2025 Telephone [facility] 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 Tonsillar hypertrophy 01/04/2025 Morbid [...] on file Legal Sex Female 8:43 PM CASH MANAGEMENT OFFICER Gender Identity Not on file Sexual Orientation [...] 2:19 PM CDT Height 154.9 cm (5' 1) 01/04/2025 2:19 PM CDT Body Mass Index 21.73 01/04/2025 2:19 PM CDT Plan of Treatment Not on file Procedures Procedure Name Priority Date/Time Associated Diagnosis Comments GENITAL FLUID PAP SMEAR, THIN PREP WITH HPV EVALUATION Routine 09/09/2016 6:00 PM CASH MANAGEMENT OFFICER from Last 3 Months or Most Recently Relevant to Health Maintenance Results * Genital fluid pap smear, thin prep with HPV evaluation (09/09/2016 6:00 PM CASH MANAGEMENT OFFICER) Clinical information SEE NOTE CDR HISTORICAL RESULTS [...] computer assisted technology. Genital 09/09/2016 6:00 PM CASH MANAGEMENT OFFICER Narrative CDR HISTORICAL RESULTS - 09/17/2016 6:00 AM CASH MANAGEMENT OFFICER Test performed at [facility] [address] [address] Director: SHIRLEY BOUCHER MD us Historical Provider LAB CYTOLOGY ORDERABLES F inal Result CDR HISTORICAL RESULTS from Last 3 Months or Most Recently Relevant to Health Maintenance Insurance [employer] AETNA SIG [id number] Care Teams Senior Java Programmer Relationship Specialty Start Date End Date Thong Martin MD [address] [address] PCP - General 07/12/15
--- OUTSIDE RECORDS SUMMARY | 2025-05-10 10:32 | XMS_ITS | Patient Health Record ---
Author Organization [facility] Address [address] [place], [place] [id number] Care Team Providers Care Manager Packaging Name Role Phone oCnner Saunders DO Unavailable [phone] Allergies No Known Allergies Reason For Referral No Information Medications Medication SIG (Take, Route, Frequency, Duration) Notes Start Date End Date Status ALPRAZolam 1 MG Oral 01/01/2024 Unk nown Ondansetron HCl 4 MG Oral 01/01/2024 Unknown Fluconazole 150 MG Oral 01/01/2024 Unknown Amoxicillin-Pot Clavulanate 875-125 MG Oral 01/01/2024 Unknown ProAir Digihaler 108 (90 Base) MCG/ACT [...] W/U Status Risk Notes Problem Vitamin deficiency (29961074) Vitamin deficiency, unspecified (E56.9) 4 Active confirmed Problem Obstructive sleep apnea syndrome (disorder) (11386225) Obstructive sleep apnea (adult) (pediatric) (G47.33) 4 Active confirmed Problem Gastro-esophageal reflux disease without esophagitis (473277617) Gastro-esophagea l reflux disease without esophagitis (K21.9) 4 Active confirmed Problem Intestinal malabsorption (294136244) Intestinal malabsorption, unspecified (K90.9) 4 Active confirmed Problem Post-surgical malabsorption (disorder) (821082980) Postsurgical malabsorption, 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) 4 Active confirmed Problem Family history of diabetes mellitus (488171205) Family history of diabetes mellitus (Z83.3) 4 Active confirmed Problem History of peptic ulcer (874823522) Personal history of peptic ulcer disease (Z87.11) 4 Active confirmed Problem Personal risk factor (366874412) Other specified personal risk factors, not elsewhere classified (Z91.89) 4 Active confirmed Problem History of bariatric surgical procedure (428540441) Bariatric surgery status (Z98.84) 4 Active confirmed Problem Depression (380336382) Depression, unspecified (F32.A) 4 Active confirmed Problem Body mass index 25-29 - overweight (495274763) Body mass index (BMI) 27.0-27.9, adult (Z68.27) [...] N/A Encounters Encounter Location Date Provider Diagnosis [facility] [address] [place] [address] 11/06/2024 [facility] [address] [place], [place] [id number] 10/28/2024 Conner Saunders S/P gastric bypass Z98.84 ; Nicotine use Z72.0 ; Epigastric pain R10.13 ; Gastro-esophageal reflux disease without esophagitis K21.9 ; History of bariatric surgery Z98.84 ; Nausea and vomiting in adult R11.2 and Chronic gastritis without bleeding, unspecified gastritis type K29.50 [facility] [address] [place], [place] [id number] 10/16/2024 Conner Saunders Assessments Encounter Date Diagnosis [...] Date [employer] [address] [place] [address] [id number] SAUL BOWDEN Self - patient is the insured Medical (General) History Medical History History ICD Code Problems: Depressive disorder Family history of diabetes mellitus Gastroesophageal reflux disease History of bypass of stomach History of peptic ulcer Obstructive sleep apnea syndrome , Gastroesophageal reflux dis : Yes Obesit y : Yes rod cup filler pn : Yes, , Surgical History Surgery Date(Month/Year) Lumpectomy of breast (970415106) 008 Cholecystectomy 10/21/2010 section (71406818) 10/21/2017 Esophagogastroduodenoscopy ( 55807262) Dr. Conner Saunders; [facility] 04/14/2019 Esophagogastroduodenoscopy ( 26501354) Dr. Conner Saunders; [facility] 05/06/[address] Conner Saunders; [facility] 07/13/2019
--- OUTSIDE RECORDS SUMMARY | 2025-05-10 10:32 | XMS_ITS | Clinical Summary ---
Author Organization [facility] [place] Address [address] [place] [address] Phone Care Team Providers Care Italian Teacher Name Role Phone Thong Martin MD Primary Care Provider [phone] Allergies No known active allergies Medications norethindrone-e [...] Encounters Date Type Department Care Team Description 05/05/2025 External Device Data STL ABSTRACTION Provider, Abstract 05/04/2025 External Device Data ST[facility] ABSTRACTION Provider, Abstract 04/20/2025 External Device Data ST[facility] ABSTRACTION Provider, Abstract 04/13/2025 External Device Data ST[facility] ABSTRACTION Provider, Abstract 04/06/2025 External Device Data ST[facility] ABSTRACTION Provider, Abstract 03/11/2025 External Device Data ST[facility] ABSTRACTION Provider, Abstract [...] = 0.6 oz pur e alcohol) rarely Comments No Sex and Gender Information Value Date Recorded Sex Assigned at Not on file Legal Sex Female 5:52 AM ASSET COORDINATOR Gender Identity Not on file Sexual Orientation Not on file Last Filed Vital Signs Vital Sign Reading Time Taken Comments Blood Pressure 101/61 11/06/2024 1:27 PM ASSET COORDINATOR Pulse 65 11/06/2024 1:27 PM ASSET COORDINATOR Temperature 36.7 C (98 F) 11/06/2024 1:13 PM ASSET COORDINATOR Respiratory Rate 16 11/06/2024 1:27 PM ASSET COORDINATOR Oxygen Saturation 100% 11/06/2024 1:27 PM ASSET COORDINATOR Inhaled Oxygen Concentration - - Weight 55.8 kg (123 lb) 11/06/2024 12:27 PM ASSET COORDINATOR Height 154.9 cm (5' 1) 11/06/2024 12:27 PM ASSET COORDINATOR Body Mass Index 23.24 11/06/2024 12:27 PM ASSET COORDINATOR Plan of Treatment Health Maintenance Due Date Last Done Comments HPV VACCINES (1 - 3-dose series) 01/11/2007 HEPATITIS B VACCINES (1 of 3 - 19+ 3-dose series) 01/11/2011 HPV/Cotest (21-29) 01/11/2013 CERVICAL CANCER SCREENING 01/11/2022 HPV/Cotest (30-65) 01/11/2022 PAP SMEAR 01/11/2022 09/09/2016 DTAP/TDAP/TD VACCINES (2 - T d or Tdap) 02/17/2024 02/16/2014 INFLUENZA VACCINE (#1) 2025 9, 08/04/2018, 06/30/2018, Additional history exists Insurance [facility] Advance Directives For more information, please contact: [phone] * Full Code (Latest Code Status on [...] 10:47 AM 07/13/2019 11:52 AM Care Teams Italian Teacher Relationship Specialty Start Date End Date Thong Martin MD #[address] [address] PCP - General Internal Medicine 07/03/19
--- OUTSIDE RECORDS SUMMARY | 2025-05-10 10:32 | XMS_ITS | Continuity of Care Document ---
Author Organization [facility] Address [address] [place] [address] Phone Care Team Providers Care Hyperion Administrator Name Role Phone Administrative, Provider Unavailable Unavail able Procedures Procedure Date Medical testimony Rende Scheduling Rescheduling Medical Testimon y Rende Work/Medical Disability Exam RJR 2016 ANITA No Show Rende Advance Directives Directive Yes / No Effective Date File Name No Information Encounters Encounter Description Practice Location Reason(s) For Visit Diagnoses Date Provider Providers Copied on Encounter [facility], [address] [place] [address], [address] [place] [address], tel:[phone] [facility] No Information 7 Administrative Provider[address] [place] [address], [id number], [place]. tel:[phone] Referring Provider: Deacon Nova, [address] [place] [address], [address] . tel:[phone] [facility], [address] [place] [address], [id number], [place] tel:[phone] [facility] No Information 7 Administrative Provider. [address] [place] [address], [id number], [place]. tel:[phone] Referring Provider: Decaon Nova, [address] [facility] [address], [place], [address] . tel:[phone] [facility], [address] [place] [address], [place], [place], [id number], tel:[phone] [facility] Sprain of ligaments of cervical spine, initial encounter Administrative Provider. [address] [place] [address], [place] [address], [place], [place], [id number], . tel:[phone] Referring Provider: Deacon Nova, [address] [place] [address], [place], [address] . tel:[phone] [facility], [address] [place] [address], [place], [place], [id number], tel:[phone] [facility] No Information Administrative Provider. [address] [place] [address], [place], [place], [id number], . tel:[phone] Referring Provider: Deacon Nova, [address] [place] [address], [place], [address] . tel:[phone] Family History Family Member Type Diagnosis Age At Onset No Information Payers Payer name Insurance type Covered libertarian ID Authoriza tion(s) No Information Social History [...]
--- OUTSIDE RECORDS SUMMARY | 2025-05-10 10:32 | XMS_ITS | Encounter Summary ---
Author Organization [facility] Address [address] [place] [address] Phone Care Team Providers Care Bottle Capping Machine Operator Name Role Phone Thong Martin MD Primary Care Provider [phone] Carlos Gallardo MD Unavailable [phone] Reason for Visit * Reason Comments Medication Refill Encounter Details Date Type Department Care Team (Late st Contact Info) Description 04/28/2025 Refill [facility] - [facility] [address] [place] [address] Thong Martin MD #[address] [address] Medication Refill Social History Tobacco Use Types Packs/Day Years Used Date Smoking Tobacco: Never Smokeless Tobacco: Never Alcohol Use Standard Drinks/Week Comments Yes 0 (1 standard drink = 0.6 oz pur e alcohol) rarely [facility] Utilities Answer Date Recorded In the past 12 months has [employer] electric, gas, oil, or water company threatened [...] week 07/16/2024 How often do you attend [facility] or church services? Never 07/16/2024 Do you belong to any clubs o r organizations such as sabianism groups, unions, fraternal or athletic groups, or [...] Total Score - Questions 1-9 0 09/20 [facility] - Occupational [...] place to sleep or slept in a residential (including now)? No 02/11/2024 Housing Stability Vital [...] were you homeless or living in a residential (including now)? No 07/16/2024 Education Answer Date [...] Visit [facility] - Family Medicine [facility] [address] [place] [address] Maren [facility] [address] [place] [address] documented as of this encounter Visit Diagnoses Not on filedocumented in this encounter Additional Health Concerns Assessment Noted Time PHQ-9 Depression Total Score: 0 09/30/20 24 1:07 PM PAINT SPRAY TENDER documented as of this encounter Care Teams Bottle Capping Machine Operator Relationship Specialty Start Date End Date Thong Martin MD [address] [facility] [address] [place] [address] PCP - General Family Medicine 09/12/15 Carlos Gallardo MD #[address] [facility] [address] [place] [address] Consulting Physician Obstetrics & Gynecology 08/13/17 documented as of this encounter
--- OUTSIDE RECORDS SUMMARY | 2025-05-10 10:32 | XMS_ITS | Clinical Summary ---
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 Tonsillar hypertrophy 01/04/2025 Morbid obesity with body mass index of 40.0-49.9 03/30/2019 Anxiety 06/06/2017 Irritable bowel syndrome 07/12/2015 Overview (01/25/2017): IBS Knee pain 03/06/2014 Overview (01/25/2017): Knee pain Depression 07/07/2013 Overview (01/25/2017): Depression Lump or mass in breast 01/13/2010 Encounters Date Type Department Care Team Description 05/07/2025 Telephone [facility] [address] [place] [phone] Mahsa Marrero DO 05/07/2025 Telephone [facility] [address] [place] [address] Mahsa Marrero DO Appointment Reminder Call from Last 3 Months Immunizations Immunization Administration [...] on file Legal Sex Female 8:43 PM REGIONAL DIRECTOR OF ADMISSIONS Gender Identity Not on file Sexual Orientation Not on file Occupation Industry Job Start Date Job End Date Not on file Not on file Not on file Not on file Obstetrics History Para Term AB IAB SAB Ectopic Multiple Livin g Live Births 4 1 1 0 3 0 3 0 0 1 1 Date Outcome GA Total Labor Labor/2nd/3rd Weight Sex Type Anes PTL Shelbi A1 [...] Td or Tdap) 02/17/2024 02/16/2014 Influenza Vaccine (#1) 2025 8, 08/18/2014 HPV Vaccines Aged Out No longer eligi ble based on patient's age to complete this topic Procedures Procedure Name Priority Date/Time Associated Diagnosis Comments GENITAL FLUID PAP SMEAR, THIN PREP WITH HPV EVALUATION Routine 09/09/2016 6:00 PM REGIONAL DIRECTOR OF ADMISSIONS from Last 3 Months or Most Recently Relevant to Health Maintenance Results * Genital fluid pap smear, thin prep with HPV evaluation (09/09/2016 6:00 PM REGIONAL DIRECTOR OF ADMISSIONS) Clinical information SEE NOTE CDR HISTORICAL RESULTS [...] computer assisted technology. Genital 09/09/2016 6:00 PM REGIONAL DIRECTOR OF ADMISSIONS Narrative CDR HISTORICAL RESULTS - 09/17/2016 6:00 AM REGIONAL DIRECTOR OF ADMISSIONS Test performed at [facility] [address] [address] Director: SHIRLEY BOUCHER MD us Historical Provider LAB CYTOLOGY ORDERABLES F inal Result CDR HISTORICAL RESULTS from Last 3 Months or Most Recently Relevant to Health Maintenance Insurance CIGNA CIGNA AETNA SIG [id number] Care Teams Higher Level Teaching Assistant Relationship Specialty Start Date End Date Thong Martin MD [address] [place] [address] PCP - General 07/12/15
--- OUTSIDE RECORDS SUMMARY | 2025-05-10 10:32 | XMS_ITS ---
Author Organization [facility] Address [address] [place], [place] [address] Care Team Providers Care Certified Home Health Aide Name Role Phone Saunders Conner Unavailable [phone] Medications Medication SIG (Take, Route, Frequency, Duration) Notes Start Date End Date Status Ondansetron HCl 4 MG Oral 01/01/2024 Unknown Fluconazole 150 MG Oral 01/01/2024 Unknown Amoxicillin-Pot Clavulanate 875-125 MG Oral 01/01/2024 Unkno wn Sucralfate 1 GM 1 tablet on an empty stomach Orally 4 times a day; Duration: 30 days Crush pill in 1 ounce [...] [address] [place], [place] [id number] 01/06/2025 Conner Saunders Vitamin deficiency, unspecified E56.9 [...] AND FERRITIN PANEL (5616) COMPREHENSIVE METABOLIC PANEL (04436) CBC (H/H, RBC, INDICES, WBC, PLT) (1759) 01/06/2025 HEMOGLOBIN A1c (496) 01/06/2025 VITAMIN B12/FOLATE, SERUM PANEL (7065) 0 01/06/2025 TSH (899) 01/06/2025 VITAMIN D,25-OH,TOTAL,IA (02412) 025 ZINC (945) 01/06/2025 VITAMIN B1 (THIAMINE), SERUM/PLASMA, LC/ MS/MS (39941) 01/06/2025 Procedure Notes * Category Sub-Category Detail [...] arise; and continue to follow-up with bariatric plate finisher. There are no barriers to education today: [...] * SAUL COCHRAN ADOB:1990 (35 yo F)Acc No.[id number]:01/06/2025 Progress Notes Patient: SAUL GARNER Provider: Mihaela Saunders DO :1990 A ge:34 Y S ex:Female Date:01/06/2025 Address:[address] [facility] Subjective: * Chief Complaints: * * HPI: [...] reflux dis : Yes Obesity : Yes associate attorney pn : Yes, ,. * Surgical History: L umpectomy of breast (548681343) 10/21/2007, Cholecystectomy 10/21/2010, section (22392378) 10/21/2017, Esophagogastroduodenoscopy (46061745) Dr. Conner Saunders; [facility] 04/14/2019, Esophagogastroduodenoscopy ([id number]) Dr. Conner Saunders; [facility] 05/06/2020, Gastric bypass Dr. Conner Saunders; [facility] 07/13/2019. * Medications: U nknown ALPRAZolam 1 [...] PANEL (5616) L AB: COMPREHENSIVE METABOLIC PANEL (18183) L AB: CBC (H/H, RBC, INDICES, WBC, PLT) (1759) L AB: HEMOGLOBIN A1c (496) L AB: VITAMIN B12/FOLATE, SERUM PANEL (7065) L AB: TSH (899) L AB: VITAMIN D,25-OH,TOTAL,IA (93786) L AB: ZINC (945) L AB: VITAMIN B1 (THIAMINE), SERUM/PLASMA, LC/MS/MS (29027) 3. O ther specified personal risk factors, not elsewhere classified L AB: LIPID PANEL, STANDARD (7600) L AB: IRON, TIBC AND FERRITIN PANEL (5616) L AB: COMPREHENSIVE METABOLIC PANEL (20343) L AB: CBC (H/H, RBC, INDICES, WBC, PLT) (1759) L AB: HEMOGLOBIN A1c (496) L AB: VITAMIN B12/FOLATE, SERUM PANEL (7065) L AB: TSH (899) L AB: VITAMIN D,25-OH,TOTAL,IA (33191) L AB: ZINC (945) L AB: VITAMIN B1 (THIAMINE), SERUM/PLASMA, LC/MS/MS (57238) 4. S /P bariatric surgery L AB: LIPID PANEL, STANDARD (7600) L AB: IRON, TIBC AND FERRITIN PANEL (5616) L AB: COMPREHENSIVE METABOLIC PANEL (08028) L AB: CBC (H/H, RBC, INDICES, WBC, PLT) (1759) L AB: HEMOGLOBIN A1c (496) L AB: VITAMIN B12/FOLATE, SERUM PANEL (7065) L AB: TSH (899) L AB: VITAMIN D,25-OH,TOTAL,IA (86827) L AB: ZINC (945) L AB: VITAMIN B1 (THIAMINE), SERUM/PLASMA, LC/MS/MS (10449) * Procedures: P ost Operative Plan: Education: [...] arise; and continue to follow-up with bariatric plate finisher. There are no barriers to education today [...] Procedure Codes: * Electronic signature of Stewart elisabeth Saunders DO, [id number] on 05/10/2025 at 10:32 AM CDT Sign off status: Pending * Provider: Mihaela Saunders DO Date: 0 01/06/2025 Generated for Paulette garcia/Derrell/Laloitting on: 0 05/10/2025 10:32 AM CDT History and Physical Notes * HPI [...] none Has patient been admitted to the [facility]?: No Has patient undergone any po st-bariatric [...]
--- OUTSIDE RECORDS SUMMARY | 2025-05-10 10:34 | XMS_ITS | Continuity of Care Document ---
Author Organization [facility] Address [address] [place] [address] Phone Care Team Providers Care Boarding Mother Name Role Phone Administrative, Provider Unavailable Unavail able Procedures Procedure Date Medical testimony Rende Scheduling Rescheduling Medical Testimon y Rende Work/Medical Disability Exam [employer]JR 2016 ANITA No Show Rende Advance Directives Directive Yes / No Effective Date File Name No Information Encounters Encounter Description Practice Location Reason(s) For Visit Diagnoses Date Provider Providers Copied on Encounter [facility], [address] [place] [address], [address] [place] [address], tel:[phone] [facility] No Information 7 Administrative Provider. [address] [place] [address], [id number], [place]. tel:[phone] Referring Provider: Deacon Nova, [address] [place] [address], [address] . tel:[phone] [facility], [address] [place] [address], [id number], [place] tel:[phone] [facility] No Information 7 Administrative Provider. [address] [place] [address], [id number], [place]. tel:[phone] Referring Provider: Deacon Nova, [address] [facility] [address], [place], [address] . tel:[phone] [facility], [address] [place] [address], [place], [place], [id number], tel:[phone] [facility] Sprain of ligaments of cervical spine, initial encounter Administrative Provider. [address] [place] [address], [place] [address], [place], [place], [id number], . tel:[phone] Referring Provider: Deacon Nova, [address] [place] [address], [place], [address] . tel:[phone] [facility], [address] [place] [address], [place], [place], [id number], tel:[phone] [facility] No Information Administrative Provider. [address] [place] [address], [place], [place], [id number], . tel:[phone] Referring Provider: Deacon Nova, [address] [place] [address], [place], [address] . tel:[phone] Family History Family Member Type Diagnosis Age At Onset No Information Payers Payer name Insurance type Covered green party ID Authoriza tion(s) No Information Social [...]
--- NOTE | 2025-05-10 11:16 | ED_ITS ---
HPI - URI/Sore Throat General Chief Complaint: Upper Respiratory Infection Stated Complaint: sinus issues Time Seen by Provider: 05/10/25 11:16 Source: patient, RN notes reviewed and old records reviewed Mode of arrival: ambulatory Limitations: no limitations History of Present Illness HPI Narrative: 35-year-old female presents to the [facility] with 3 day history of sinus congestion, pressure. Swelling noted to the left side of face, left nostril is completely swollen shut. Has a history of similar in the past. Has not followed up with ENT Onset (ago): day(s) (3) Treatments prior to arrival: cold medicine Related Data Home Medications ?Medication ?Instructions ?Recorded ?Confirmed ?Last Taken ?Type norethindrone 1 mg-ethinyl 1 tablet PO DAILY 05/15/21 05/25/24 Unknown History estradiol 10 mcg (24)-iron 10 mcg(2) tablet (Lo Loestrin Fe) alprazolam 1 mg tablet See Rx Instructions .Route 05/25/24 05/25/24 Unknown History .COMPLEX PRN Anxiety omeprazole 40 mg capsule,delayed mg 05/25/24 Unknown History release paroxetine HCl 37.5 mg mg PO 05/25/24 Unknown History tablet,extended release 24 hr sucralfate 1 gram tablet 02/25/25 Unknown History Allergies Allergy/AdvReac Type Severity Reaction Status Date / Time No Known Allergies Allergy Verified 02/25/25 16:28 Review of Systems Review of Systems: All systems reviewed & are unremarkable except as noted in HPI and below Constitutional: Constitutional: Reports no additional constitutional complaints ENT: Reports as per HPI Cardiovascular: Cardiovascular: Reports no additional cardiovascular complaints, Denies chest pain and Denies dyspnea Respiratory: Respiratory: Reports no additional respiratory complaints, Denies chest congestion, Denies cough and Denies dyspnea Musculoskeletal: Musculoskeletal: Reports no additional musculoskeletal complaints Integumentary/Breasts: Skin/Breast: Reports system reviewed and no additional complaints, except as docu PMFSH Past Medical History Medical History GERD (gastroesophageal reflux disease) Ulcer Anxiety and depression Surgical History Surgical History Hx of cholecystectomy History of weight loss surgery History of breast biopsy Family History Family History Mother Family history of blood dyscrasia Hypertension Family history of elevated blood lipids Grandparent Carcinoma of colon Other Diabetes mellitus Social History Social History Smoking status: Current every day smoker Tobacco type: e-cigarettes/vaping Second hand tobacco smoke exposure: No Alcohol intake: never Comments At the time of my signature, I reviewed and agree with the nursing past medical, surgical, social, and family history. There is no relevant family history pertinent to the patient complaint. Exam Const: General: cooperative, no acute distress, well developed, alert, uncomfortable and well nourished Nutritional Appearance: well nourished Orientation/consciousness: patient oriented x3 Limitations: no limitations HENMT: Head: normal to inspection Ears: hearing grossly normal bilaterally, external ears normal, TM's normal bilaterally, EAC's normal, mastoids normal and no periauricular adenopathy Face/Nose/Sinus: Abnormal mucous membranes and turbinates present boggy on the left and erythematous on the left Face and sinus: face symmetric and sinus tenderness other (Left maxillary and frontal) Throat: posterior oropharynx normal, uvula midline and no uvular edema Eyes: General: appearance normal, both eyes and all related structures Alignment and Position: alignment normal Neck: Neck: normal visual inspection, full ROM, no lymphadenopathy and no meningeal signs Chest: Chest palpation & inspection: normal inspection of the chest Resp: Effort & Inspection: normal respiratory effort and able to speak in complete sentences Auscultation: clear to auscultation bilaterally, no crackles, no rales, no rhonchi and no wheezes Cardio: Rate: regular rate Skin: General skin exam: normal color and no rashes or lesions noted Neuro: General: patient oriented x3, gait normal, moves all extremities and no meningeal signs Cognition (Neuro): normal cognition Speech: normal speech Gait exam (Neuro): Normal gait present Extrem: General: normal to inspection, full ROM, capillary refill normal and normal gait Psych: Appearance: grossly normal and well kempt Mental Status: mental status grossly normal Speech and movement: Normal speech and movement present and Clear speech present Affect: normal affect Attitude: cooperative Course Course Level of Care: Express Care Visit Vital Signs Vital signs: Vital Signs Temperature 98.0 F 05/10/25 10:26 Pulse Rate 107 H 05/10/25 10:26 Respiratory Rate 16 05/10/25 10:26 Blood Pressure 135/81 05/10/25 10:26 Pulse Oximetry 100 05/10/25 10:26 Oxygen Delivery Room Air 05/10/25 10:26 Temperature 98.0 F 05/10/25 10:26 Pulse Rate 107 H 05/10/25 10:26 Respiratory Rate 16 05/10/25 10:26 Blood Pressure 135/81 05/10/25 10:26 Pulse Oximetry 100 05/10/25 10:26 Oxygen Delivery Room Air 05/10/25 10:26 Reviewed MDM - URI/Sore Throat MDM Narrative Medical decision making narrative: Patient sitting in exam room. Patient is nontoxic, vitals stable. Patient presents with 3 day history of sinus swelling, nasal swelling. Patient appropriate for outpatient treatment with close follow-up Discussed risk of multiple antibiotic use as well as steroid use Discharge instructions reviewed with patient, as well as provided in writing per nursing staff. The instructions also include specific and strict return/GO TO THE ER as well as f/u information. All questions have been answered, and the patient deny any further questions with discharge and discharge plan. Some parts of this dictation were generated by voice recognition software and may contain typographical and/or grammatical inaccuracies. Differential Diagnosis Differential diagnosis: Likely upper respiratory infection, sinusitis, viral infection, influenza and pharyngitis Critical Care Time Critical Care Time Critical Care Time: No Discharge Plan Discharge Clinical Impression: Sinusitis Patient Disposition: Home Condition: Stable Instructions: Antibiotic Form, Sinusitis (ED) Additional Instructions: The most important part of your care is following with your primary care provider and establishing care with a ENT for further evaluation of your chronic sinus issues. For new or worsening symptoms go directly to the emergency room It is very important to treat your symptoms. Drink plenty of water, Gatorade, Pedialyte, ice pops or Jell-O. -Alternate Tylenol 650mg and Motrin 600mg per package directions for fever or pain. You can alternate every 4 hours -Antihistamine medication such as Zyrtec/Claritin/Jane during the day can help improve symptoms. -doing daily nasal irrigations can help relieve pressure your sinuses. Things like a Neti pot -Use Flonase twice a day for 5 days then daily to help reduce the inflammation and dry up your sinuses. -You can also use Mucinex. Be sure to drink plenty of water with this medication at least 8 ounces with every dose and it is important to drink 8 to 10 glasses of water per day. Water is a natural decongestant -Frequent hand washing or hand energy audit advisor is one of the best ways to prevent spread of infection. -Using a vaporizer or humidifier at night will also help thin secretions and help with coughing up phlegm. -Follow up with primary care provider in 7-10 days if condition is not improving - For new or worsening symptoms go directly to the nearest ER Patient Language: Armenian Prescriptions: New amoxicillin-pot clavulanate 875-125 mg tablet 1 tablet PO Q12H Qty: 20 0RF prednisone 20 mg tablet 40 mg PO DAILY 5 Days Qty: 10 0RF No Action alprazolam 1 mg tablet See Rx Instructions .ROUTE .COMPLEX PRN (Reason: Anxiety) Rx Instructions: ass prescribedd omeprazole 40 mg capsule,delayed release(DR/EC) paroxetine HCl 37.5 mg tablet extended release 24 hr PO sucralfate 1 gram tablet Lo Loestrin Fe 1 mg-10 mcg (24)/10 mcg (2) tablet 1 tablet PO DAILY Follow-up/Referrals: Mario,Thong Wells MD [Primary Care Provider] - 2 Weeks ([facility] care follow up ) Stand Alone Forms: Work/School Release IP Time of Disposition: 11:26
== END 2025-05-10 11:31 | disposition home or self-care (01) ==
PROVIDERS: Emergency Provider Nurse Practitioner; PCP Internal Medicine
DX: J32.9 Chronic sinusitis, unspecified (principal); F17.290 Nicotine dependence, other tobacco product, uncomplicated
CPT/HCPCS: 99213; G0463

== ENCOUNTER 2025-05-26 16:05 | Emergency (ER) | payer OTHER, SELFPAY ==
--- NOTE | ~2025-05-26 | XR_ITS ---
EXAMINATION: XR hand RT min 3V DATE: 05/26/2025 16:40 INDICATION: Right hand injury after punching a wall TECHNIQUE: Posteroanterior, oblique and lateral views of the right hand were obtained. COMPARISON: None. FINDINGS: Alignment is normal. No fracture. Joint spaces are normal. Soft tissue swelling dorsal to the heads o f the fourth and fifth metacarpals. IMPRESSION: 1. No osseous abnormality. Reviewed, dictated and finalized at location A. IMPRESSION: 1. No osseous abnormality.
--- OUTSIDE RECORDS SUMMARY | 2025-05-26 16:08 | XMS_ITS | Clinical Summary ---
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 Resolved Problems Problem Noted Date Diagnosed Date Resolved Date Bronchitis 06/08/2016 11/30/2020 Earache, referred 11/30/2020 Encounters Date Type Department Care Team Description 04/28/2025 Refill [facility] [place] [address] Thong Martin MD Medication Refill 04/27/2025 Refill [facility] [address]2 [place] [address] Thong Martin MD Medication Refill 04/21/2025 Nurse Triage [facility] [place] [facility] [address] [place] [address] Thong Martin MD Advice Only; Sinus Pain; Nasal Congestion 04/08/2025 Nurse Triage [facility] [address] [place] [address] Thong Martin MD Headache 04/01/2025 Refill [facility] #2 [place] [address] Thong Martin MD Medication Refill 02/25/2025 Refill [facility] [address] [place] [address] Thong Martin MD Medication Refill from Last [...] = 0.6 oz pur e alcohol) rarely [employer] Utilities Answer Date Recorded In the past 12 months has [employer], [employer], oil, or water [employer] threatened to shut off services in your [...] 07/16/2024 How often do you attend chur or zoroastrianism services? Never 07/16/2024 Do you belong to [...] - Questions 1-9 0 09/20 [facility] of Occupat ional [facility] - Occupational Stress Questionnaire Answer Date Recorded [...] place to sleep or slept in a half-way (including now)? No 02/11/2024 Housing Stability Vital Sign Answer Tomás e Recorded In the last 12 months, was t here a time when you were not able to pay the mortgage or rent on time? No 07/16/2024 In the past 12 months, how m any times have you moved where you were living? 0 07/16/2024 At any time in the past 12 m [facility], were you homeless or living in a half-way (including now)? No 07/16/2024 Education Answer Date [...] Comments Blood Pressure 122/70 09/30/2024 1:04 PM CARD LACER Pulse 83 09/30/2024 1:04 PM CARD LACER Temperature 36.7 C (98.1 F) 09/30/2024 1:04 PM CARD LACER Respiratory Rate 18 09/30/2024 1:04 PM CARD LACER Oxygen Saturation 99% 09/30/2024 1:04 PM CARD LACER Inhaled Oxygen Concentration - - Weight 57.6 kg (127 lb) 09/30/2024 1:04 PM CARD LACER Height 154.9 cm (5' 1) 09/30/2024 1:04 PM CARD LACER Body Mass Index 24 09/30/2024 1:04 PM CARD LACER Plan of Treatment Upcoming Encounters Date Type Department Care Team (Late st Contact Info) Description 05/28/2025 1:45 PM CDT Office Visit [facility] [address]2 [place] [address] Shoshana Maren Diez, PAC #2 [place] [address] Health Maintenance Due Date Last Done Comments Hepatitis C Virus (HCV) Screening 1992 Hepatitis B Immunization (1 of 3 - 19+ 3-dose series) 01/11/2011 Human Papillomavirus (HPV) Immunization (1 - 3-dose SCDM series) 01/11/2019 HPV/Cotest 01/11/2022 Td Immunization Every 10 Yea rs (Adults With 1 Tdap) 02/17/2024 02/16/2014 SARS-COV-2 Immunization ( - season) 2024 Cervical Cancer Screening (CCS) 03/01/2025 [...] Priority Date/Time Associated Diagnosis Comments PATHOLOGY CYTOLOGY FIRST ASSISTANT MANAGER Routine 09/09/2016 from Last 3 Months or Most Recently Relevant to Health Maintenance Results * PATHOLOGY CYTOLOGY FIRST ASSISTANT MANAGER (09/09/2016) Specimen of unknown material (specimen) us Not On File Provider PATHOLOGY/CYTOLOGY ORDERABL ES Final Result from Last 3 Months or Most Recently Relevant to Health Maintenance Insurance [employer] ASA Care Teams Applications Instructor Relationship Specialty Start Date End Date Thong Martin MD [address] [address] PCP - General Family Medicine 09/12/15 Carlos Gallardo MD [address] [address] Consulting Physician Obstetrics & Gynecology 08/13/17
--- OUTSIDE RECORDS SUMMARY | 2025-05-26 16:08 | XMS_ITS | Encounter Summary ---
Author Organization [facility] Address [address] [place] [address] Phone Care Team Providers Care Respiratory Assistant Name Role Phone Thong Martin MD Primary Care Provider [phone] Carlos Gallardo MD Unavailable Unavailab le Reason for Visit * Reason Comments Medication Refill Encounter Details Date Type Department Care Team (Late st Contact Info) Description 02/03/2024 Refill [facility] #2 [place] [address] Candy Prabhakar APRN, PIPE MANUFACTURE SUPERVISOR #[address] [id number] Medication Refill Social History Tobacco Use Types [...] Dept 08/15/23 Office Visit Candy Prabhakar APRN, PIPE MANUFACTURE SUPERVISOR [facility] Showing recent visits within past 182 days [...] Medical Group - Family Medicine [place] [address] [place] [address] Maren Anna PAC [address]2 [place] [address] documented as of this encounter Visit Diagnoses Not on filedocumented in this encounter Additional Health Concerns Infection Onset Date Last Indicated Resolved Time COVID - 19 09/30/2024 09/30/2024 09/30/2024 1:30 PM MEAT CUTTER Respiratory Rule-Out 09/30/2024 09/30/2024 024 1:30 PM MEAT CUTTER Assessment Noted Time PHQ-9 Depression Total Score: 0 12/14/19 23 11:02 AM MEAT CUTTER documented as of this encounter Care Teams Respiratory Assistant Relationship Specialty Start Date End Date Thong Martin MD [address] [address] PCP - General Family Medicine 09/12/15 Carlos Gallardo MD #[address] [address] Consulting Physician Obstetrics & Gynecology 08/13/17 documented as of this encounter
--- OUTSIDE RECORDS SUMMARY | 2025-05-26 16:08 | XMS_ITS | Encounter Summary ---
Author Organization [facility] Address [address] [place] [address] Phone Care Team Providers Care Avionic Technician Name Role Phone Thong Martin MD Primary Care Provider [phone] Carlos Gallardo MD Unavailable Unavailab le Reason for Visit * Reason Comments Medication Refill Encounter Details Date Type Department Care Team (Late st Contact Info) Description 09/02/2023 Refill [facility] #2 [place] [address] Thong Martin MD #[address] [address] Medication Refill Social History Tobacco Use Types [...] Miscellaneous Notes * Telephone Encounter - Allie Fitch, RN - 09/02/2023 3:26 PM CST Signed Today (09/02/2023): ALPRAZolam (XANAX) 0.5 MG Tablet Sig: TAKE 1 TABLET BY MOUTH EVERY NIGHT NEEDED FOR ANXIETY Disp: 30 Tablet ? Refills: 0 Signed by: Thong Martin MD DOFFER documented in this encounter Plan of Treatment Upcoming Encounters Date Type Department Care Team (Late st Contact Info) Description 05/28/2025 1:45 PM CDT Office Visit [facility] [address] [place] [address] Maren Anna PAC [address] [place] [address] documented as of this encounter Visit Diagnoses Diagnosis Encounter for long-term (current) use of medications Encounter for long-term (current) use of other medications documented in this encounter Additional Health Concerns Infection Onset Date Last Indicated Resolved Time COVID - 19 09/30/2024 09/30/2024 09/30/2024 1:30 PM BEAM DOFFER Respiratory Rule-Out 09/30/2024 09/30/2024 024 1:30 PM BEAM DOFFER Assessment Noted Time PHQ-9 Depression Total Score: 0 12/14/19 23 11:02 AM BEAM DOFFER documented as of this encounter Care Teams Avionic Technician Relationship Specialty Start Date End Date Thong Martin MD #[address] [address] PCP - General Family Medicine 09/12/15 Carlos Gallardo MD [address] [address] Consulting Physician Obstetrics & Gynecology 08/13/17 documented as of this encounter
--- OUTSIDE RECORDS SUMMARY | 2025-05-26 16:08 | XMS_ITS | Encounter Summary ---
Author Organization [facility] Address [address] [place] [address] Phone Care Team Providers Care Before And After School Daycare Worker Name Role Phone Thong Martin MD Primary Care Provider [phone] Carlos Gallardo MD Unavailable Unavailab le Reason for Visit * Reason Comments Medication Refill Encounter Details Date Type Department Care Team (Late st Contact Info) Description 03/08/2024 Refill [facility] Group - Family Medicine [facility] #2 [place] [address] Thong Martin MD #[address] [address] Medication Refill Social History Tobacco Use Types Packs/Day Years Used Date Smoking Tobacco: Never Smokeless Tobacco: Never Alcohol Use Standard Drinks/Week Comments Yes 0 (1 standard drink = 0.6 oz pur e alcohol) rarely [facility] Utilities Answer Date Recorded In the past 12 months has [employer], gas, oil, or water company threatened [...] week 02/11/2024 How often do you attend [facility] or shinto services? Never 02/11/2024 Do you belong to any clubs o r organizations such as moravian groups, unions, fraternal or athletic groups, or [...] Total Score - Questions 1-9 0 01/20 [facility] of Occupat ional Health - Occupational [...] place to sleep or slept in a alf (including now)? No 02/11/2024 Education Answer Date [...] Allen 06/13/23 Office Visit Thong Martin MD [facility] Showing recent visits within past 365 [...] Office Visit [facility] #2 [place] [address] Maren Anna PAC [address] [place] [address] documented as of this encounter Visit Diagnoses Diagnosis Encounter for long-term (current) use of medications Encounter for long-term (current) use of other medications documented in this encounter Additional Health Concerns Infection Onset Date Last Indicated Resolved Time COVID - 19 09/30/2024 09/30/2024 09/30/2024 1:30 PM LOG DECK TENDER Respiratory Rule-Out 09/30/2024 09/30/2024 024 1:30 PM LOG DECK TENDER Assessment Noted Time PHQ-9 Depression Total Score: 0 02/11/20 24 1:26 PM CDT documented as of this encounter Care Teams Before And After School Daycare Worker Relationship Specialty Start Date End Date Thong Martin MD #[address] [address] PCP - General Family Medicine 09/12/15 Carlos Gallardo MD #[address] [address] Consulting Physician Obstetrics & Gynecology 08/13/17 documented as of this encounter
--- OUTSIDE RECORDS SUMMARY | 2025-05-26 16:08 | XMS_ITS | Encounter Summary ---
Author Organization [facility] Address [address] [place] [address] Phone Care Team Providers Care Card Grader Name Role Phone Thong Martin MD Primary Care Provider [phone] Carlos Gallardo MD Unavailable Unavailab le Reason for Visit * Reason Comments Medication Refill Encounter Details Date Type Department Care Team (Late st Contact Info) Description 02/07/2024 Refill [facility] - Family Medicine [facility] #[address] [place] [address] Thong Martin MD #[address] [address] Medication Refill Social History Tobacco Use Types Packs/Day Years Used Date Smoking Tobacco: Never Smokeless Tobacco: Never Alcohol Use Standard Drinks/Week Comments Yes 0 (1 standard drink = 0.6 oz pur e alcohol) rarely [facility] Utilities Answer Date Recorded In the past 12 months has [employer] electric, gas, oil, or water company threatened [...] week 02/11/2024 How often do you attend [facility] or sabianist services? Never 02/11/2024 Do you belong to any clubs o r organizations such as cheondoism groups, unions, fraternal or athletic groups, or [...] Total Score - Questions 1-9 0 01/20 [facility] of Occupat ional Health - [...] place to sleep or slept in a senior care (including now)? No 02/11/2024 Education Answer Date [...] Visit [facility] #[address] [place] [address] Maren Anna PAC [address] [place] [address] documented as of this encounter Visit Diagnoses Diagnosis Primary insomnia Persistent disorder of initiating or maintaining sleep documented in this encounter Additional Health Concerns Infection Onset Date Last Indicated Resolved Time COVID - 19 09/30/2024 09/30/2024 09/30/2024 1:30 PM [place] Respiratory Rule-Out 09/30/2024 09/30/2024 024 1:30 PM [place] Assessment Noted Time PHQ-9 Depression Total Score: 0 12/14/19 23 11:02 AM PLOWING G[place] documented as of this encounter Care Teams Card Grader Relationship Specialty Start Date End Date Thong Martin MD #[address] [address] PCP - General Family Medicine 09/12/15 Carlos Gallardo MD #[address] [address] Consulting Physician Obstetrics & Gynecology 08/13/17 documented as of this encounter
--- OUTSIDE RECORDS SUMMARY | 2025-05-26 16:08 | XMS_ITS | Encounter Summary ---
Author Organization [facility] Address [address] [place] [address] Phone Care Team Providers Care Disabilities Caregiver Name Role Phone Thong Martin MD Primary Care Provider [phone] Carlos Gallardo MD Unavailable Unavailab le Reason for Visit * Reason Comments Medication Refill Encounter Details Date Type Department Care Team (Late st Contact Info) Description 10/10/2023 Refill [facility] #2 [place] [address] Thong Martin MD #[address] [address] Medication Refill Social History Tobacco Use Types [...] encounter Miscellaneous Notes * Telephone Encounter - Se, Allie L, RN - 10/11/2023 9:25 AM CST PDMP [...] 08/15/23 Office Visit Candy [facility]akar APRN[facility] CNP [facility] 06/[facility]/23 Office Visit [facility]ailesh Brennan APRN, CNP [facility] 06/13/23 Office Visit Thong Martin MD [facility] 12/14/22 Office Visit Thong Martin MD [facility] 11/30/22 Office Visit Shailesh Brennan APRN, SORAYA [facility] Showing recent visits within past 365 days and meeting all other requirements Future Appointments Date Type Provider Dept 12/17/23 Appointment Thong Martin MD [facility] Showing future appointments within next 90 days and meeting all other requirements OR SVP documented in this encounter Plan of Treatment Upcoming Encounters Date Type Department Care Team (Late st Contact Info) Description 05/28/2025 1:45 PM CDT Office Visit [facility] Group - Family Medicine - [place] #[address] [place] [address] Maren Anna PAC [address] [place] [address] documented as of this encounter Visit Diagnoses Diagnosis Encounter for long-term (current) use of medications Encounter for long-term (current) use of other medications documented in this encounter Additional Health Concerns Infection Onset Date Last Indicated Resolved Time COVID - 19 09/30/2024 09/30/2024 09/30/2024 1:30 PM SENIOR SVP Respiratory Rule-Out 09/30/2024 09/30/2024 024 1:30 PM SENIOR SVP Assessment Noted Time PHQ-9 Depression Total Score: 0 12/14/19 23 11:02 AM SENIOR SVP documented as of this encounter Care Teams Disabilities Caregiver Relationship Specialty Start Date End Date Thong Martin MD [address] [address] PCP - General Family Medicine 09/12/15 Carlos Gallardo MD #[address] [address] Consulting Physician Obstetrics & Gynecology 08/13/17 documented as of this encounter
--- OUTSIDE RECORDS SUMMARY | 2025-05-26 16:08 | XMS_ITS | Encounter Summary ---
Author Organization [facility] Address [address] [place] [address] Phone Care Team Providers Care Clinical Nurse Educator Name Role Phone Thong Martin MD Primary Care Provider [phone] Carlos Gallardo MD Unavailable Unavailab le Reason for Visit * Reason Comments Medication Refill Encounter Details Date Type Department Care Team (Late st Contact Info) Description 02/19/2025 Refill [facility] - Family Medicine [facility] #2 [place] [address] Thong Martin MD #[address] [address] Medication Refill Social History Tobacco Use Types Packs/Day Years Used Date Smoking Tobacco: Never Smokeless Tobacco: Never Alcohol Use Standard Drinks/Week Comments Yes 0 (1 standard drink = 0.6 oz pur e alcohol) rarely [facility] Utilities Answer Date Recorded In the past 12 months has [employer] electric, gas, oil, or water company threatened [...] week 07/16/2024 How often do you attend [facility] or tenriism services? Never 07/16/2024 Do you belong to any clubs o r organizations such as yarsani groups, unions, fraternal or athletic groups, or [...] Total Score - Questions 1-9 0 09/20 [facility] of Occupat ional [facility] - Occupational Stress Questionnaire Answer Date [...] in a penitentiary (including now)? No 02/11/2024 Housing Stability Vital Sign Answer Tomás e Recorded In the last 12 months, was t here a time when you were not able to pay the mortgage or rent on time? No 07/16/2024 In the past 12 months, how m any times have you moved where you were living? 0 07/16/2024 At any time in the past 12 m [facility], were you homeless or living in a penitentiary (including now)? No 07/16/2024 Education Answer Date [...] Visit [facility] #2 [place] [address] Maren Anna PAC [address] [place] [address] documented as of this encounter Visit Diagnoses Not on filedocumented in this encounter Additional Health Concerns Assessment Noted Time PHQ-9 Depression Total Score: 0 09/30/20 24 1:07 PM TRUCK RENTAL CLERK documented as of this encounter Care Teams Clinical Nurse Educator Relationship Specialty Start Date End Date Thong Martin MD #[address] [facility] [address] [place] [address] PCP - General Family Medicine 09/12/15 Carlos Gallardo MD #[address] [facility] [address] [place] [address] Consulting Physician Obstetrics & Gynecology 08/13/17 documented as of this encounter
--- OUTSIDE RECORDS SUMMARY | 2025-05-26 16:08 | XMS_ITS | Encounter Summary ---
Author Organization [facility] Address [address] [place] [address] Phone Care Team Providers Care Accounts Receivable Assistant Name Role Phone Thong Martin MD Primary Care Provider [phone] Carlos Gallardo MD Unavailable Unavailab le Reason for Visit * Reason Comments Medication Refill Encounter Details Date Type Department Care Team (Late st Contact Info) Description 01/14/2022 Refill [facility] #2 [place] [address] Thong Martin MD #[address] [address] Medication Refill Social History Tobacco Use Types [...] encounter Miscellaneous Notes * Telephone Encounter - Nielsen AltaMIGUEL - 01/16/2022 9:01 AM CDT Spoke with [...] want an appointment since she went to [facility] to see a different Doctor and [...] Dept 09/18/21 Office Visit Maren Anna PAC [facility] [place] 07/21/21 Office Visit Thong Martin MD [facility] Showing recent visits within past 365 days and meeting all other requirements Future Appointments No visits were found meeting these conditions. Showing future appointments within next 90 days and meeting all other requirements documented in this encounter Plan of Treatment Upcoming Encounters Date Type Department Care Team (Late st Contact Info) Description 05/28/2025 1:45 PM CDT Office Visit [facility] Medical Group - Family Medicine - [place] #2 [place] [phone] Maren Anna, PAC #[address] [place] [address] documented as of this encounter Visit Diagnoses Diagnosis Anxiety Anxiety state, unspecified documented in this encounter Additional Health Concerns Infection Onset Date Last Indicated Resolved Time COVID - 19 09/30/2024 09/30/2024 09/30/2024 1:30 PM BODY SHOP WORKER Respiratory Rule-Out 09/30/2024 09/30/2024 024 1:30 PM BODY SHOP WORKER Assessment Noted Time PHQ-9 Depression Total Score: 0 11/30/19 21 2:04 PM BODY SHOP WORKER documented as of this encounter Care Teams Accounts Receivable Assistant Relationship Specialty Start Date End Date Thong Martin MD #[address] [address] PCP - General Family Medicine 09/12/15 Carlos Gallardo MD #[address] [address] Consulting Physician Obstetrics & Gynecology 08/13/17 documented as of this encounter
--- OUTSIDE RECORDS SUMMARY | 2025-05-26 16:08 | XMS_ITS | Encounter Summary ---
Author Organization [facility] Address [address] [place] [address] Phone Care Team Providers Care Wink Cutter Operator Name Role Phone Thong Martin MD Primary Care Provider [phone] Carlos Gallardo MD Unavailable Unavailab le Reason for Visit * Reason Comments Medication Refill Encounter Details Date Type Department Care Team (Late st Contact Info) Description 03/04/2021 Refill [facility] #2 [place] [address] Thong Martin MD #[address] [address] Medication Refill Social History Tobacco Use Types [...] Office Visit [facility] #2 [place] [address] Maren Anna PAC #[address] [place] [address] documented as of this encounter Visit Diagnoses Not on filedocumented in this encounter Additional Health Concerns Infection Onset Date Last Indicated Resolved Time COVID - 19 09/18/2021 09/18/2021 10/08/2021 12:1 6 AM ANODIZER COVID - 19 Confirmed 09/18/2021 09/18/2021 021 12:16 AM ANODIZER COVID - 19 09/30/2024 09/30/2024 09/30/2024 1:30 PM ANODIZER Respiratory Rule-Out 09/30/2024 09/30/2024 024 1:30 PM ANODIZER Assessment Noted Time PHQ-9 Depression Total Score: 0 11/30/19 21 2:04 PM ANODIZER documented as of this encounter Care Teams Wink Cutter Operator Relationship Specialty Start Date End Date Thong Martin MD #[address] [address] PCP - General Family Medicine 09/12/15 Carlos Galalrdo MD #[address] [address] Consulting Physician Obstetrics & Gynecology 08/13/17 documented as of this encounter
--- OUTSIDE RECORDS SUMMARY | 2025-05-26 16:08 | XMS_ITS | Encounter Summary ---
Author Organization [facility] Address [address] [place] [address] Phone Care Team Providers Care Fiscal Officer Name Role Phone Thong Martin MD Primary Care Provider [phone] Carlos Gallardo MD Unavailable Unavailab le Reason for Visit * Reason Comments Medication Refill Encounter Details Date Type Department Care Team (Late st Contact Info) Description 12/21/2023 Refill [facility] #2 [place] [address] Thong Martin MD #[address] [address] Medication Refill Social History Tobacco Use Types [...] Encounter - Se, Allie L, RN - 12/23/2023 8:52 AM CST PDMP [...] 08/15/23 Office Visit Candy Prabhakar APRN, [facility] 06/26/23 Office Visit Shailesh Brennan APRN, [facility] [place] 06/13/23 Office Visit Thong [facility] Showing recent visits within past 365 days and meeting all other requirements Future Appointments Date Type Provider Dept 01/07/24 Appointment Thong Martin MD [facility] [place] Showing future appointments within next 90 days and meeting all other requirements ESSOR OF PHILOSOPHY documented in this encounter Plan of Treatment Upcoming Encounters Date Type Department Care Team (Late st Contact Info) Description 05/28/2025 1:45 PM CDT Office Visit [facility] - [place] #2 [place] [address] Maren Anna PAC #2 [place] [address] documented as of this encounter Visit Diagnoses Diagnosis Encounter for long-term (current) use of medications Encounter for long-term (current) use of other medications documented in this encounter Additional Health Concerns Infection Onset Date Last Indicated Resolved Time COVID - 19 09/30/2024 09/30/2024 09/30/2024 1:30 PM PROFESSOR OF PHILOSOPHY Respiratory Rule-Out 09/30/2024 09/30/20242 024 1:30 PM PROFESSOR OF PHILOSOPHY Assessment Noted Time PHQ-9 Depression Total Score: 0 12/14/19 23 11:02 AM PROFESSOR OF PHILOSOPHY documented as of this encounter Care Teams Fiscal Officer Relationship Specialty Start Date End Date Thong Martin MD [facility] [address] [place] [address] PCP - General Family Medicine 09/12/15 Carlos Gallardo MD #[address] [address] Consulting Physician Obstetrics & Gynecology 08/13/17 documented as of this encounter
--- OUTSIDE RECORDS SUMMARY | 2025-05-26 16:08 | XMS_ITS | Encounter Summary ---
Author Organization [facility] Address [address] [place] [address] Phone Care Team Providers Care Bandmill Operator Name Role Phone Thong Martin MD Primary Care Provider [phone] Carlos Gallardo MD Unavailable Unavailab le Reason for Visit * Reason Comments Medication Refill Encounter Details Date Type Department Care Team (Late st Contact Info) Description 09/04/2023 Refill [facility] #2 [place] [address] Thong Martin MD #[address] [address] Medication Refill Social History Tobacco Use Types [...] Shirin Burnham RN - 09/05/2023 10:24 AM SERVICE PROVIDER Per below note, pharmacy is calling stating [...] 08/15/23 Office Visit Candy Prabhakar APRN, [facility] 06/26/23 Office Visit Shailesh Brennan APRN, CNP [facility] 06/13/23 Office Visit Thong Martin MD [facility] 12/14/22 Office Visit Thong Martin MD [facility] 11/30/22 Office Visit Shailesh Brennan APRN, [facility] [place] Showing recent visits within past 365 days and meeting all other requirements Future Appointments No visits were found meeting these conditions. Showing future appointments within next 90 days and meeting all other requirements ICE PROVIDER * Telephone Encounter - Kaila Roland MA - 09/04/2023 12:31 PM SERVICE PROVIDER Message left on medication refill voice mail: Heather calling in regards to script 09/02/23 Alprazolam 0.5 mg tabs Per pharmacy stated patient realized she requested the wrong dose . Patient wanted Alprazolam 1 mg tabs, pdmp 08/13/23 10 day supply Per pharmacy patient did not take the Alprazolam 0.5 mg tabs . ICE PROVIDER documented in this encounter Plan of Treatment Upcoming Encounters Date Type Department Care Team (Late st Contact Info) Description 05/28/2025 1:45 PM CDT Office Visit [facility] - Family [facility] #2 [place] [address] Maren Anna, PAC [address]2 [place] [address] documented as of this encounter Visit Diagnoses Diagnosis Encounter for long-term (current) use of medications Encounter for long-term (current) use of other medications documented in this encounter Additional Health Concerns Infection Onset Date Last Indicated Resolved Time COVID - 19 09/30/2024 09/30/2024 09/30/2024 1:30 PM SERVICE PROVIDER Respiratory Rule-Out 09/30/2024 09/30/2024 024 1:30 PM SERVICE PROVIDER Assessment Noted Time PHQ-9 Depression Total Score: 0 12/14/19 23 11:02 AM SERVICE PROVIDER documented as of this encounter Care Teams Bandmill Operator Relationship Specialty Start Date End Date Thong Martin MD #[address] [address] PCP - General Family Medicine 09/12/15 Carlos Gallardo MD #[address] [address] Consulting Physician Obstetrics & Gynecology 08/13/17 documented as of this encounter
--- OUTSIDE RECORDS SUMMARY | 2025-05-26 16:08 | XMS_ITS | Encounter Summary ---
Author Organization [facility] Address [address] [place] [address] Phone Care Team Providers Care Manufacturing Plant Technician Name Role Phone Thong Martin MD Primary Care Provider [phone] Carlos Gallardo MD Unavailable Unavailab le Reason for Visit * Reason Comments Medication Refill Encounter Details Date Type Department Care Team (Late st Contact Info) Description 06/06/2023 Refill [facility] #2 [place] [phone] Candy Prabhakar APRN, VULCANIZING PRESS OPERATOR #[address] [id number] Medication Refill Social History Tobacco Use Types [...] Dept 12/14/22 Office Visit Thong Martin MD [facility] 11/30/22 Office Visit Shailesh Brennan APRN, CNP [facility] 06/28/22 Office Visit Thong Martin MD [facility] Showing recent visits within past 365 days and meeting all other requirements Future Appointments No visits were found meeting these conditions. Showing future appointments within next 90 days and meeting all other requirements documented in this encounter Plan of Treatment Upcoming Encounters Date Type Department Care Team (Late st Contact Info) Description 05/28/2025 1:45 PM CDT Office Visit [facility] Group - Family Medicine - [place] [address]2 [place] [address] Maren Anna, PAC [address] [place] [address] documented as of this encounter Visit Diagnoses Diagnosis Primary insomnia Persistent disorder of initiating or maintaining sleep documented in this encounter Additional Health Concerns Infection Onset Date Last Indicated Resolved Time COVID - 19 09/30/2024 09/30/2024 09/30/2024 1:30 PM LIFE INSURANCE UNDERWRITER Respiratory Rule-Out 09/30/2024 09/30/2024 024 1:30 PM LIFE INSURANCE UNDERWRITER Assessment Noted Time PHQ-9 Depression Total Score: 0 12/14/19 23 11:02 AM LIFE INSURANCE UNDERWRITER documented as of this encounter Care Teams Manufacturing Plant Technician Relationship Specialty Start Date End Date Thong Martin MD [address] [address] PCP - General Family Medicine 09/12/15 Carlos Gallardo MD #[address] [address] Consulting Physician Obstetrics & Gynecology 08/13/17 documented as of this encounter
--- OUTSIDE RECORDS SUMMARY | 2025-05-26 16:08 | XMS_ITS | Encounter Summary ---
Author Organization [facility] Address [address] [place] [address] Phone Care Team Providers Care Dairy Manufacturing Technologist Name Role Phone Thong Martin MD Primary Care Provider [phone] Carlos Gallardo MD Unavailable Unavailab le Reason for Visit * Reason Comments Medication Refill Encounter Details Date Type Department Care Team (Late st Contact Info) Description 08/31/2023 Refill [facility] #2 [place] [address] Thong Martin MD #[address] [address] Medication Refill Social History Tobacco Use Types [...] Shirin Burnham RN - 08/31/2023 3:49 PM PHYTOPATHOLOGIST This script differs from previous script. How [...] 08/15/23 Office Visit Candy Prabhakar APRN, CNP [facility] 06/26/23 Office Visit Shailesh Brennan APRN, CNP [facility] 06/13/23 Office Visit Thong Martin MD [facility] 12/14/22 Office Visit Thong Martin MD [facility] [place] 11/30/22 Office Visit Shailesh Brennan APRN, [facility] Showing recent visits within past 365 days and meeting all other requirements Future Appointments No visits were found meeting these conditions. Showing future appointments within next 90 days and meeting all other requirements OPATHOLOGIST documented in this encounter Plan of Treatment Upcoming Encounters Date Type Department Care Team (Late st Contact Info) Description 05/28/2025 1:[address] [facility] - Family Medicine - [place] #2 [place] [address] Maren Anna, PAC [address]2 [place] [address] documented as of this encounter Visit Diagnoses Diagnosis Primary insomnia Persistent disorder of initiating or maintaining sleep documented in this encounter Additional Health Concerns Infection Onset Date Last Indicated Resolved Time COVID - 19 09/30/2024 09/30/2024 09/30/2024 1:30 PM PHYTOPATHOLOGIST Respiratory Rule-Out 09/30/2024 09/30/2024 024 1:30 PM PHYTOPATHOLOGIST Assessment Noted Time PHQ-9 Depression Total Score: 0 12/14/19 23 11:02 AM PHYTOPATHOLOGIST documented as of this encounter Care Teams Dairy Manufacturing Technologist Relationship Specialty Start Date End Date Thong Martin MD [address] [address] PCP - General Family Medicine 09/12/15 Carlos Gallardo MD [address] [address] Consulting Physician Obstetrics & Gynecology 08/13/17 documented as of this encounter
--- OUTSIDE RECORDS SUMMARY | 2025-05-26 16:08 | XMS_ITS | Encounter Summary ---
Author Organization [facility] Address [address] [place] [address] Phone Care Team Providers Care Iphone Developer Name Role Phone Thong Martin MD Primary Care Provider [phone] Carlos Gallardo MD Unavailable Unavailab le Reason for Visit * Reason Comments Medication Refill Encounter Details Date Type Department Care Team (Late st Contact Info) Description 04/12/2024 Refill [facility] - Family Medicine [facility] #2 [place] [address] Thong Martin MD #[address] [address] Medication Refill Social History Tobacco Use Types Packs/Day Years Used Date Smoking Tobacco: Never Smokeless Tobacco: Never Alcohol Use Standard Drinks/Week Comments Yes 0 (1 standard drink = 0.6 oz pur e alcohol) rarely [facility] Utilities Answer Date Recorded In the past 12 months has [employer], gas, oil, or water company threatened [...] week 02/11/2024 How often do you attend [facility] or restorationism services? Never 02/11/2024 Do you belong to [...] Total Score - Questions 1-9 0 01/20 [facility] - Occupational Stress [...] place to sleep or slept in a jail (including now)? No 02/11/2024 Education Answer Date [...] [place] 02/11/24 Office Visit Thong Martin MD [facility] [place] 08/15/23 Office Visit Candy Prabhakar APRN, BUSINESS OBJECTS ARCHITECT [facility] [place] 06/26/23 Office Visit Shailesh Brennan APRN, [facility] [place] 06/13/23 Office Visit [facility] Showing recent visits within past 365 days and meeting all other requirements Future Appointments Date Type Provider Dept 05/05/24 Appointment [facility] L[facility] Showing future appointments within next 90 days and meeting all other requirements documented in this encounter Plan of Treatment Upcoming Encounters Date Type Department Care Team (Late st Contact Info) Description 05/28/2025 1:45 PM CDT Office Visit [facility] - [place] [address]2 [place] [address] Maren Anna PAC #2 [place] [address] documented as of this encounter Visit Diagnoses Diagnosis Encounter for long-term (current) use of medications Encounter for long-term (current) use of other medications documented in this encounter Additional Health Concerns Infection Onset Date Last Indicated Resolved Time COVID - 19 09/30/2024 09/30/2024 09/30/2024 1:30 PM INTERNATIONAL OPERATIONS MANAGER Respiratory Rule-Out 09/30/2024 09/30/2024 024 1:30 PM INTERNATIONAL OPERATIONS MANAGER Assessment Noted Time PHQ-9 Depression Total Score: 0 02/11/20 24 1:26 PM CDT documented as of this encounter Care Teams Iphone Developer Relationship Specialty Start Date End Date Thong Martin MD #[address] [address] PCP - General Family Medicine 09/12/15 Carlos Gallardo MD #[address] [address] Consulting Physician Obstetrics & Gynecology 08/13/17 documented as of this encounter
--- OUTSIDE RECORDS SUMMARY | 2025-05-26 16:08 | XMS_ITS | Encounter Summary ---
Author Organization [facility] Address [address] [place] [address] Phone Care Team Providers Care User Experience Developer Name Role Phone Thogn Martin MD Primary Care Provider [phone] Carlos Gallardo MD Unavailable Unavailab le Reason for Visit * Reason Comments Medication Refill Encounter Details Date Type Department Care Team (Late st Contact Info) Description 11/19/2023 Refill [facility] #2 [place] [address] Thong Martin MD #[address] [address] Medication Refill Social History Tobacco Use Types [...] Encounter - Se, Allie L, RN - 11/20/2023 8:[address] Martin, is patient on both the 0.5 mg & 1 mg tabs? They are both on her medication list. I do not see any recent refills on PDMP for the 0.5 mg tabs. The 1 mg tab was last filled 10/11/23. GRINDER documented in this encounter Plan of Treatment Upcoming Encounters Date Type Department Care Team (Late st Contact Info) Description 05/28/2025 1:45 PM CDT Office Visit [facility] Family Medicine [facility] #2 [place] [address] Maren Anna PAC #2 [place] [address] documented as of this encounter Visit Diagnoses Diagnosis Primary insomnia Persistent disorder of initiating or maintaining sleep documented in this encounter Additional Health Concerns Infection Onset Date Last Indicated Resolved Time COVID - 19 09/30/2024 09/30/2024 09/30/2024 1:30 PM HOB GRINDER Respiratory Rule-Out 09/30/2024 09/30/2024 024 1:30 PM HOB GRINDER Assessment Noted Time PHQ-9 Depression Total Score: 0 12/14/19 23 11:02 AM HOB GRINDER documented as of this encounter Care Teams User Experience Developer Relationship Specialty Start Date End Date Thong Martin MD #[address] [address] PCP - General Family Medicine 09/12/15 Carlos Gallardo MD #[address] [address] Consulting Physician Obstetrics & Gynecology 08/13/17 documented as of this encounter
--- OUTSIDE RECORDS SUMMARY | 2025-05-26 16:08 | XMS_ITS | Encounter Summary ---
Author Organization [facility] Address [address] [place] [address] Phone Care Team Providers Care Manager Language Name Role Phone Thong Martin MD Primary Care Provider [phone] Carlos Gallardo MD Unavailable Unavailab le Reason for Visit * Reason Comments Medication Refill Encounter Details Date Type Department Care Team (Late st Contact Info) Description 05/06/2023 Refill [facility] #2 [place] [address] Thong Martin MD #[address] [address] Medication Refill Social History Tobacco Use Types [...] reordered on 05/08/2023 by Candy Prabhakar APRN, MULTIMEDIA INSTRUCTIONAL DESIGNER. * Telephone Encounter - Allie Fitch RN - 05/07/2023 3:48 PM CDT duplicate * Telephone Encounter - Mickie Wan RN - 05/07/2023 11:34 AM CDT Duplicate documented in this encounter Plan of Treatment Upcoming Encounters Date Type Department Care Team (Late st Contact Info) Description 05/28/2025 1:45 PM CDT Office Visit [facility] Family [facility] #2 [place] [address] Maren Anna PAC #2 [place] [address] documented as of this encounter Visit Diagnoses Diagnosis Primary insomnia Persistent disorder of initiating or maintaining sleep documented in this encounter Additional Health Concerns Infection Onset Date Last Indicated Resolved Time COVID - 19 09/30/2024 09/30/2024 09/30/2024 1:30 PM PUBLIC SERVICE ADMINISTRATOR Respiratory Rule-Out 09/30/2024 09/30/2024 024 1:30 PM PUBLIC SERVICE ADMINISTRATOR Assessment Noted Time PHQ-9 Depression Total Score: 0 12/14/19 23 11:02 AM PUBLIC SERVICE ADMINISTRATOR documented as of this encounter Care Teams Manager Language Relationship Specialty Start Date End Date Thong Martin MD #[address] [address] PCP - General Family Medicine 09/12/15 Carlos Gallardo MD #2 [place] [address] Consulting Physician Obstetrics & Gynecology 08/13/17 documented as of this encounter
--- OUTSIDE RECORDS SUMMARY | 2025-05-26 16:08 | XMS_ITS | Encounter Summary ---
Author Organization [facility] Address [address] [place] [address] Phone Care Team Providers Care Marble Helper Name Role Phone Thong Martin MD Primary Care Provider [phone] Carlos Gallardo MD Unavailable Unavailab le Reason for Visit * Reason Comments Medication Refill Encounter Details Date Type Department Care Team (Late st Contact Info) Description 08/12/2023 Refill [facility] #2 [place] [address] Thong Martin MD #[address] [address] Medication Refill Social History Tobacco Use Types [...] 06/26/23 Office Visit Shailesh Brennan APRN, [facility] 06/13/23 Office Visit Thong Martin MD [facility] [place] 12/14/22 Office Visit Thong Martin MD [facility] 11/30/22 Office Visit Shailesh Brennan APRN, CNP [facility] Showing recent visits within past 365 days [...] Group - Family Medicine - [place] #2 [place] [address] Maren Anna, RENÉ #2 [place] [address] documented as of this encounter Visit Diagnoses Diagnosis Encounter for long-term (current) use of medications Encounter for long-term (current) use of other medications documented in this encounter Additional Health Concerns Infection Onset Date Last Indicated Resolved Time COVID - 19 09/30/2024 09/30/2024 09/30/2024 1:30 PM INJECTION SPECIALIST Respiratory Rule-Out 09/30/2024 09/30/2024 024 1:30 PM INJECTION SPECIALIST Assessment Noted Time PHQ-9 Depression Total Score: 0 12/14/19 23 11:02 AM INJECTION SPECIALIST documented as of this encounter Care Teams Marble Helper Relationship Specialty Start Date End Date Thong Martin MD [address] [address] PCP - General Family Medicine 09/12/15 Carlos Gallardo MD #[address] [address] Consulting Physician Obstetrics & Gynecology 08/13/17 documented as of this encounter
--- OUTSIDE RECORDS SUMMARY | 2025-05-26 16:08 | XMS_ITS | Encounter Summary ---
Author Organization [facility] Address [address] [place] [address] Phone Care Team Providers Care Aws Architect Name Role Phone Tohng Martin MD Primary Care Provider [phone] Carlos Gallardo MD Unavailable Unavailab le Reason for Visit * Reason Comments Medication Refill Encounter Details Date Type Department Care Team (Late st Contact Info) Description 02/24/2023 Refill [facility] Medicine [facility] #2 [place] [address] Thong Martin MD #[address] [address] Medication Refill Social History Tobacco Use Types [...] Dept 12/14/22 Office Visit [facility] Office Visit Shailesh Brennan APRN, HOME WORKER [facility] 06/28/22 Office Visit Thong Martin MD [facility] 04/09/22 Office Visit Candy Prabhakar APRN, [facility] 03/01/22 Office Visit Maren Anna PAC [facility] Showing recent visits within past 365 days and meeting all other requirements Future Appointments No visits were found meeting these conditions. Showing future appointments within next 90 days and meeting all other requirements documented in this encounter Plan of Treatment Upcoming Encounters Date Type Department Care Team (Late st Contact Info) Description 05/28/2025 1:45 PM CDT Office Visit [facility] Medical Group - Family [facility] #2 [place] [address] Maren Anna, RENÉ #2 [place] [address] documented as of this encounter Visit Diagnoses Diagnosis Primary insomnia Persistent disorder of initiating or maintaining sleep documented in this encounter Additional Health Concerns Infection Onset Date Last Indicated Resolved Time COVID - 19 09/30/2024 09/30/2024 09/30/2024 1:30 PM SEAMER PANTY HOSE Respiratory Rule-Out 09/30/2024 09/30/2024 024 1:30 PM SEAMER PANTY HOSE Assessment Noted Time PHQ-9 Depression Total Score: 0 12/14/19 11:02 AM SEAMER PANTY HOSE documented as of this encounter Care Teams Aws Architect Relationship Specialty Start Date End Date Thong Martin MD #[address] [address] PCP - General Family Medicine 09/12/15 Carlos Gallardo MD #[address] [address] Consulting Physician Obstetrics & Gynecology 08/13/17 documented as of this encounter
--- OUTSIDE RECORDS SUMMARY | 2025-05-26 16:08 | XMS_ITS | Clinical Summary ---
Author Organization [facility] [employer] Address [address] [place] [address] Care Team Providers Care Inspector Rag Sorting Name Role Phone Unavailable Primary Care Provider Unavailabl e Source Comments [facility],non-owned Affiliates and Associated Physician Practices is amultiple site organization consisting of ambulatory clinics and hospital sitesin [place], [place], [place] and [place]. This disclosure is being madepursuant to the Care Everywhere program and may not contain all information available regarding this patient. Last updated 18.[facility] [employer] Social History Tobacco Use Types Packs/Day Years Used Date Smoking Tobacco: Never Assessed Comments Unknown Sex and Gender Information Value Date Recorded Sex Assigned at Not on file Legal Sex Female 6:06 PM USABILITY STRATEGIST Gender Identity Not on file Sexual Orientation [...] patient's age to complete this topic Insurance [facility]
--- OUTSIDE RECORDS SUMMARY | 2025-05-26 16:08 | XMS_ITS | Encounter Summary ---
Author Organization [facility] Address [address] [place] [address] Phone Care Team Providers Care Boner Meat Name Role Phone Thong Martin MD Primary Care Provider [phone] Carlos Gallardo MD Unavailable Unavailab le Reason for Visit * Reason Comments Medication Refill Encounter Details Date Type Department Care Team (Late st Contact Info) Description 02/07/2024 Refill [facility] - Family Medicine [facility] [address] [place] [address] Thong Martin MD [address] [address] Medication Refill Social History Tobacco Use Types Packs/Day Years Used Date Smoking Tobacco: Never Smokeless Tobacco: Never Alcohol Use Standard Drinks/Week Comments Yes 0 (1 standard drink = 0.6 oz pur e alcohol) rarely [facility] Utilities Answer Date Recorded In the past 12 months has [employer] electric, gas, oil, or water company threatened [...] week 02/11/2024 How often do you attend [facility] or christian services? Never 02/11/2024 Do you belong to any clubs o r organizations such as latter-day groups, unions, fraternal or athletic groups, or [...] Total Score - Questions 1-9 0 01/20 [facility] ional [facility] - Occupational [...] Dept 08/15/23 Office Visit Candy Prabhakar APRN, WINDOW SHADE RING SEWER Vaibhav Allen 06/26/23 Office Visit Shailesh Brennan APRN, SORAYA Mattsonkike Allen 06/13/23 Office Visit Thong Martin MD [facility] Showing recent visits within past 365 days and meeting all other requirements Future Appointments No visits were found meeting these conditions. Showing future appointments within next 90 days and meeting all other requirements documented in this encounter Plan of Treatment Upcoming Encounters Date Type Department Care Team (Late st Contact Info) Description 05/28/2025 1:45 PM CDT Office Visit [facility] Medical Group - Family Medicine - [place] [address] [place] [address] Maren Anna PAC [address]2 [place] [address] documented as of this encounter Visit Diagnoses Diagnosis Encounter for long-term (current) use of medications Encounter for long-term (current) use of other medications documented in this encounter Additional Health Concerns Infection Onset Date Last Indicated Resolved Time COVID - 19 09/30/2024 09/30/2024 09/30/2024 1:30 PM VIDEO GAME CREATOR Respiratory Rule-Out 09/30/2024 09/30/2024 024 1:30 PM VIDEO GAME CREATOR Assessment Noted Time PHQ-9 Depression Total Score: 0 12/14/19 23 11:02 AM VIDEO GAME CREATOR documented as of this encounter Care Teams Boner Meat Relationship Specialty Start Date End Date Thong Martin MD #[address] [address] PCP - General Family Medicine 09/12/15 Carlos Gallardo MD #[address] [address] Consulting Physician Obstetrics & Gynecology 08/13/17 documented as of this encounter
--- OUTSIDE RECORDS SUMMARY | 2025-05-26 16:08 | XMS_ITS | Encounter Summary ---
Author Organization [facility] Address [address] [place] [address] Phone Care Team Providers Care Evaluator Name Role Phone Thong Martin MD Primary Care Provider [phone] Carlos Gallardo MD Unavailable Unavailab le Reason for Visit * Reason Comments Medication Refill Encounter Details Date Type Department Care Team (Late st Contact Info) Description 07/18/2024 Refill [facility] - Family Medicine [facility] [address]2 [place] [address] Thong Martin MD #[address] [address] Medication Refill Social History Tobacco Use Types Packs/Day Years Used Date Smoking Tobacco: Never Smokeless Tobacco: Never Alcohol Use Standard Drinks/Week Comments Yes 0 (1 standard drink = 0.6 oz pur e alcohol) rarely [facility] Utilities Answer Date Recorded In the past 12 months has [employer] electric, gas, oil, or water company threatened [...] week 07/16/2024 How often do you attend [facility] or uatsdin services? Never 07/16/2024 Do you belong to any clubs o r organizations such as advent groups, unions, fraternal or athletic groups, or [...] Total Score - Questions 1-9 0 05/21 [facility] of Occupat ional [facility] - Occupational Stress Questionnaire Answer Date [...] any time in the past 12 m [facility], were you homeless or living in [...] [facility] [address] [place] [address] Maren Anna, RENÉ [address]2 [place] [address] documented as of this encounter Visit Diagnoses Not on filedocumented in this encounter Additional Health Concerns Infection Onset Date Last Indicated Resolved Time COVID - 19 09/30/2024 09/30/2024 09/30/2024 1:30 PM PORTER LUGGAGE Respiratory Rule-Out 09/30/2024 09/30/202411/2 024 1:30 PM PORTER LUGGAGE Assessment Noted Time PHQ-9 Depression Total Score: 0 06/02/20 24 10:23 AM CDT documented as of this encounter Care Teams Evaluator Relationship Specialty Start Date End Date Thong Martin MD #2 [facility] [address] [place] [address] PCP - General Family Medicine 09/12/15 Carlos Gallardo MD #2 [facility] [address] [place] [address] Consulting Physician Obstetrics & Gynecology 08/13/17 documented as of this encounter
--- OUTSIDE RECORDS SUMMARY | 2025-05-26 16:08 | XMS_ITS | Encounter Summary ---
Author Organization [facility] Address [address] [place] [address] Phone Care Team Providers Care Hadoop Infrastructure Architect Name Role Phone Thong Martin MD Primary Care Provider [phone] Carlos Gallardo MD Unavailable Unavailab le Reason for Visit * Reason Comments Medication Refill Encounter Details Date Type Department Care Team (Late st Contact Info) Description 06/24/2023 Refill [facility] [address]2 [place] [address] Thong Martin MD #[address] [address] Medication Refill Social History Tobacco Use Types [...] Dept 06/13/23 Office Visit Thong Martin MD [facility] Showing recent visits within past 182 days [...] Group - Family Medicine - [place] [address]2 [place] [address] Maren Anna PAC [address] [place] [address] documented as of this encounter Visit Diagnoses Not on filedocumented in this encounter Additional Health Concerns Infection Onset Date Last Indicated Resolved Time COVID - 19 09/30/2024 09/30/2024 09/30/2024 1:30 PM DETECTIVE SUPERVISOR Respiratory Rule-Out 09/30/2024 09/30/2024 024 1:30 PM DETECTIVE SUPERVISOR Assessment Noted Time PHQ-9 Depression Total Score: 0 12/14/19 11:02 AM DETECTIVE SUPERVISOR documented as of this encounter Care Teams Hadoop Infrastructure Architect Relationship Specialty Start Date End Date Thong Martin MD #[address] [address] PCP - General Family Medicine 09/12/15 Carlos Gallardo MD #[address] [address] Consulting Physician Obstetrics & Gynecology 08/13/17 documented as of this encounter
[2025-05-26 16:09] VITALS: BP 150/98; PULSE 97; RESP 16; TEMP 36.9; O2SAT 100
--- OUTSIDE RECORDS SUMMARY | 2025-05-26 16:09 | XMS_ITS | Clinical Summary ---
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 Tonsillar hypertrophy 01/04/2025 Morbid obesity with body mass index of 40.0-49.9 03/30/2019 Anxiety 06/06/2017 Irritable bowel syndrome 07/12/2015 Overview (01/25/2017): IBS Knee pain 03/06/2014 Overview (01/25/2017): Knee pain Depression 07/07/2013 Overview (01/25/2017): Depression Lump or mass in breast 01/13/2010 Encounters Date Type Department Care Team Description 05/10/2025 Telephone [facility] [address] [place] [address] Mahsa Marrero, Appointment Reminder Call 05/07/2025 Telephone [facility] [address] [place] [address] aMhsa Marrero DO 05/07/2025 Telephone [facility] [address] [place] [address] Mahsa Marrero DO Appointment Reminder Call from [...] on file Legal Sex Female 8:43 PM FIRE LOOKOUT Gender Identity Not on file Sexual Orientation [...] PCV) 01/11/2011 Cervical Cancer Screening 09/09/2017 09/09/2016 HPV Vaccines (1 - 3-dose SCDM series) 01/11/2019 DTaP/Tdap/Td Vaccine (2 - Td or Tdap) 02/17/2024 Influenza Vaccine (#1) 2025 08/04/2018, 2013 Procedures Procedure Name Priority Date/Time Associated Diagnosis Comments GENITAL FLUID PAP SMEAR, THIN PREP WITH HPV EVALUATION Routine 09/09/2016 6:00 PM FIRE LOOKOUT from Last 3 Months or Most Recently Relevant to Health Maintenance Results * Genital fluid pap smear, thin prep with HPV evaluation (09/09/2016 6:00 PM FIRE LOOKOUT) Clinical information SEE NOTE CDR HISTORICAL RESULTS [...] computer assisted technology. Genital 09/09/2016 6:00 PM FIRE LOOKOUT Narrative CDR HISTORICAL RESULTS - 09/17/2016 6:00 AM FIRE LOOKOUT Test performed at [facility] [address] Director: SHIRLEY BOUCHER MD us Historical Provider LAB CYTOLOGY ORDERABLES F inal Result CDR HISTORICAL RESULTS from Last 3 Months or Most Recently Relevant to Health Maintenance Insurance CIGNA CIGNA AETNA SIG [id number] Care Teams Wildland Firefighter Relationship Specialty Start Date End Date Thong Martin MD [address] [place] [address] PCP - General 07/12/15
--- OUTSIDE RECORDS SUMMARY | 2025-05-26 16:09 | XMS_ITS | Encounter Summary ---
Author Organization [facility] Address [address] [place] [address] Care Team Providers Care Front End Architect Name Role Phone Thong Martin MD Primary Care Provider [phone] Encounter Details Date Type Department Care Team (Late st Contact Info) Description 05/26/2025 External Device Data STL ABSTRACTION Provider, Abstract NO ADDRESS ON FILE Social History Tobacco Use Types Packs/Day Years Used Date Smoking Tobacco: Never Smokeless Tobacco: Never Alcohol Use Standard Drinks/Week Comments Yes 0 (1 standard drink = 0.6 oz pur e alcohol) rarely Comments No Sex and Gender Information Value Date Recorded Sex Assigned at Not on file Legal Sex Female 5:52 AM CHINCHILLA FARMER Gender Identity Not on file Sexual Orientation Not on file documented as of this encounter Plan of Treatment Not on file documented as of this encounter Visit Diagnoses Not on filedocumented in this encounter Care Teams Front End Architect Relationship Specialty Start Date End Date Thong Martin MD #[address] [address] PCP - General Internal Medicine 07/03/19 documented as of this encounter
--- OUTSIDE RECORDS SUMMARY | 2025-05-26 16:09 | XMS_ITS | Encounter Summary ---
Author Organization [facility] Address [address] [place] [address] Phone Care Team Providers Care Truck Driving Name Role Phone Thong Martin MD Primary Care Provider [phone] Carlos Gallardo MD Unavailable Unavailab le Reason for Visit * Reason Comments Medication Refill Encounter Details Date Type Department Care Team (Late st Contact Info) Description 09/03/2022 Refill [facility] Family Medicine [facility] [address] [place] [address] Thong Martin MD #[address] [address] Medication Refill Social History Tobacco Use Types [...] Needs apt with PCP to discuss need. R MILL OPERATOR documented in this encounter Plan of Treatment Upcoming Encounters Date Type Department Care Team (Late st Contact Info) Description 05/28/2025 1:45 PM CDT Office Visit [facility] - Family Medicine [facility] [address] [place] [address] Maren Anna PAC [address] [place] [address] documented as of this encounter Visit Diagnoses Not on filedocumented in this encounter Additional Health Concerns Infection Onset Date Last Indicated Resolved Time COVID - 19 09/30/2024 09/30/2024 09/30/2024 1:30 PM AUGER MILL OPERATOR Respiratory Rule-Out 09/30/2024 09/30/2024 024 1:30 PM AUGER MILL OPERATOR Assessment Noted Time PHQ-9 Depression Total Score: 0 01/24/20 22 12:00 PM CDT documented as of this encounter Care Teams Truck Driving Relationship Specialty Start Date End Date Thong Martin MD #[address] [address] PCP - General Family Medicine 09/12/15 Carlos Gallardo MD #[address] [address] Consulting Physician Obstetrics & Gynecology 08/13/17 documented as of this encounter
--- OUTSIDE RECORDS SUMMARY | 2025-05-26 16:09 | XMS_ITS ---
Author Organization [facility] Address [address] [place], [place] [address] Care Team Providers Care Dance Critic Name Role Phone Saunders Conner Unavailable [phone] Medications Medication SIG (Take, Route, Frequency, Duration) [...] [address] [place], [place] [address] 01/06/2025 Conner Saunders Vitamin deficiency, unspecified E56.9 [...] AND FERRITIN PANEL (5616) COMPREHENSIVE METABOLIC PANEL (94[address]) CBC (H/H, RBC, INDICES, WBC, PLT) (1759) 01/06/2025 HEMOGLOBIN A1c (496) 01/06/2025 VITAMIN B12/FOLATE, SERUM PANEL (7065) 0 01/06/2025 TSH (899) 01/06/2025 VITAMIN D,25-OH,TOTAL,IA (10099) 025 ZINC (945) 01/06/2025 VITAMIN B1 (THIAMINE), SERUM/PLASMA, LC/ MS/MS (47351) 01/06/2025 Procedure Notes * Category Sub-Category Detail [...] arise; and continue to follow-up with bariatric merchandise carrier. There are no barriers to education today: [...] * SAUL COCHRAN ADOB:1990 (35 yo F)Acc No.[id number]:01/06/2025 Progress Notes Patient: SAUL GARNER Provider: Mihaela Saunders DO :1990 A ge:34 Y S ex:Female Date:01/06/2025 Address:[address], [facility] Subjective: * Chief Complaints: * * HPI: [...] reflux dis : Yes Obesity : Yes tobacco stripping machine operator pn : Yes, ,. * Surgical History: L umpectomy of breast (932314996) 10/21/2007, Cholecystectomy 10/21/2010, section (29325047) 10/21/2017, Esophagogastroduodenoscopy ([id number]) Dr. Conner Saunders; [facility] 04/14/2019, Esophagogastroduodenoscopy ([id number]) Dr. Conner Saunders; [facility] 05/06/2020, Gastric bypass Dr. Conner Saunders; [facility] 07/13/2019. * Medications: U nknown ALPRAZolam [...] PANEL (5616) L AB: COMPREHENSIVE METABOLIC PANEL (57100) L AB: CBC (H/H, RBC, INDICES, WBC, PLT) (1759) L AB: HEMOGLOBIN A1c (496) L AB: VITAMIN B12/FOLATE, SERUM PANEL (7065) L AB: TSH (899) L AB: VITAMIN D,25-OH,TOTAL,IA (55136) L AB: ZINC (945) L AB: VITAMIN B1 (THIAMINE), SERUM/PLASMA, LC/MS/MS (25310) 3. O ther specified personal risk factors, not elsewhere classified L AB: LIPID PANEL, STANDARD (7600) L AB: IRON, TIBC AND FERRITIN PANEL (5616) L AB: COMPREHENSIVE METABOLIC PANEL (63348) L AB: CBC (H/H, RBC, INDICES, WBC, PLT) (1759) L AB: HEMOGLOBIN A1c (496) L AB: VITAMIN B12/FOLATE, SERUM PANEL (7065) L AB: TSH (899) L AB: VITAMIN D,25-OH,TOTAL,IA (64918) L AB: ZINC (945) L AB: VITAMIN B1 (THIAMINE), SERUM/PLASMA, LC/MS/MS (54632) 4. S /P bariatric surgery L AB: LIPID PANEL, STANDARD (7600) L AB: IRON, TIBC AND FERRITIN PANEL (5616) L AB: COMPREHENSIVE METABOLIC PANEL ([address]) L AB: CBC (H/H, RBC, INDICES, WBC, PLT) (1759) L AB: HEMOGLOBIN A1c (496) L AB: VITAMIN B12/FOLATE, SERUM PANEL (7065) L AB: TSH (899) L AB: VITAMIN D,25-OH,TOTAL,IA (74297) L AB: ZINC (945) L AB: VITAMIN B1 (THIAMINE), SERUM/PLASMA, LC/MS/MS (12616) * Procedures: P ost Operative Plan: Education: [...] arise; and continue to follow-up with bariatric merchandise carrier. There are no barriers to education today [...] * Electronic signature of Stewart Saunders DO, [id number] on 05/26/2025 at 04:08 PM CDT Sign off status: Pending * Provider: Mihaela Saunders DO Date: 0 01/06/2025 Generated for Paulette garcia/Derrell/Laloitting on: 0 05/26/2025 04:08 PM CDT History and Physical Notes * [...] none Has patient been [facility]?: No Has patient undergone any po st-bariatric [...]
--- OUTSIDE RECORDS SUMMARY | 2025-05-26 16:09 | XMS_ITS | Encounter Summary ---
Author Organization [facility] Address [address] [place] [address] Phone Care Team Providers Care Farmworker Field Crop Name Role Phone Thong Martin MD Primary Care Provider [phone] Carlos Gallardo MD Unavailable Unavailab le Reason for Visit * Reason Comments Medication Refill Encounter Details Date Type Department Care Team (Late st Contact Info) Description 01/20/2023 Refill [facility] - Family [facility] [address] [place] [address] Thong Martin MD #[address] [address] Medication Refill Social History Tobacco Use Types [...] Dept 12/14/22 Office Visit Thong Martin MD [facility] 11/30/22 Office Visit Shailesh Brennan APRN, SORAYA [facility]22 [facility] 04/09/22 Office Visit Candy Prabhakar APRN, ABATTOIR SUPERVISOR [facility] 03/01/22 Office Visit Maren Anna PAC [facility] 01/26/22 Office Visit Candy Prabhakar APRN, [facility] 01/23/22 Office Visit Thong Martin MD [facility] Showing recent visits within past 365 days and meeting all other requirements Future Appointments No visits were found meeting these conditions. Showing future appointments within next 90 days and meeting all other requirements documented in this encounter Plan of Treatment Upcoming Encounters Date Type Department Care Team (Late st Contact Info) Description 05/28/2025 1:45 PM CDT Office Visit [facility] Group - Family Medicine [facility] [address] [place] [address] Maren Anna, RENÉ [address] [place] [address] documented as of this encounter Visit Diagnoses Diagnosis Primary insomnia Persistent disorder of initiating or maintaining sleep documented in this encounter Additional Health Concerns Infection Onset Date Last Indicated Resolved Time COVID - 19 09/30/2024 09/30/2024 09/30/2024 1:30 PM COTTON JAMMER Respiratory Rule-Out 09/30/2024 09/30/2024 024 1:30 PM COTTON JAMMER Assessment Noted Time PHQ-9 Depression Total Score: 0 12/14/19 23 11:02 AM COTTON JAMMER documented as of this encounter Care Teams Farmworker Field Crop Relationship Specialty Start Date End Date Thong Martin MD #[address] [address] PCP - General Family Medicine 09/12/15 Carlos Gallardo MD #[address] [address] Consulting Physician Obstetrics & Gynecology 08/13/17 documented as of this encounter
--- OUTSIDE RECORDS SUMMARY | 2025-05-26 16:09 | XMS_ITS | Encounter Summary ---
Author Organization [facility] Address [address] [place] [address] Phone Care Team Providers Care Theater Teacher Name Role Phone Thong Martin MD Primary Care Provider [phone] Carlos Gallardo MD Unavailable Unavailab le Reason for Visit * Reason Comments Medication Refill Encounter Details Date Type Department Care Team (Late st Contact Info) Description 04/28/2025 Refill [facility] #2 [place] [address] Thong Martin MD #[address] [address] Medication Refill Social History Tobacco Use Types Packs/Day Years Used Date Smoking Tobacco: Never Smokeless Tobacco: Never Alcohol Use Standard Drinks/Week Comments Yes 0 (1 standard drink = 0.6 oz pur e alcohol) rarely [facility] Utilities Answer Date Recorded In the past 12 months has [employer] electric, gas, oil, or water company threatened [...] week 07/16/2024 How often do you attend [facility] or episcopalian services? Never 07/16/2024 Do you belong to any clubs o r organizations such as adventism groups, unions, fraternal or athletic groups, or [...] Total Score - Questions 1-9 0 09/20 [facility] of Occupat ional [facility] - Occupational Stress Questionnaire Answer Date [...] place to sleep or slept in a skilled nursing (including now)? No 02/11/2024 Housing Stability Vital Sign Answer Tomás e Recorded In the last 12 months, was t here a time when you were not able to pay the mortgage or rent on time? No 07/16/2024 In the past 12 months, how m any times have you moved where you were living? 0 07/16/2024 At any time in the past 12 m [facility], were you homeless or living in a skilled nursing (including now)? No 07/16/2024 Education Answer Date [...] Visit [facility] [address] [place] [address] Maren Anna PAC [address] [place] [address] documented as of this encounter Visit Diagnoses Not on filedocumented in this encounter Additional Health Concerns Assessment Noted Time PHQ-9 Depression Total Score: 0 09/30/20 24 1:07 PM MANAGER OF CORPORATE documented as of this encounter Care Teams Theater Teacher Relationship Specialty Start Date End Date Thong Martin MD #2 [facility] [address] [place] [address] PCP - General Family Medicine 09/12/15 Carlos Gallardo MD #[address] [facility] [address] [place] [address] Consulting Physician Obstetrics & Gynecology 08/13/17 documented as of this encounter
--- OUTSIDE RECORDS SUMMARY | 2025-05-26 16:09 | XMS_ITS | Encounter Summary ---
Author Organization [facility] Address [address] [place] [address] Care Team Providers Care Large Sheetfed Press Operator Name Role Phone Thong Martin MD Primary Care Provider [phone] Encounter Details Date Type Department Care Team (Late st Contact Info) Description 05/25/2025 External Device Data STL ABSTRACTION Provider, Abstract NO ADDRESS ON FILE Social History Tobacco Use Types Packs/Day Years Used Date Smoking Tobacco: Never Smokeless Tobacco: Never Alcohol Use Standard Drinks/Week Comments Yes 0 (1 standard drink = 0.6 oz pur e alcohol) rarely Comments No Sex and Gender Information Value Date Recorded Sex Assigned at Not on file Legal Sex Female 5:52 AM INTEGRITY CONSULTANT Gender Identity Not on file Sexual Orientation Not on file documented as of this encounter Plan of Treatment Not on file documented as of this encounter Visit Diagnoses Not on filedocumented in this encounter Care Teams Large Sheetfed Press Operator Relationship Specialty Start Date End Date Thong Martin MD #[address] [address] PCP - General Internal Medicine 07/03/19 documented as of this encounter
--- OUTSIDE RECORDS SUMMARY | 2025-05-26 16:09 | XMS_ITS ---
Author Organization [facility] Address [address] [place], [place] [address] Care Team Providers Care Tape Sewing Machine Operator Name Role Phone Conner Saunders DO [phone] REASON FOR VISIT egd-ulcer @1p pt aware Encounters Encounter Location Date Provider Diagnosis [facility] [address] [place] [address] 11/06/2024 Conner Saunders Plan Of Treatment No Information Progress Notes * SAUL COCHRAN ADOB:1990 (35 yo F)Acc No.[id number]:11/06/2024 Patient: Lennie SAUL HERNANDEZ Provider: Mihaela Saunders DO :1990 A ge:34 Y S ex:Female Date:11/06/2024 Address[facility] * Billing Information: * Visit Code: * Procedure Codes: * Electronic signature of Stewart Saunders DO, [id number] on 05/26/2025 at 04:08 PM CDT Sign off status: Pending * Provider: Mihaela Saunders DO Date: 11/06/2024 Generated for Paulette garcia/Derrell/eTamansmitting on: 05/26/2025 04:08 PM CDT
--- OUTSIDE RECORDS SUMMARY | 2025-05-26 16:09 | XMS_ITS | Patient Health Record ---
Author Organization [facility] Address [address] [place], [place] [id number] Care Team Providers Care Team Assembler Name Role Phone Conner Saunders DO Unavailable [phone] Allergies No Known Allergies Reason For Referral [...] W/U Status Risk Notes Problem Vitamin deficiency (77007361) Vitamin deficiency, unspecified (E56.9) 4 Active confirmed Problem Obstructive sleep apnea syndrome (disorder) (35330438) Obstructive sleep apnea (adult) (pediatric) (G47.33) 4 Active confirmed Problem Gastro-esophageal reflux disease without esophagitis (963740725) Gastro-esophagea l reflux disease without esophagitis (K21.9) 4 Active confirmed Problem Intestinal malabsorption (290868259) Intestinal malabsorption, unspecified (K90.9) 4 Active confirmed Problem Post-surgical malabsorption (disorder) (323554502) Postsurgical malabsorption, 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) 4 Active confirmed Problem Family history of diabetes mellitus (161106717) Family history of diabetes mellitus (Z83.3) 4 Active confirmed Problem History of peptic ulcer (135619694) Personal history of peptic ulcer disease (Z87.11) 4 Active confirmed Problem Personal risk factor (364980985) Other specified personal risk factors, not elsewhere classified (Z91.89) 4 Active confirmed Problem History of bariatric surgical procedure (663441902) Bariatric surgery status (Z98.84) 4 Active confirmed Problem Depression (514966116) Depression, unspecified (F32.A) 4 Active confirmed Problem Body mass index 25-29 - overweight (750781414) Body mass index (BMI) 27.0-27.9, adult (Z68.27) [...] Encounter Location Date Provider Diagnosis [facility] [address] [place] [address] 11/06/2024 [facility] [address] [place], [place] [id number] 10/28/2024 Conner Saunders S/P gastric bypass Z98.84 ; Nicotine use Z72.0 ; Epigastric pain R10.13 ; Gastro-esophageal reflux disease without esophagitis K21.9 ; History of bariatric surgery Z98.84 ; Nausea and vomiting in adult R11.2 and Chronic gastritis without bleeding, unspecified gastritis type K29.50 [facility] [address] [place], [place] [id number] 10/16/2024 Conner Saunders Assessments Encounter Date Diagnosis [...] Date [employer] [address] [place] [address] [id number] SAUL BOWDEN Self - patient is the insured Medical (General) History Medical History History ICD Code Problems: Depressive disorder Family history of diabetes mellitus Gastroesophageal reflux disease History of bypass of stomach History of peptic ulcer Obstructive sleep apnea syndrome , Gastroesophageal reflux dis : Yes 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 Conner Saunders; [facility] 04/14/2019 Esophagogastroduodenoscopy ( 98505615) Dr. Conner Saunders; [facility] 05/06/[address] Conner Saunders; [facility] 07/13/2019
--- OUTSIDE RECORDS SUMMARY | 2025-05-26 16:09 | XMS_ITS | Encounter Summary ---
Author Organization [facility] Address [address] [place] [address] Phone Care Team Providers Care Filler Spreader Name Role Phone Thong Martin MD Primary Care Provider [phone] Carlos Gallardo MD Unavailable Unavailab le Reason for Visit * Reason Comments Medication Refill Encounter Details Date Type Department Care Team (Late st Contact Info) Description 12/17/2022 Refill [facility] - [facility] [address] [place] [address] Thong Martin MD [address] [address] Medication Refill Social History Tobacco Use Types [...] Coronavirus/COVID-19? No / Unsure 12/14/2022 10:49 AM CURRICULUM SUPERVISOR documented as of this encounter Miscellaneous Notes [...] Dept 12/14/22 Office Visit Thong Martin MD [facility] 11/30/22 Office Visit Shailesh Brennan APRN, SORAYA [facility] 06/28/22 Office Visit Thong Martin MD [facility] Showing recent visits within past 182 days and meeting all other requirements Future Appointments No visits were found meeting these conditions. Showing future appointments within next 90 days and meeting all other requirements Passed - Has an encounter in the past 6 months with a depression, anxiety, adjustment disorder, OCD, or PTSD visit diagnosis ICULUM SUPERVISOR documented in this encounter Plan of Treatment Upcoming Encounters Date Type Department Care Team (Late st Contact Info) Description 05/28/2025 1:45 PM CDT Office Visit [facility] - Family Medicine - [place] [address] [place] [address] Maren Anna, [address] [place] [address] documented as of this encounter Visit Diagnoses Not on filedocumented in this encounter Additional Health Concerns Infection Onset Date Last Indicated Resolved Time COVID - 19 09/30/2024 09/30/202409/3009/30/2024 1:30 PM CURRICULUM SUPERVISOR Respiratory Rule-Out 09/30/2024 09/30/2024 024 1:30 PM CURRICULUM SUPERVISOR Assessment Noted Time PHQ-9 Depression Total Score: 0 12/14/19 11:02 AM CURRICULUM SUPERVISOR documented as of this encounter Care Teams Filler Spreader Relationship Specialty Start Date End Date Thong Martin MD [address] [address] PCP - General Family Medicine 09/12/15 Carlos Gallardo MD [address] [address] Consulting Physician Obstetrics & Gynecology 08/13/17 documented as of this encounter
--- OUTSIDE RECORDS SUMMARY | 2025-05-26 16:09 | XMS_ITS | Clinical Summary ---
Author Organization [facility] [place] Address [address] [place] [address] Phone Care Team Providers Care Textile Finisher Name Role Phone Thong Martin MD Primary Care Provider [phone] Allergies No known active allergies Medications norethindrone-e [...] Encounters Date Type Department Care Team Description 05/26/2025 External Device Data [facility] Provider, Abstract 05/25/2025 External Device Data [facility] Provider, Abstract 05/05/2025 External Device Data [facility] Provider, [...] on file Legal Sex Female 5:52 AM SPANISH INTERPRETER/TRANSLATOR Gender Identity Not on file Sexual Orientation Not on file Last Filed Vital Signs Vital Sign Reading Time Taken Comments Blood Pressure 101/61 11/06/2024 1:27 PM SPANISH INTERPRETER/TRANSLATOR Pulse 65 11/06/2024 1:27 PM SPANISH INTERPRETER/TRANSLATOR Temperature 36.7 C (98 F) 11/06/2024 1:13 PM SPANISH INTERPRETER/TRANSLATOR Respiratory Rate 16 11/06/2024 1:27 PM SPANISH INTERPRETER/TRANSLATOR Oxygen Saturation 100% 11/06/2024 1:27 PM SPANISH INTERPRETER/TRANSLATOR Inhaled Oxygen Concentration - - Weight 55.8 kg (123 lb) 11/06/2024 12:27 PM SPANISH INTERPRETER/TRANSLATOR Height 154.9 cm (5' 1) 11/06/2024 12:27 PM SPANISH INTERPRETER/TRANSLATOR Body Mass Index 23.24 11/06/2024 12:27 PM SPANISH INTERPRETER/TRANSLATOR Plan of Treatment Health Maintenance Due Date Last Done Comments HPV VACCINES (1 - 3-dose series) 01/11/2007 HEPATITIS B VACCINES (1 of 3 - 19+ 3-dose series) 01/11/2011 HPV/Cotest (21-29) 01/11/2013 CERVICAL CANCER SCREENING 01/11/2022 HPV/Cotest (30-65) 01/11/2022 PAP SMEAR 01/11/2022 09/09/2016 DTAP/TDAP/TD VACCINES (2 - T d or Tdap) 02/17/2024 02/16/2014 INFLUENZA VACCINE (#1) 2025 9, 08/04/2018, 06/30/2018, Additional history exists Insurance [facility] Advance Directives For more information, please contact: [phone] * Full Code (Latest Code Status on [...] 10:47 AM 07/13/2019 11:52 AM Care Teams Textile Finisher Relationship Specialty Start Date End Date Thong Martin MD [address] [address] PCP - General Internal Medicine 07/03/19
--- NOTE | 2025-05-26 16:34 | ED_ITS ---
HPI - Extremity Injury (Upper) General Chief Complaint: Extremity Injury, Upper Stated Complaint: Finger Injury/Right Hand Time Seen by Provider: 05/26/25 16:26 Source: patient and RN notes reviewed Mode of arrival: ambulatory Limitations: no limitations History of Present Illness HPI narrative: Patient presents today complaining of right hand pain. Patient states she punched a wall 2 days ago and is complaining of pain to the right 5th metacarpal and 5th finger. Denies numbness or tingling in the hand or fingers. Currently rates her pain 5/10, which increases with movement. She has tried Tylenol without improvement. She has been ryan taping the 4th and 5th fingers together without improvement. Related Data Home Medications ?Medication ?Instructions ?Recorded ?Confirmed ?Last Taken ?Type norethindrone 1 mg-ethinyl 1 tablet PO DAILY 05/15/21 05/25/24 Unknown History estradiol 10 mcg (24)-iron 10 mcg(2) tablet (Lo Loestrin Fe) alprazolam 1 mg tablet See Rx Instructions .Route 05/25/24 05/25/24 Unknown History .COMPLEX PRN Anxiety omeprazole 40 mg capsule,delayed mg 05/25/24 Unknown History release paroxetine HCl 37.5 mg mg PO 05/25/24 Unknown History tablet,extended release 24 hr albuterol sulfate 90 mcg/actuation inhalation 05/26/25 Unknown History aerosol inhaler Allergies Allergy/AdvReac Type Severity Reaction Status Date / Time No Known Allergies Allergy Verified 05/26/25 16:13 [facility] Past Medical History Medical History GERD (gastroesophageal reflux disease) Ulcer Anxiety and depression Surgical History Surgical History Hx of cholecystectomy History of weight loss surgery History of breast biopsy Family History Family History Mother Family history of blood dyscrasia Hypertension Family history of elevated blood lipids Grandparent Carcinoma of colon Other Diabetes mellitus Social History Social History Smoking status: Current every day smoker Tobacco type: e-cigarettes/vaping Second hand tobacco smoke exposure: No Alcohol intake: never Comments At time of signature, I have reviewed and agree with nursing past medical, surgical, social and family history unless otherwise noted. Please see nursing chart for further information. There is no relevant family history pertinent to the presenting complaint Exam Narrative: GENERAL: Well-appearing, well-nourished, and in no acute distress. HEAD: Normocephalic, atraumatic. EYES: EOMI. No redness or drainage. Conjunctivae normal. ENT: Mucous membranes pink and moist. NECK: Normal AROM. CHEST: No respiratory distress. EXTREMITIES: Right hand: Tenderness to the 5th metacarpal and proximal phalanx with moderate ecchymosis overlying the 4th and 5th metacarpals and 5th finger. Moderate edema to the finger and hand. Distal sensation intact. Capillary refill normal. Radial pulse normal. Full range of motion of the wrist. Decreased range of motion of the 5th finger due to pain. SKIN: Warm, dry, no rash. Capillary refill normal. Normal skin turgor. NEURO: No focal deficits. Alert and oriented x3. Gait steady. PSYCH: Normal affect. No signs of depression or anxiety. Course Course Level of Care: Express Care Visit Vital Signs Vital signs: Vital Signs Temperature 98.4 F 05/26/25 16:09 Pulse Rate 97 05/26/25 16:09 Respiratory Rate 16 05/26/25 16:09 Blood Pressure 150/98 H 05/26/25 16:09 Pulse Oximetry 100 05/26/25 16:09 Oxygen Delivery Room Air 05/26/25 16:09 Temperature 98.4 F 05/26/25 16:09 Pulse Rate 97 05/26/25 16:09 Respiratory Rate 16 05/26/25 16:09 Blood Pressure 150/98 H 05/26/25 16:09 Pulse Oximetry 100 05/26/25 16:09 Oxygen Delivery Room Air 05/26/25 16:09 Reviewed MDM - Extremity Injury (Upper) MDM Narrative Medical decision making narrative: 35-year-old female patient presents today with right hand pain, swelling, bruising after punching a wall 2 days ago. Exam shows moderate swelling, bruising to the dorsum of the hand overlying the 4th and 5th metacarpals and the 5th finger and tenderness to same. Neurovascularly intact with decreased range of motion due to pain. X-ray is negative for acute findings. Recommend NSAIDs, ice, elevation with orthopedic or PCP follow-up in 7-10 days if symptoms are not improving. Patient agrees with plan. Vital signs stable. Anticipatory guidance given. Differential Diagnosis Differential diagnosis: Likely other (Hand contusion, hand fracture, finger fracture) Imaging Data Radiologist's impression: ITS Impressions Hand X-Ray 05/26/25 16:57 IMPRESSION: 1. No osseous abnormality. Critical Care Time Critical Care Time Critical Care Time: No Discharge Plan Discharge Clinical Impression: Contusion of hand, right Qualifiers: Encounter type: initial encounter Qualified Code(s): S60.221A - Contusion of right hand, initial encounter Patient Disposition: Home Condition: Stable Instructions: Contusion in Adults (ED) Additional Instructions: Your x-rays negative for fracture. Elevate and ice the hand. Take Tylenol or ibuprofen if needed for pain. Follow-up with your PCP or orthopedics in 7-10 days if symptoms are not improving. Patient Language: [place] Prescriptions: No Action alprazolam 1 mg tablet See Rx Instructions .ROUTE .COMPLEX PRN (Reason: Anxiety) Rx Instructions: ass prescribedd omeprazole 40 mg capsule,delayed release(DR/EC) paroxetine HCl 37.5 mg tablet extended release 24 hr PO albuterol sulfate 90 mcg/actuation HFA aerosol inhaler INHALATION Lo Loestrin Fe 1 mg-10 mcg (24)/10 mcg (2) tablet 1 tablet PO DAILY Follow-up/Referrals: Mario,Thong Wells MD [Primary Care Provider] - Joe Sanchez MD [Physician] - Time of Disposition: 17:06
== END 2025-05-26 17:10 | disposition home or self-care (01) ==
PROVIDERS: Emergency Provider Nurse Practitioner; PCP Internal Medicine
DX: S60.221A Contusion of right hand, initial encounter (principal); W22.09XA Striking against other stationary object, initial encounter; K21.9 Gastro-esophageal reflux disease without esophagitis; F41.9 Anxiety disorder, unspecified; F32.A Depression, unspecified; F17.290 Nicotine dependence, other tobacco product, uncomplicated
CPT/HCPCS: 73130; 99213; G0463